=== PATIENT | female | born 1980 | race Caucasian/White ===

== ENCOUNTER 2016-05-21 15:55 | Inpatient (IN) | payer OTHER ==
[2016-05-21 18:01] VITALS: BMI 24.6
--- NOTE | 2016-05-21 19:47 | HP ---
COWS - Scale Resting Pulse: 0= HI 80 or Below Sweatin= Chills/Flushing Restless Observation: 3= Extraneous Movement Pupil Size: 0= Normal to Room Light Bone or Joint Aches: 2= Severe Diffuse Aches Runny Nose/ Eye Tearin= Runny Nose/Eyes GI Upset > 30mins: 2= Nausea/Diarrhea Tremor Observation: 2= Slight Tremor Visible Yawning Observation: 1= 1-2x During Session Anxiety or Irritability: 2=Irritable/Anxious Goose Flesh Skin: 3=Piloerection COWS Score: 18 CIWA Score - CIWA Score Nausea/Vomitin-Mild Nausea/No Vomiting Muscle Tremors: 4-Moderate,w/Arms Extend Anxiety: 4-Mod. Anxious/Guarded Agitation: 4-Moderately Restless Paroxysmal Sweats: 1-Minimal Palms Moist Orientation: 1-Uncertain about Date Tacttile Disturbances: 0-None Auditory Disturbances: 0-None Visual Disturbances: 0-None Headache: 1-Very Mild CIWA-Ar Total Score: 16 Admission ROS S - HPI Chief Complaint: WITHDRAWAL SX Allergies/Adverse Reactions: Allergies Allergy/AdvReac Type Severity Reaction Status Date / Time diphenhydramine HCl Allergy Severe Swelling Verified 03/07/16 11:07 [From Benadryl] sulfamethoxazole Allergy Severe Swelling Verified 03/07/16 11:07 [From Bactrim] trimethoprim [From Bactrim] Allergy Severe Swelling Verified 03/07/16 11:07 History of Present Illness: 35 YEARS OLD FEMALE WITH LONG HISTORY OF HEROIN ALCOHOL NICOTINE DEPENDENCE, HAS ASTHMA AND HERNIATED DISC AND BIPOLAR LONGEST SOBRIETY 7 DAYS IS ADMITTED TO DETOX Exam Limitations: No Limitations - Ebola screening Have you traveled outside of the country in the last 21 days: No Have you had contact with anyone from an Ebola affected area: No Have you been sick,other than usual withdrawal symptoms: No Do you have a fever: No - Review of Systems Constitutional: Chills, Loss of Appetite, Changes in sleep, Unintentional Wgt. Loss EENT: reports: No Symptoms Reported Respiratory: reports: SOB with Exertion, Productive cough Cardiac: reports: No Symptoms Reported GI: reports: Diarrhea, Nausea, Poor Appetite, Poor Fluid Intake, Abdominal cramping : reports: No Symptoms Reported Musculoskeletal: reports: Back Pain, Joint Pain, Muscle Pain, Neck Pain Integumentary: reports: Change in Color (BOTH FORE ARMS) Neuro: reports: Tremors Endocrine: reports: No Symptoms Reported Hematology: reports: No Symptoms Reported Psychiatric: reports: Judgement Intact, Anxious, Depressed Other Systems: Reviewed and Negative Patient History - Patient Medical History Hx Anemia: No Hx Asthma: Yes (Pt is on MDI) Hx Chronic Obstructive Pulmonary Disease (COPD): No Hx Cancer: No Hx Cardiac Disorders: No Hx Congestive Heart Failure: No Hx Hypertension: No Hx Hypercholesterolemia: No Hx Pacemaker: No HX Cerebrovascular Accident: No Hx Seizures: No Hx Dementia: No Hx Diabetes: No Hx Gastrointestinal Disorders: No Hx Liver Disease: No Hx Genitourinary Disorders: No Hx Sexually Transmitted Disorders: No Hx Renal Disease (ESRD): No Hx Thyroid Disease: No Hx Human Immunodeficiency Virus (HIV): No (NEGATIVE HX) Hx Hepatitis C: No Hx Depression: No (NOT CURRENTLY ON MED) Hx Suicide Attempt: Yes (tried to slit wrist a year ago;DENIES S/H IDEATIONS) Hx Bipolar Disorder: Yes Hx Schizophrenia: No - Patient Surgical History Past Surgical History: Yes Hx Neurologic Surgery: No Hx Cataract Extraction: No Hx Cardiac Surgery: No Hx Lung Surgery: No Hx Breast Surgery: No Hx Breast Biopsy: No Hx Abdominal Surgery: No Hx Appendectomy: No Hx Cholecystectomy: No Hx Genitourinary Surgery: No Hx Section: No Hx Orthopedic Surgery: No Hx Hysterectomy: No Other Surgical History: Tubal ligation in 2001. Anesthesia Reaction: No - PPD History Previous Implant?: Yes Documented Results: Negative w/o proof Implanted On Prior [facility] Admission?: Yes Date: 03/09/16 Results: TO BE DONE PPD to be Administered?: Yes - Reproductive History Patient is a Female of Child Bearing Age (11 -55 yrs old): Yes Last Menstrual Period: 05/07/16 Patient : No - Smoking Cessation Smoking history: Current every day smoker Have you smoked in the past 12 months: Yes Aproximately how many cigarettes per day: 20 Cigars Per Day: 0 Hx Chewing Tobacco Use: No Initiated information on smoking cessation: Yes 'Breaking Loose' booklet given: 05/21/16 - Substance & Tx. History Hx Alcohol Use: Yes Hx Substance Use: Yes Substance Use Type: Alcohol, Marijuana, Opiates Hx Substance Use Treatment: Yes - Substances Abused Alcohol Route: Oral Frequency: 3-6 times per week Amount used: 24OZX 4 BEER Age of first use: 10 Date of Last Use: 05/21/16 Heroin Route: Injection Frequency: Daily Amount used: 20 BAGS Age of first use: 27 Date of Last Use: 05/20/16 Family Disease History - Family Disease History Other Family History: GROW UP IN [facility] Admission Physical Exam S - Vital Signs Vital Signs: Vital Signs - 24 hr 05/21/16 17:58 Temperature 98.0 F Pulse Rate 63 Respiratory 18 Rate Blood Pressure 94/67 - Physical General Appearance: Yes: Appropriately Dressed, Mild Distress, Thin, Tremorous, Irritable, Sweating, Anxious HEENTM: Yes: Hearing grossly Normal, Normal ENT Inspection, Normocephalic, Normal Voice, Other (RIGHT LOWER TOOTH FX-GUM SWELL-AMOXICILLIN + LIDOCAIN) Respiratory: Yes: Chest Non-Tender, Lungs Clear, Normal Breath Sounds, No Respiratory Distress, No Accessory Muscle Use Neck: Yes: Supple, Trachea in good position Breast: Yes: Breasts Symetrical Cardiology: Yes: Regular Rhythm, Regular Rate, S1, S2 Abdominal: Yes: Non Tender, Soft Genitourinary: Yes: Within Normal Limits Back: Yes: Normal Inspection Musculoskeletal: Yes: full range of Motion, Gait Steady, Back pain, Muscle Pain Extremities: Yes: Normal Range of Motion, Non-Tender, Tremors Neurological: Yes: Alert, Motor Strength 5/5, Normal Response, Depressed Affect Integumentary: Yes: Warm, Moist, Track Howard Lymphatic: Yes: Within Normal Limits - Diagnostic (1) Alcohol dependence with uncomplicated withdrawal Current Visit: Yes Status: Acute (2) Bipolar disorder Current Visit: Yes Status: Suspected Qualifiers: Active/Remission status: in partial remission Most recent bipolar episode type: mixed Qualified Code(s): F31.77 - Bipolar disorder, in partial remission, most recent episode mixed (3) Opioid dependence with withdrawal Current Visit: Yes Status: Acute (4) Asthma Current Visit: Yes Status: Acute Qualifiers: Asthma severity: mild persistent Asthma complication type: with status asthmaticus Qualified Code(s): J45.32 - Mild persistent asthma with status asthmaticus (5) Fracture, tooth Current Visit: Yes Status: Acute Qualifiers: Encounter type: initial encounter Fracture type: closed Qualified Code(s): S02.5XXA - Fracture of tooth (traumatic), initial encounter for closed fracture (6) Herniated lumbar intervertebral disc Current Visit: Yes Status: Acute (7) Weight loss Current Visit: Yes Status: Acute Cleared for Admission [facility] - Detox or Rehab [facility] Level of Care: Medically Managed Detox Regimen/Protocol: Methadone/Librium [facility] Breath Alcohol Content Breath Alcohol Content: 0 Urine Pregancy Test - Result Urine Test Results: Negative- NO Line Present Urine Drug Screen - Results Drug Screen Negative: No Urine Drug Screen Results: THC-Marijuana, OPI-Opiates, OXY-Oxycodone
[2016-05-21] MEDS ORDERED: METHADONE HCL 10 MG TABLET (FOR DETOX USE ONLY) PO ONE ×2 (19:54→23:00)
[2016-05-21] MEDS ORDERED: guaiFENesin/D-METHORPHAN HB 10 ML UNIT-DOSE CUPS PO PRN (19:54)
[2016-05-21] MEDS ORDERED: MENTHOL/PHENOL 1 EACH UD MM PRN (19:54)
[2016-05-21] MEDS ORDERED: chlordiazePOXIDE HCL 25 MG CAPSULE PO PRN (19:54)
[2016-05-21] MEDS ORDERED: P-EPHED 60MG/TRIPROLIDI 2.5MG TABLET PO PRN (19:54)
[2016-05-21] MEDS ORDERED: MAG HYDROX/AL HYDROX/SIMETH 30 ML UNIT-DOSE CUP PO PRN (19:54)
[2016-05-21] MEDS ORDERED: MAGNESIUM CITRATE 300 ML BOTTLE PO PRN (19:54)
[2016-05-21] MEDS ORDERED: MAGNESIUM HYDROX 2400MG/30ML ORAL SUSPENSION 30 ML CUP PO PRN (19:54)
[2016-05-21] MEDS ORDERED: ACETAMINOPHEN 325 MG TABLET (FP) PO PRN (19:54)
[2016-05-21] MEDS ORDERED: LOPERAMIDE HCL 2 MG CAPSULE PO PRN (19:54)
[2016-05-21] MEDS ORDERED: LIDOCAINE VISCOUS 2% ORAL/TOP 20 ML UNIT-DOSE CUP MM PRN (19:57)
[2016-05-21] MEDS ORDERED: ALBUTEROL SO4 2.5/IPRATROPIUM 0.5 INH SOL 3 ML VIAL.NEB. NEB PRN (19:57)
[2016-05-21] MEDS ORDERED: BACITRACIN 0.9 GM PACKET TP ONE (19:57)
[2016-05-21] MEDS: THIAMINE HCL 100 MG TABLET (FP) PO SCH (22:30)
[2016-05-21] MEDS: chlordiazePOXIDE HCL 25 MG CAPSULE PO SCH (22:30)
[2016-05-21] MEDS: CYCLOBENZAPRINE HCL 10 MG TABLET (FP) PO PRN (22:31)
[2016-05-21] MEDS: AMOXICILLIN 500 MG CAPSULE (FP) PO SCH (22:35)
[2016-05-21 23:28] LABS: URINE APPEARANCE CLOUDY; URINE BILIRUBIN NEGATIVE (NEGATIVE); URINE BLOOD NEGATIVE (NEGATIVE); URINE COLOR YELLOW; URINE GLUCOSE (UA) NEGATIVE (NEGATIVE); URINE KETONE NEGATIVE (NEGATIVE); URINE NITRITE NEGATIVE (NEGATIVE); URINE PROTEIN NEGATIVE (NEGATIVE); URINE UROBILINOGEN NEGATIVE E.U./dl (0.2-1.0)
[2016-05-22] LABS: URINE LEUK ESTERASE 1+ (NEGATIVE)
[2016-05-22 00:08] LABS: URINE BACTERIA RARE /hpf (NONE SEEN); URINE MUCUS RARE; URINE RBC 6 /hpf (0-3); URINE WBC 14 /hpf (3-5)
[2016-05-22] MEDS: chlordiazePOXIDE HCL 25 MG CAPSULE PO SCH ×4 (06:01→22:12)
[2016-05-22] MEDS: IBUPROFEN 400 MG TABLET (FP) PO PRN ×3 (06:02→19:45)
--- NOTE | 2016-05-22 07:41 | CONSULT ---
[facility] Psychiatric Consult - Data Date of interview: 05/22/16 Admission source: [facility] Identifying data: This is 35 years old female with history of psychiatric hospitalization, history of Bipolar Disorder, intoxicated with: Alcohol, Opioids, Nicpotine Substance Abuse History: - Smoking Cessation. Smoking history: Current every day smoker. Have you smoked in the past 12 months: Yes. Aproximately how many cigarettes per day: 20. Cigars Per Day: 0. Hx Chewing Tobacco Use: No. Initiated information on smoking cessation: Yes. 'Breaking Loose' booklet given : 05/21/16. - Substance & Tx. History. Hx Alcohol Use: Yes. Hx Substance Use : Yes. Substance Use Type: Alcohol, Marijuana, Opiates. Hx Substance Use Treatment: Yes. - Substances Abused. Alcohol. Route: Oral. Frequency: 3- 6 times per week. Amount used: 24OZX 4 BEER. Age of first use: 10. Date of Last Use: 05/21/16. Heroin. Route: Injection. Frequency: Daily. Amount used: 20 BAGS. Age of first use: 27. Date of Last Use: 05/20/16 Medical History: Asthma, LBP, Lumbar herniation history, Weight loss Psychiatric History: Patient reports to carry Bipolar Disorder, reportas most recent psychiatgric admission at [facility] due to Psychotic episode on 2015, reports currently taking: Trazodone 100mg po qhs. Risperdal 1mg po,bid. Prozac 20mg poqd Physical/Sexual Abuse/Trauma History: Denies Additional Comment: Trazodone 100mg po qhs. Risperdal 1mg po,bid. Prozac 20mg poqd Mental Status Exam - Mental Status Exam Alert and Oriented to: Person Cognitive Function: Fair Patient Appearance: Unkempt Mood: Sad Affect: Flat Patient Behavior: Sedated Speech Pattern: Delayed Voice Loudness: Mildly Soft/Quiet Thought Process: Goal Oriented Thought Disorder: Being Controlled Hallucinations: Denies Suicidal Ideation: Denies Homicidal Ideation: Denies Insight/Judgement: Fair Sleep: Difficulty falling asleep Appetite: Weight loss Muscle strength/Tone: Mild Hypotonicity Gait/Station: Shuffling Additional Comments: Trazodone 100mg po qhs. Risperdal 1mg po,bid. Prozac 20mg poqd Psychiatric Findings - Problem List ([place] 1, 2,3) (1) Alcohol dependence with uncomplicated withdrawal Current Visit: Yes Status: Acute (2) Opioid dependence with withdrawal Current Visit: Yes Status: Acute (3) Weight loss Current Visit: Yes Status: Acute (4) Bipolar disorder Current Visit: Yes Status: Suspected Qualifiers: Active/Remission status: in partial remission Most recent bipolar episode type: mixed Qualified Code(s): F31.77 - Bipolar disorder, in partial remission, most recent episode mixed (5) Drug-induced mood disorder Current Visit: No Status: Acute - Initial Treatment Plan Initial Treatment Plan: Trazodone 100mg po qhs. Risperdal 1mg po,bid. Prozac 20mg poqd
[2016-05-22] MEDS ORDERED: METHADONE HCL 10 MG TABLET (FOR DETOX USE ONLY) PO SCH (10:00)
[2016-05-22] MEDS ORDERED: TRIMETHOBENZAMIDE HCL 200MG/2ML INJ IM ONE (10:03)
[2016-05-22] MEDS: PRENATAL VITAMINS W/ FOLIC ACID TABLET (FP) PO SCH (10:26)
[2016-05-22] MEDS: FLUoxetine HCL 20 MG CAPSULE (FP) PO SCH (10:26)
[2016-05-22] MEDS: risperiDONE 1 MG TABLET (FP) PO SCH ×2 (10:26→22:12)
[2016-05-22] MEDS: NICOTINE 21 MG/24 HOURS TOPICAL PATCH TD SCH (10:27)
[2016-05-22] MEDS: TRIMETHOBENZAMIDE HCL 300 MG CAPSULE PO PRN (10:30)
[2016-05-22 10:31] LABS: MCH 31.4 pg (25.7-33.7); MCHC 34.2 g/dl (32.0-36.0); MEAN CELL VOLUME 91.6 fl (80-96); MEAN PLT VOLUME 8.3 fl (7.5-11.1); PLATELET COUNT 195 K/MM3 (134-434); RDW 13.2 % (11.6-15.6); WHITE BLOOD COUNT 6.7 K/mm3 (4.0-10.0)
[2016-05-22 10:53] LABS: ALBUMIN 3.7 g/dl (3.4-5.0); ALK PHOS 71 U/L (45-117); ANION GAP 6 (8-16); BILIRUBIN,TOTAL 0.6 mg/dL (0.2-1.0); CALCIUM 8.8 mg/dL (8.5-10.1); CO2 26 mmol/L (21-32); CREATININE 0.7 mg/dL (0.55-1.02); GLUCOSE,RANDOM 89 mg/dL (74-106); SGOT/AST 13 U/L (15-37); SGPT/ALT 19 U/L (12-78); TOT PROT 6.8 g/dl (6.4-8.2)
--- NOTE | 2016-05-22 10:58 | PN ---
[facility] CIWA - CIWA Score Nausea/Vomitin-No Nausea/No Vomiting Muscle Tremors: 4-Moderate,w/Arms Extend Anxiety: 4-Mod. Anxious/Guarded Agitation: 4-Moderately Restless Paroxysmal Sweats: 3 Orientation: 0-Oriented Tacttile Disturbances: 0-None Auditory Disturbances: 0-None Visual Disturbances: 0-None Headache: 1-Very Mild CIWA-Ar Total Score: 16 BHS COWS - Scale Resting Pulse: 0= NM 80 or Below Sweatin=Flushed/Facial Moisture Restless Observation: 1= Difficult to Sit Still Pupil Size: 0= Normal to Room Light Bone or Joint Aches: 2= Severe Diffuse Aches Runny Nose/ Eye Tearin= Runny Nose/Eyes GI Upset > 30mins: 2= Nausea/Diarrhea Tremor Observation of Outstretched Hands: 2= Slight Tremor Visible Yawning Observation: 2= >3x During Session Anxiety or Irritability: 2=Irritable/Anxious Goose Flesh Skin: 3=Piloerection COWS Score: 18 BHS Progress Note (SOAP) Subjective: shakes sweats interrupted sleep agitation anxiety nausea/vomiting tearing eyes Objective: 05/22/16 10:57 Vital Signs Temperature 96.4 F L 05/22/16 10:08 Pulse Rate 68 05/22/16 10:08 Respiratory Rate 20 05/22/16 10:08 Blood Pressure 99/65 05/22/16 10:08 O2 Sat by Pulse Oximetry (%) Laboratory Tests 05/21/16 05/22/16 22:22 07:00 WBC 6.7 D RBC 4.28 Hgb 13.4 Hct 39.2 MCV 91.6 MCHC 34.2 RDW 13.2 D Plt Count 195 MPV 8.3 Urine Color Yellow Urine Appearance Cloudy Urine pH 5.0 Ur Specific [place] 1.027 Urine Protein Negative Urine Glucose (UA) Negative Urine Ketones Negative Urine Blood Negative Urine Nitrite Negative Urine Bilirubin Negative Urine Urobilinogen Negative Ur Leukocyte Esterase 1+ H Urine RBC 6 Urine WBC 14 Ur Epithelial Cells Many Urine Bacteria Rare Urine Mucus Rare labs pending awake/alert ambulating no acute distress Assessment: 05/22/16 10:57 withdrawal sx Plan: continue detox increase fluids tigan IM x one dose tigan po prn labs pending
[2016-05-22] MEDS: AMOXICILLIN 500 MG CAPSULE (FP) PO SCH ×2 (11:31→22:14)
--- NOTE | 2016-05-22 11:47 | EKG ---
Test Reason : Blood Pressure : / mmHG Vent. Rate : 053 BPM Atrial Rate : 053 BPM P-R Int : 158 ms QRS Dur : 094 ms QT Int : 414 ms P-R-T Axes : 068 085 044 degrees QTc Int : 388 ms SINUS BRADYCARDIA WITH SINUS ARRHYTHMIA INCOMPLETE RIGHT BUNDLE BRANCH BLOCK BORDERLINE ECG NO PREVIOUS ECGS AVAILABLE Confirmed by MELANI ABBOTT MD ([id number]) on 05/22/2016 11:47:00 AM Referred By: Confirmed By:MELANI ABBOTT MD
[2016-05-22] MEDS: CYCLOBENZAPRINE HCL 10 MG TABLET (FP) PO PRN ×2 (12:03→22:12)
[2016-05-22] MEDS: LIDOCAINE 5% TOPICAL PATCH TP SCH (12:04)
[2016-05-22] MEDS: ALBUTEROL SO4 6.7 GM HFA INHALER IH PRN ×2 (12:09→22:14)
[2016-05-22 12:26] LABS: HIV 1 & 2 AB NEGATIVE; HIV 1 AGp24 NEGATIVE
[2016-05-22] MEDS: THIAMINE HCL 100 MG TABLET (FP) PO SCH (22:12)
[2016-05-22] MEDS: traZODone HCL 100 MG TABLET (FP) PO SCH (22:12)
[2016-05-23] MEDS: chlordiazePOXIDE HCL 25 MG CAPSULE PO SCH ×3 (05:52→17:29)
[2016-05-23] MEDS: IBUPROFEN 400 MG TABLET (FP) PO PRN ×3 (05:52→22:11)
[2016-05-23] MEDS ORDERED: LIDOCAINE VISCOUS 2% ORAL/TOP 20 ML UNIT-DOSE CUP MM PRN (09:52)
[2016-05-23] MEDS: AMOXICILLIN 500 MG CAPSULE (FP) PO SCH ×2 (10:35→22:09)
[2016-05-23] MEDS: METHADONE HCL 5 MG TABLET (FOR DETOX USE ONLY) PO SCH (10:35)
[2016-05-23] MEDS: FLUoxetine HCL 20 MG CAPSULE (FP) PO SCH (10:36)
[2016-05-23] MEDS: PRENATAL VITAMINS W/ FOLIC ACID TABLET (FP) PO SCH (10:36)
[2016-05-23] MEDS: risperiDONE 1 MG TABLET (FP) PO SCH ×2 (10:36→22:09)
[2016-05-23] MEDS: NICOTINE 21 MG/24 HOURS TOPICAL PATCH TD SCH (10:38)
[2016-05-23] MEDS: CYCLOBENZAPRINE HCL 10 MG TABLET (FP) PO PRN ×2 (10:39→22:09)
[2016-05-23] MEDS: LIDOCAINE 5% TOPICAL PATCH TP SCH (10:42)
--- NOTE | 2016-05-23 10:56 | PN ---
S CIWA - CIWA Score Nausea/Vomitin Muscle Tremors: 3 Anxiety: 3 Agitation: 3 Paroxysmal Sweats: 3 Orientation: 0-Oriented Tacttile Disturbances: 2-Mild Itch/Numbness/Burn Auditory Disturbances: 0-None Visual Disturbances: 0-None Headache: 0-None Present CIWA-Ar Total Score: 17 BHS COWS - Scale Resting Pulse: 1= OR 81-100 Sweatin=Flushed/Facial Moisture Restless Observation: 1= Difficult to Sit Still Pupil Size: 1= Pupils >than Normal Bone or Joint Aches: 2= Severe Diffuse Aches Runny Nose/ Eye Tearin= Nasal Congestion GI Upset > 30mins: 1= Stomach Cramp Tremor Observation of Outstretched Hands: 2= Slight Tremor Visible Yawning Observation: 0= None Anxiety or Irritability: 2=Irritable/Anxious Goose Flesh Skin: 0=Smooth Skin COWS Score: 13 BHS Progress Note (SOAP) Subjective: interrupted sleep , sweats, shakes , nausea, toothache Objective: 05/23/16 10:53 Vital Signs Temperature 97.9 F 05/23/16 10:12 Pulse Rate 96 H 05/23/16 10:12 Respiratory Rate 18 05/23/16 10:12 Blood Pressure 99/61 05/23/16 10:12 O2 Sat by Pulse Oximetry (%) Laboratory Tests 05/21/16 05/22/16 05/22/16 22:22 07:00 07:00 WBC 6.7 D RBC 4.28 Hgb 13.4 Hct 39.2 MCV 91.6 MCHC 34.2 RDW 13.2 D Plt Count 195 MPV 8.3 Sodium 139 Potassium 4.1 Chloride 107 Carbon Dioxide 26 Anion Gap 6 L BUN 7 D Creatinine 0.7 Creat Clearance w eGFR > 60 Random Glucose 89 Calcium 8.8 Total Bilirubin 0.6 D AST 13 L ALT 19 D Alkaline Phosphatase 71 Total Protein 6.8 Albumin 3.7 Urine Color Yellow Urine Appearance Cloudy Urine pH 5.0 Ur Specific [place] 1.027 Urine Protein Negative Urine Glucose (UA) Negative Urine Ketones Negative Urine Blood Negative Urine Nitrite Negative Urine Bilirubin Negative Urine Urobilinogen Negative Ur Leukocyte Esterase 1+ H Urine RBC 6 Urine WBC 14 Ur Epithelial Cells Many Urine Bacteria Rare Urine Mucus Rare RPR Titer Hepatitis C Antibody HIV 1&2 Antibody Screen HIV P24 Antigen 05/22/16 05/22/16 05/22/16 07:00 07:00 07:00 WBC RBC Hgb Hct MCV MCHC RDW Plt Count MPV Sodium Potassium Chloride Carbon Dioxide Anion Gap BUN Creatinine Creat Clearance w eGFR Random Glucose Calcium Total Bilirubin AST ALT Alkaline Phosphatase Total Protein Albumin Urine Color Urine Appearance Urine pH Ur Specific [place] Urine Protein Urine Glucose (UA) Urine Ketones Urine Blood Urine Nitrite Urine Bilirubin Urine Urobilinogen Ur Leukocyte Esterase Urine RBC Urine WBC Ur Epithelial Cells Urine Bacteria Urine Mucus RPR Titer Nonreactive Hepatitis C Antibody <0.1 HIV 1&2 Antibody Screen Negative HIV P24 Antigen Negative pt aox3 in nad ambulating Assessment: 05/23/16 10:54 withdrawl sx's ltoothache lbp Plan: cont. detox increase fluids viscouis lidocaine q 6h motrin prn
[2016-05-23] MEDS: NICOTINE POLACRILEX 2 MG GUM BUC PRN ×2 (11:07→19:44)
[2016-05-23] MEDS: ALBUTEROL SO4 6.7 GM HFA INHALER IH PRN (22:09)
[2016-05-23] MEDS: traZODone HCL 100 MG TABLET (FP) PO SCH (22:09)
[2016-05-23] MEDS: chlordiazePOXIDE 5 MG CAPSULE PO SCH (22:09)
[2016-05-23] MEDS: THIAMINE HCL 100 MG TABLET (FP) PO SCH (22:09)
[2016-05-24] MEDS: chlordiazePOXIDE 5 MG CAPSULE PO SCH ×3 (07:03→17:08)
[2016-05-24] MEDS: IBUPROFEN 400 MG TABLET (FP) PO PRN ×2 (07:04→22:15)
[2016-05-24] MEDS: PRENATAL VITAMINS W/ FOLIC ACID TABLET (FP) PO SCH (10:44)
[2016-05-24] MEDS: AMOXICILLIN 500 MG CAPSULE (FP) PO SCH ×2 (10:44→22:14)
[2016-05-24] MEDS: risperiDONE 1 MG TABLET (FP) PO SCH ×2 (10:44→22:15)
[2016-05-24] MEDS: FLUoxetine HCL 20 MG CAPSULE (FP) PO SCH (10:44)
[2016-05-24] MEDS: LIDOCAINE 5% TOPICAL PATCH TP SCH (10:45)
[2016-05-24] MEDS: CYCLOBENZAPRINE HCL 10 MG TABLET (FP) PO PRN ×2 (10:45→22:14)
[2016-05-24] MEDS: METHADONE HCL 5 MG TABLET (FOR DETOX USE ONLY) PO SCH (10:45)
[2016-05-24] MEDS: ALBUTEROL SO4 6.7 GM HFA INHALER IH PRN (10:48)
[2016-05-24] MEDS: NICOTINE 21 MG/24 HOURS TOPICAL PATCH TD SCH (10:49)
--- NOTE | 2016-05-24 11:51 | PN ---
BHS Progress Note (SOAP) Subjective: hot/cold sweats chills sweats Objective: 05/24/16 11:50 Vital Signs Temperature 96.6 F L 05/24/16 10:00 Pulse Rate 93 H 05/24/16 10:00 Respiratory Rate 16 05/24/16 10:00 Blood Pressure 90/53 05/24/16 10:00 O2 Sat by Pulse Oximetry (%) Laboratory Tests 05/21/16 05/22/16 05/22/16 22:22 07:00 07:00 WBC 6.7 D RBC 4.28 Hgb 13.4 Hct 39.2 MCV 91.6 MCHC 34.2 RDW 13.2 D Plt Count 195 MPV 8.3 Sodium 139 Potassium 4.1 Chloride 107 Carbon Dioxide 26 Anion Gap 6 L BUN 7 D Creatinine 0.7 Creat Clearance w eGFR > 60 Random Glucose 89 Calcium 8.8 Total Bilirubin 0.6 D AST 13 L ALT 19 D Alkaline Phosphatase 71 Total Protein 6.8 Albumin 3.7 Urine Color Yellow Urine Appearance Cloudy Urine pH 5.0 Ur Specific [place] 1.027 Urine Protein Negative Urine Glucose (UA) Negative Urine Ketones Negative Urine Blood Negative Urine Nitrite Negative Urine Bilirubin Negative Urine Urobilinogen Negative Ur Leukocyte Esterase 1+ H Urine RBC 6 Urine WBC 14 Ur Epithelial Cells Many Urine Bacteria Rare Urine Mucus Rare RPR Titer Hepatitis C Antibody HIV 1&2 Antibody Screen HIV P24 Antigen 05/22/16 05/22/16 05/22/16 07:00 07:00 07:00 WBC RBC Hgb Hct MCV MCHC RDW Plt Count MPV Sodium Potassium Chloride Carbon Dioxide Anion Gap BUN Creatinine Creat Clearance w eGFR Random Glucose Calcium Total Bilirubin AST ALT Alkaline Phosphatase Total Protein Albumin Urine Color Urine Appearance Urine pH Ur Specific [place] Urine Protein Urine Glucose (UA) Urine Ketones Urine Blood Urine Nitrite Urine Bilirubin Urine Urobilinogen Ur Leukocyte Esterase Urine RBC Urine WBC Ur Epithelial Cells Urine Bacteria Urine Mucus RPR Titer Nonreactive Hepatitis C Antibody <0.1 HIV 1&2 Antibody Screen Negative HIV P24 Antigen Negative awake/alert ambulating no acute distress Assessment: 05/24/16 11:51 withdrawal sx Plan: continue detox increase fluids
[2016-05-24] MEDS: NICOTINE POLACRILEX 2 MG GUM BUC PRN ×3 (13:41→20:19)
[2016-05-24] MEDS: traZODone HCL 100 MG TABLET (FP) PO SCH (22:14)
[2016-05-24] MEDS: chlordiazePOXIDE HCL 10 MG CAPSULE PO SCH (22:15)
[2016-05-24] MEDS: THIAMINE HCL 100 MG TABLET (FP) PO SCH (22:16)
[2016-05-25] MEDS: chlordiazePOXIDE HCL 10 MG CAPSULE PO SCH ×2 (05:52→10:51)
[2016-05-25] MEDS ORDERED: METHADONE HCL 10 MG TABLET (FOR DETOX USE ONLY) PO SCH (10:00)
[2016-05-25] MEDS: TRIMETHOBENZAMIDE HCL 300 MG CAPSULE PO PRN (10:01)
[2016-05-25 10:06] VITALS: BP 104/50; PULSE 91; TEMP 97.2
[2016-05-25] MEDS: PRENATAL VITAMINS W/ FOLIC ACID TABLET (FP) PO SCH (10:51)
[2016-05-25] MEDS: risperiDONE 1 MG TABLET (FP) PO SCH (10:51)
[2016-05-25] MEDS: NICOTINE 21 MG/24 HOURS TOPICAL PATCH TD SCH (10:51)
[2016-05-25] MEDS: FLUoxetine HCL 20 MG CAPSULE (FP) PO SCH (10:51)
[2016-05-25] MEDS: AMOXICILLIN 500 MG CAPSULE (FP) PO SCH (10:52)
--- NOTE | 2016-05-25 12:04 | PN ---
BHS Progress Note (SOAP) Subjective: No complaints, does not want to stay for additional day of methadonem was medicated this am Objective: 05/25/16 12:03 Vital Signs - 24 hr 05/24/16 05/24/16 05/24/16 15:12 17:55 22:01 Temperature 97.9 F 97.9 F 96.8 F L Pulse Rate 101 H 80 90 Respiratory 18 20 20 Rate Blood Pressure 95/58 80/49 85/46 05/24/16 05/25/16 05/25/16 22:10 00:30 03:30 Temperature Pulse Rate Respiratory 16 18 Rate Blood Pressure 120/61 05/25/16 05/25/16 06:33 10:05 Temperature 98.6 F 97.2 F L Pulse Rate 76 91 H Respiratory 18 18 Rate Blood Pressure 104/66 104/50 Laboratory Tests 05/21/16 05/22/16 05/22/16 22:22 07:00 07:00 WBC 6.7 D RBC 4.28 Hgb 13.4 Hct 39.2 MCV 91.6 MCHC 34.2 RDW 13.2 D Plt Count 195 MPV 8.3 Sodium 139 Potassium 4.1 Chloride 107 Carbon Dioxide 26 Anion Gap 6 L BUN 7 D Creatinine 0.7 Creat Clearance w eGFR > 60 Random Glucose 89 Calcium 8.8 Total Bilirubin 0.6 D AST 13 L ALT 19 D Alkaline Phosphatase 71 Total Protein 6.8 Albumin 3.7 Urine Color Yellow Urine Appearance Cloudy Urine pH 5.0 Ur Specific [place] 1.027 Urine Protein Negative Urine Glucose (UA) Negative Urine Ketones Negative Urine Blood Negative Urine Nitrite Negative Urine Bilirubin Negative Urine Urobilinogen Negative Ur Leukocyte Esterase 1+ H Urine RBC 6 Urine WBC 14 Ur Epithelial Cells Many Urine Bacteria Rare Urine Mucus Rare RPR Titer Hepatitis C Antibody HIV 1&2 Antibody Screen HIV P24 Antigen 05/22/16 05/22/16 05/22/16 07:00 07:00 07:00 WBC RBC Hgb Hct MCV MCHC RDW Plt Count MPV Sodium Potassium Chloride Carbon Dioxide Anion Gap BUN Creatinine Creat Clearance w eGFR Random Glucose Calcium Total Bilirubin AST ALT Alkaline Phosphatase Total Protein Albumin Urine Color Urine Appearance Urine pH Ur Specific [place] Urine Protein Urine Glucose (UA) Urine Ketones Urine Blood Urine Nitrite Urine Bilirubin Urine Urobilinogen Ur Leukocyte Esterase Urine RBC Urine WBC Ur Epithelial Cells Urine Bacteria Urine Mucus RPR Titer Nonreactive Hepatitis C Antibody <0.1 HIV 1&2 Antibody Screen Negative HIV P24 Antigen Negative Assessment: 05/25/16 12:04 medically stable, no withdrawal sx Plan: regular discharge today, reviewed labwork
--- NOTE | 2016-05-25 12:06 | DS ---
[facility] Detox Discharge Summary Admission Date: 05/21/16 Discharge Date: 05/25/16 - History Present History: Alcohol Dependence, Opioid Dependence Pertinent Past History: astma, dental fx tooth - Physical Exam Results Vital Signs: Vital Signs Temperature 97.2 F L 05/25/16 10:05 Pulse Rate 91 H 05/25/16 10:05 Respiratory Rate 18 05/25/16 10:05 Blood Pressure 104/50 05/25/16 10:05 O2 Sat by Pulse Oximetry (%) Pertinent Admission Physical Exam Findings: withdrawal sx - Treatment Hospital Course: Detox Protocol Followed, Detoxed Safely, Responded well, Discharged Condition Good, Rehab Referral Accepted Patient has Accepted a Rehab Referral to: Yes - Medication Discharge Medications: Ambulatory Orders Albuterol Sulfate Inhaler - [Ventolin Hfa Inhaler -] 2 inh PO Q4H PRN 03/07/16 Fluoxetine HCl [Prozac -] 20 mg PO DAILY 03/07/16 Risperidone [Risperdal -] 1 mg PO BID #60 tablet 03/07/16 Trazodone HCl [Desyrel -] 100 mg PO HS 03/07/16 Fluoxetine HCl [Prozac -] 20 mg PO DAILY #30 capsule 05/22/16 Risperidone [Risperdal -] 1 mg PO BID #60 tablet 05/22/16 Trazodone HCl [Desyrel -] 100 mg PO HS #30 tablet 05/22/16 - Diagnosis (1) Alcohol dependence with uncomplicated withdrawal Current Visit: Yes Status: Acute (2) Asthma Current Visit: Yes Status: Acute Qualifiers: Asthma severity: mild persistent Asthma complication type: with status asthmaticus Qualified Code(s): J45.32 - Mild persistent asthma with status asthmaticus (3) Fracture, tooth Current Visit: Yes Status: Acute Qualifiers: Encounter type: initial encounter Fracture type: closed Qualified Code(s): S02.5XXA - Fracture of tooth (traumatic), initial encounter for closed fracture (4) Herniated lumbar intervertebral disc Current Visit: Yes Status: Acute (5) Opioid dependence with withdrawal Current Visit: Yes Status: Acute (6) Weight loss Current Visit: Yes Status: Acute (7) Bipolar disorder Current Visit: Yes Status: Suspected Qualifiers: Active/Remission status: in partial remission Most recent bipolar episode type: mixed Qualified Code(s): F31.77 - Bipolar disorder, in partial remission, most recent episode mixed (8) Drug-induced mood disorder Current Visit: No Status: Acute (9) History of asthma Current Visit: No Status: Chronic
[2016-05-26] MEDS ORDERED: METHADONE HCL 5 MG TABLET (FOR DETOX USE ONLY) PO SCH (06:00)
== END 2016-05-25 12:35 | disposition home or self-care (01) | DRG 897 ==
LOC: YASAS 15:55 → Y6N 20:59
PROVIDERS: ADMIT Internal Medicine Addiction Medicine; ATTEND Internal Medicine Addiction Medicine
PROC: HZ2ZZZZ Detoxification Services for Substance Abuse Treatment (ICD-10-PCS; principal; 2016-05-21)
DX: F19.230 Other psychoactive substance dependence with withdrawal, uncomplicated (principal); J45.32 Mild persistent asthma with status asthmaticus; F11.23 Opioid dependence with withdrawal; F10.230 Alcohol dependence with withdrawal, uncomplicated; F17.210 Nicotine dependence, cigarettes, uncomplicated; F19.24 Other psychoactive substance dependence with psychoactive substance-induced mood disorder; F31.77 Bipolar disorder, in partial remission, most recent episode mixed; K08.89 Other specified disorders of teeth and supporting structures; S02.5XXD Fracture of tooth (traumatic), subsequent encounter for fracture with routine healing; X58.XXXD Exposure to other specified factors, subsequent encounter; M51.26 Other intervertebral disc displacement, lumbar region; M54.5 Low back pain; Z87.898 Personal history of other specified conditions; Z91.5 Personal history of self-harm
CPT/HCPCS: 36415; 80053; 81003; 81015; 85027; 86593; 86803; 87389; 93005; 93010; 94640; J2794

== ENCOUNTER 2017-08-19 14:26 | Inpatient (IN) | payer OTHER ==
[2017-08-19 15:50] VITALS: BMI 28.3
--- NOTE | 2017-08-19 17:55 | HP ---
COWS - Scale Resting Pulse: 0= HI 80 or Below Sweatin= Chills/Flushing Restless Observation: 3= Extraneous Movement Pupil Size: 1= Pupils >than Normal Bone or Joint Aches: 1= Mild Discomfort Runny Nose/ Eye Tearin= Runny Nose/Eyes GI Upset > 30mins: 2= Nausea/Diarrhea Tremor Observation: 2= Slight Tremor Visible Yawning Observation: 1= 1-2x During Session Anxiety or Irritability: 2=Irritable/Anxious Goose Flesh Skin: 0=Smooth Skin COWS Score: 15 CIWA Score - CIWA Score Nausea/Vomitin (2x) Muscle Tremors: 2 Anxiety: 3 Agitation: 3 Paroxysmal Sweats: 2 Orientation: 0-Oriented Tacttile Disturbances: 0-None Auditory Disturbances: 0-None Visual Disturbances: 0-None Headache: 0-None Present CIWA-Ar Total Score: 13 Admission ROS S - HPI Chief Complaint: I am here for detox , I dont feel well Allergies/Adverse Reactions: Allergies Allergy/AdvReac Type Severity Reaction Status Date / Time diphenhydramine HCl Allergy Severe Swelling Verified 05/21/16 20:28 [From Benadryl] sulfamethoxazole Allergy Severe Swelling Verified 05/21/16 20:28 [From Bactrim] trimethoprim [From Bactrim] Allergy Severe Swelling Verified 05/21/16 20:28 History of Present Illness: 36 byo female with hx of IV heroin, xanax, marijuana and nicotine dependence is here seeking detox. PMHX: herniated disc, asthma, bipolar, manic depression, PTSD, anxiety. Last detox 45 days ago [facility] [place]. Denies suicide / homicidal ideation, hx of suicide attempts about a year ago by laceration wrist. Longest period of sobriety three weeks. Exam Limitations: Physical Impairment (ambulates with cane) - Ebola screening Have you traveled outside of the country in the last 21 days: No Have you had contact with anyone from an Ebola affected area: No Have you been sick,other than usual withdrawal symptoms: No Do you have a fever: No - Review of Systems Constitutional: Chills EENT: reports: No Symptoms Reported Respiratory: reports: Shortness of Breath (r/t to asthma, reports schedule Neb tx q4h, last Neb at [place] [facility] last night) Cardiac: reports: No Symptoms Reported GI: reports: Diarrhea, Nausea, Vomiting, Abdominal cramping : reports: Other (incontinence at night) Musculoskeletal: reports: Back Pain, Other (uses back brace and cane) Integumentary: reports: No Symptoms Reported Neuro: reports: No Symptoms reported Endocrine: reports: No Symptoms Reported Hematology: reports: No Symptoms Reported Psychiatric: reports: Orientated x3, Anxious Other Systems: Reviewed and Negative Patient History - Patient Medical History Hx Anemia: No Hx Asthma: Yes (Pt is on MDI) Hx Chronic Obstructive Pulmonary Disease (COPD): No Hx Cancer: No Hx Cardiac Disorders: No Hx Congestive Heart Failure: No Hx Hypertension: No Hx Hypercholesterolemia: No Hx Pacemaker: No HX Cerebrovascular Accident: No Hx Seizures: No Hx Dementia: No Hx Diabetes: No Hx Gastrointestinal Disorders: No Hx Liver Disease: No Hx Genitourinary Disorders: No Hx Sexually Transmitted Disorders: No Hx Renal Disease (ESRD): No Hx Thyroid Disease: No Hx Human Immunodeficiency Virus (HIV): No (NEGATIVE HX, last tested a year ago) Hx Hepatitis C: No Hx Depression: Yes (NOT CURRENTLY ON MED) Hx Suicide Attempt: Yes (tried to slit wrist a year ago;DENIES S/H IDEATIONS) Hx Bipolar Disorder: Yes Hx Schizophrenia: No - Patient Surgical History Past Surgical History: Yes Hx Neurologic Surgery: No Hx Cataract Extraction: No Hx Cardiac Surgery: No Hx Lung Surgery: No Hx Breast Surgery: No Hx Breast Biopsy: No Hx Abdominal Surgery: No Hx Appendectomy: No Hx Cholecystectomy: No Hx Genitourinary Surgery: No Hx Section: No Hx Orthopedic Surgery: No Hx Hysterectomy: No Other Surgical History: Tubal ligation in 2001. Anesthesia Reaction: No - PPD History Previous Implant?: Yes Documented Results: Negative w/proof Date: 05/23/16 Results: TO BE DONE PPD to be Administered?: Yes - Reproductive History Patient is a Female of Child Bearing Age (11 -55 yrs old): Yes Last Menstrual Period: 05/07/16 Patient : No - Smoking Cessation Smoking history: Current every day smoker Have you smoked in the past 12 months: Yes Aproximately how many cigarettes per day: 30 Cigars Per Day: 0 Hx Chewing Tobacco Use: No Initiated information on smoking cessation: Yes 'Breaking Loose' booklet given: 08/19/17 - Substance & Tx. History Hx Alcohol Use: No Hx Substance Use: Yes Substance Use Type: Heroin, Marijuana, Tranquilizers Hx Substance Use Treatment: Yes - Substances Abused Heroin Route: Injection Frequency: Daily Amount used: 20 bags Age of first use: 28 Date of Last Use: 08/18/17 Marijuana/Hashish Route: Smoking Frequency: Daily Amount used: 1 bag Age of first use: 11 Date of Last Use: 08/17/17 Alprazolam (Xanax) Route: Oral Frequency: Daily Amount used: 6 mg Age of first use: 24 Date of Last Use: 08/17/17 Family Disease History - Family Disease History Family History: Unable to Obtain (grew up in group homes) Admission Physical Exam [facility] - Vital Signs Vital Signs: Vital Signs - 24 hr 08/19/17 15:45 Temperature 97.6 F Pulse Rate 69 Respiratory 20 Rate Blood Pressure 117/71 - Physical General Appearance: Yes: Disheveled, Thin, Tremorous, Anxious HEENTM: Yes: EOMI, Hearing grossly Normal, Normal ENT Inspection, Normocephalic , Normal Voice, BARB, Pharynx Normal, Tm's normal, Other (poor dentition) Respiratory: Yes: Chest Non-Tender, No Respiratory Distress, No Accessory Muscle Use, Wheezing Neck: Yes: No masses,lesions,Nodules, Trachea in good position Breast: Yes: Breast Exam Deferred Cardiology: Yes: Regular Rhythm, Regular Rate Abdominal: Yes: Normal Bowel Sounds, Non Tender, Flat, Soft Genitourinary: Yes: Within Normal Limits Back: Yes: Normal Inspection Musculoskeletal: Yes: full range of Motion, Gait Steady, Other (ambulates with cane) Extremities: Yes: Normal Capillary Refill, Normal Inspection, Normal Range of Motion, Non-Tender 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 NML intact, Fully Oriented, Alert, Motor Strength 5/5, Depressed Affect Integumentary: Yes: Normal Color, Dry, Warm Lymphatic: Yes: Within Normal Limits - Diagnostic (1) Sedative, hypnotic or anxiolytic dependence with withdrawal, unspecified Current Visit: Yes Status: Acute (2) Use of cane as ambulatory aid Current Visit: Yes Status: Chronic (3) Alcohol dependence with uncomplicated withdrawal Current Visit: Yes Status: Acute (4) Asthma Current Visit: Yes Status: Chronic Qualifiers: Asthma severity: moderate Asthma complication type: with status asthmaticus (5) Herniated lumbar intervertebral disc Current Visit: Yes Status: Chronic (6) Opioid dependence with withdrawal Current Visit: Yes Status: Acute Cleared for Admission [facility] - Detox or Rehab [facility] Level of Care: Medically Managed Detox Regimen/Protocol: Methadone/Valium [facility] Breath Alcohol Content Breath Alcohol Content: 0 Urine Pregancy Test - Result Urine Test Results: Negative- NO Line Present Urine Drug Screen - Results Drug Screen Negative: No Urine Drug Screen Results: THC-Marijuana, OPI-Opiates, BZO-Benzodiazepines
[2017-08-19] MEDS ORDERED: diazePAM 5 MG TABLET PO ONE (18:15)
[2017-08-19] MEDS ORDERED: MAGNESIUM CITRATE 300 ML BOTTLE PO PRN (18:15)
[2017-08-19] MEDS ORDERED: LOPERAMIDE HCL 2 MG CAPSULE PO PRN (18:15)
[2017-08-19] MEDS ORDERED: MAG HYDROX/AL HYDROX/SIMETH 30 ML UNIT-DOSE CUP PO PRN (18:15)
[2017-08-19] MEDS ORDERED: MAGNESIUM HYDROX 2400MG/30ML ORAL SUSPENSION 30 ML CUP PO PRN (18:15)
[2017-08-19] MEDS ORDERED: METHADONE HCL 10 MG TABLET (FOR DETOX USE ONLY) PO ONE ×2 (18:15→23:00)
[2017-08-19] MEDS ORDERED: NICOTINE POLACRILEX 4 MG GUM BC PRN (18:15)
[2017-08-19] MEDS ORDERED: MENTHOL/PHENOL 1 EACH UD MM PRN (18:15)
[2017-08-19] MEDS ORDERED: ACETAMINOPHEN 325 MG TABLET (FP) PO PRN (18:15)
[2017-08-19] MEDS ORDERED: ALBUTEROL SO4 0.083% IH SOL 2.5 MG/3 ML VIAL.NEB. NEB PRN (18:20)
[2017-08-19] MEDS ORDERED: MELATONIN 5 MG TABLETS PO PRN (22:00)
[2017-08-19] MEDS: diazePAM 5 MG TABLET PO SCH (22:43)
[2017-08-19] MEDS: THIAMINE HCL 100 MG TABLET (FP) PO SCH (22:43)
[2017-08-19] MEDS: BUDESONIDE/FORMETEROL FUMARATE 160/4.5 mcg INHALER IH SCH (22:55)
[2017-08-20] MEDS: diazePAM 5 MG TABLET PO SCH ×3 (05:49→22:27)
[2017-08-20 06:15] LABS: URINE APPEARANCE TURBID; URINE BILIRUBIN NEGATIVE (<2.0 mg/dL); URINE COLOR YELLOW; URINE GLUCOSE (UA) NEGATIVE (NEGATIVE); URINE KETONE NEGATIVE (NEGATIVE); URINE NITRITE NEGATIVE (NEGATIVE); URINE UROBILINOGEN 4.0 E.U/dl mg/dL (0.2-1.0)
[2017-08-20 06:30] LABS: URINE LEUK ESTERASE 2+ (NEGATIVE); URINE PROTEIN 1+ (NEGATIVE)
[2017-08-20 06:32] LABS: CALCIUM OXALATE CRYSTALS MODERATE /hpf (NONE SEEN); EPI CELLS FEW /HPF (FEW); URINE BACTERIA MANY /hpf (NONE SEEN); URINE MUCUS MODERATE
--- NOTE | 2017-08-20 07:22 | CONSULT ---
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 Substance Abuse History: Smoking history: Current every day smoker. Have you smoked in the past 12 months: Yes. Aproximately how many cigarettes per day: 30. Cigars Per Day: 0. Hx Chewing Tobacco Use: No. Initiated information on smoking cessation: Yes. 'Breaking Loose' booklet given: 08/19/17. - Substance & Tx. History. Hx Alcohol Use: No. Hx Substance Use: Yes. Substance Use Type : Heroin, Marijuana, Tranquilizers. Hx Substance Use Treatment: Yes. - Substances Abused. Heroin. Route: Injection. Frequency: Daily. Amount used: 20 bags. Age of first use: 28. Date of Last Use: 08/18/17. Marijuana /Hashish. Route: Smoking. Frequency: Daily. Amount used: 1 bag. Age of first use: 11. Date of Last Use: 08/17/17. Alprazolam (Xanax). Route: Oral. Frequency: Daily. Amount used: 6 mg. Age of first use: 24. Date of Last Use: 08/17/17 Medical History: Reports history of lumbar herniated disc, asthma, Psychiatric History: Patient reports history of Bipolar Disorderwith most recent psychiatric admission on [facility] suicidal attempt by cutting her both wrists, 45-50 stitches applyed, reports no taking her medications at that time. Currently on : Depakote 750mg po bid. Seroquel 250mg po qhs. Patient reports out of her medicatiosn for last 2 weeks, motivated to restart medications, deniea suicidal and homicidal ideations Physical/Sexual Abuse/Trauma History: Denies Additional Comment: Depakote 500mg po bid. Sewroquel 250mg po qhs. Depakote blood level Mental Status Exam - Mental Status Exam Alert and Oriented to: Person Cognitive Function: Fair Patient Appearance: Unkempt Mood: Anxious Affect: Mood Congruent Patient Behavior: Cooperative Speech Pattern: Appropriate Voice Loudness: Normal Thought Process: Goal Oriented Thought Disorder: Being Controlled Hallucinations: Denies Suicidal Ideation: Denies Homicidal Ideation: Denies Insight/Judgement: Fair Sleep: Difficulty falling asleep Appetite: Weight loss Muscle strength/Tone: Mild Hypotonicity Gait/Station: Deferred Additional Comments: Depakote 500mg po bid. Sewroquel 250mg po qhs. Depakote blood level Psychiatric Findings - Problem List ([place] 1, 2,3) (1) Alcohol dependence with uncomplicated withdrawal Current Visit: Yes Status: Acute (2) Opioid dependence with withdrawal Current Visit: Yes Status: Acute (3) Sedative, hypnotic or anxiolytic dependence with withdrawal, unspecified Current Visit: Yes Status: Acute (4) Bipolar disorder Current Visit: No Status: Suspected Qualifiers: Active/Remission status: in partial remission Most recent bipolar episode type: mixed Qualified Code(s): F31.77 - Bipolar disorder, in partial remission , most recent episode mixed - Initial Treatment Plan Initial Treatment Plan: Depakote 500mg po bid. Sewroquel 250mg po qhs. Depakote blood level
--- NOTE | 2017-08-20 09:29 | EKG ---
Test Reason : Blood Pressure : / mmHG Vent. Rate : 085 BPM Atrial Rate : 085 BPM P-R Int : 132 ms QRS Dur : 096 ms QT Int : 350 ms P-R-T Axes : 076 083 054 degrees QTc Int : 416 ms NORMAL SINUS RHYTHM WITH SINUS ARRHYTHMIA INCOMPLETE RIGHT BUNDLE BRANCH BLOCK BORDERLINE ECG WHEN COMPARED WITH ECG OF 21-MAY-2016 22:49, VENT. RATE HAS INCREASED BY 32 BPM Confirmed by MILENA DEGROOT, MELANI ([id number]) on 08/20/2017 9:28:37 AM Referred By: Confirmed By:MELANI ABBOTT MD
[2017-08-20 09:58] LABS: HEMOGLOBIN 12.2 GM/dL (10.7-15.3); MCH 31.8 pg (25.7-33.7); MCHC 34.8 g/dl (32.0-36.0); MEAN CELL VOLUME 91.3 fl (80-96); MEAN PLT VOLUME 8.3 fl (7.5-11.1); PLATELET COUNT 164 K/MM3 (134-434); RBC 3.83 M/mm3 (3.60-5.2); RDW 15.6 % (11.6-15.6); WHITE BLOOD COUNT 5.8 K/mm3 (4.0-10.0)
[2017-08-20 09:59] LABS: CHLORIDE 113 mmol/L (98-107); POTASSIUM 3.9 mmol/L (3.5-5.1); SODIUM 143 mmol/L (136-145)
[2017-08-20] MEDS ORDERED: METHADONE HCL 10 MG TABLET (FOR DETOX USE ONLY) PO SCH (10:00)
[2017-08-20 10:20] LABS: ALBUMIN 3.1 g/dl (3.4-5.0); ALK PHOS 60 U/L (45-117); ANION GAP 6 (8-16); BILIRUBIN,TOTAL 0.2 mg/dL (0.2-1.0); BLOOD UREA NITROGEN 11 mg/dL (7-18); CALCIUM 8.1 mg/dL (8.5-10.1); CO2 24 mmol/L (21-32); CREATININE 0.7 mg/dL (0.55-1.02); GLUCOSE,RANDOM 80 mg/dL (74-106); SGOT/AST 14 U/L (15-37); SGPT/ALT 20 U/L (12-78)
[2017-08-20] MEDS: DIVALPROEX SODIUM 500 MG TABLET E.C. PO SCH ×2 (10:38→22:26)
[2017-08-20] MEDS: PRENATAL VITAMINS W/ FOLIC ACID TABLET (FP) PO SCH (10:38)
[2017-08-20] MEDS: NICOTINE 21 MG/24 HOURS TOPICAL PATCH TD SCH (10:40)
[2017-08-20] MEDS: BUDESONIDE/FORMETEROL FUMARATE 160/4.5 mcg INHALER IH SCH ×2 (11:45→22:27)
[2017-08-20] MEDS: IBUPROFEN 400 MG TABLET (FP) PO PRN ×2 (11:46→19:51)
--- NOTE | 2017-08-20 11:51 | PN ---
[facility] CIWA - CIWA Score Nausea/Vomitin-No Nausea/No Vomiting Muscle Tremors: 3 Anxiety: 4-Mod. Anxious/Guarded Agitation: 3 Paroxysmal Sweats: 1-Minimal Palms Moist Orientation: 0-Oriented Tacttile Disturbances: 0-None Auditory Disturbances: 0-None Visual Disturbances: 0-None Headache: 1-Very Mild CIWA-Ar Total Score: 12 [facility] COWS - Scale Resting Pulse: 0= NE 80 or Below Sweatin= Chills/Flushing Restless Observation: 1= Difficult to Sit Still Pupil Size: 0= Normal to Room Light Bone or Joint Aches: 2= Severe Diffuse Aches Runny Nose/ Eye Tearin= Runny Nose/Eyes GI Upset > 30mins: 1= Stomach Cramp Tremor Observation of Outstretched Hands: 2= Slight Tremor Visible Yawning Observation: 2= >3x During Session Anxiety or Irritability: 2=Irritable/Anxious Goose Flesh Skin: 0=Smooth Skin COWS Score: 13 S Progress Note (SOAP) Subjective: joint pain body ache sweat tremor anxiety restlessness trouble sleep at night Objective: 08/20/17 11:52 Vital Signs Temperature 96.4 F L 08/20/17 10:37 Pulse Rate 61 08/20/17 10:37 Respiratory Rate 18 08/20/17 10:37 Blood Pressure 100/65 08/20/17 10:37 O2 Sat by Pulse Oximetry (%) Laboratory Last Values WBC 5.8 K/mm3 (4.0-10.0) 08/20/17 08:00 RBC 3.83 M/mm3 (3.60-5.2) 08/20/17 08:00 Hgb 12.2 GM/dL (10.7-15.3) 08/20/17 08:00 Hct 35.0 % (32.4-45.2) 08/20/17 08:00 MCV 91.3 fl (80-96) 08/20/17 08:00 MCH 31.8 pg (25.7-33.7) 08/20/17 08:00 MCHC 34.8 g/dl (32.0-36.0) 08/20/17 08:00 RDW 15.6 % (11.6-15.6) D 08/20/17 08:00 Plt Count 164 K/MM3 (134-434) 08/20/17 08:00 MPV 8.3 fl (7.5-11.1) 08/20/17 08:00 Sodium 143 mmol/L (136-145) 08/20/17 08:00 Potassium 3.9 mmol/L (3.5-5.1) 08/20/17 08:00 Chloride 113 mmol/L (98-107) H 08/20/17 08:00 Carbon Dioxide 24 mmol/L (21-32) 08/20/17 08:00 Anion Gap 6 (8-16) L 08/20/17 08:00 BUN 11 mg/dL (7-18) 08/20/17 08:00 Creatinine 0.7 mg/dL (0.55-1.02) 08/20/17 08:00 Creat Clearance w eGFR > 60 (>60) 08/20/17 08:00 Random Glucose 80 mg/dL (74-106) 08/20/17 08:00 Calcium 8.1 mg/dL (8.5-10.1) L 08/20/17 08:00 Total Bilirubin 0.2 mg/dL (0.2-1.0) D 08/20/17 08:00 AST 14 U/L (15-37) L 08/20/17 08:00 ALT 20 U/L (12-78) 08/20/17 08:00 Alkaline Phosphatase 60 U/L (45-117) 08/20/17 08:00 Total Protein 6.0 g/dl (6.4-8.2) L 08/20/17 08:00 Albumin 3.1 g/dl (3.4-5.0) L 08/20/17 08:00 Urine Color Yellow 08/19/17 19:54 Urine Appearance Turbid 08/19/17 19:54 Urine pH 7.0 (5.0-8.0) D 08/19/17 19:54 Ur Specific [place] 1.026 (1.001-1.035) 08/19/17 19:54 Urine Protein 1+ (NEGATIVE) H 08/19/17 19:54 Urine Glucose (UA) Negative (NEGATIVE) 08/19/17 19:54 Urine Ketones Negative (NEGATIVE) 08/19/17 19:54 Urine Blood Negative (NEGATIVE) 08/19/17 19:54 Urine Nitrite Negative (NEGATIVE) 08/19/17 19:54 Urine Bilirubin Negative (<2.0 mg/dL) 08/19/17 19:54 Urine Urobilinogen 4.0 e.u/dl mg/dL (0.2-1.0) H 08/19/17 19:54 Ur Leukocyte Esterase 2+ (NEGATIVE) H 08/19/17 19:54 Urine WBC (Auto) 45 /hpf (3-5) 08/19/17 19:54 Urine RBC (Auto) 6 /hpf (0-3) 08/19/17 19:54 Ur Epithelial Cells Few /HPF (FEW) 08/19/17 19:54 Calcium Oxalate Crystal Moderate /hpf (NONE SEEN) 08/19/17 19:54 Urine Bacteria Many /hpf (NONE SEEN) 08/19/17 19:54 Urine Mucus Moderate 08/19/17 19:54 08/20/17 11:54 lab noted uti Assessment: 08/20/17 11:54 withdrawal sx 08/20/17 11:55 uti Plan: continue detox levaquin 250 mg q24h x 3
[2017-08-20] MEDS: ALBUTEROL SO4 18 GM HFA INHALER IH PRN ×2 (12:55→22:27)
[2017-08-20] MEDS: diazePAM 5 MG TABLET PO PRN (19:51)
[2017-08-20] MEDS ORDERED: QUEtiapine FUMARATE 50 MG TABLET ONE (21:31)
[2017-08-20] MEDS ORDERED: QUEtiapine FUMARATE 200 MG TABLET ONE (21:32)
[2017-08-20] MEDS ORDERED: QUEtiapine FUMARATE 200 MG TABLET PO SCH (22:00)
[2017-08-20] MEDS: QUETIAPINE FUMARATE 200 MG, QUETIAPINE FUMARATE 50 MG PO SCH (22:27)
[2017-08-20] MEDS: THIAMINE HCL 100 MG TABLET (FP) PO SCH (22:28)
[2017-08-21] MEDS: IBUPROFEN 400 MG TABLET (FP) PO PRN (06:12)
[2017-08-21] MEDS ORDERED: BACLOFEN 10 MG TABLET (FP) PO ONE (10:28)
--- NOTE | 2017-08-21 10:36 | PN ---
[facility] CIWA - CIWA Score Nausea/Vomitin-No Nausea/No Vomiting Muscle Tremors: 3 Anxiety: 3 Agitation: 3 Paroxysmal Sweats: 1-Minimal Palms Moist Orientation: 0-Oriented Tacttile Disturbances: 1-Very Mild Itch/Numbness Auditory Disturbances: 0-None Visual Disturbances: 0-None Headache: 0-None Present CIWA-Ar Total Score: 11 [facility] COWS - Scale Resting Pulse: 1= [place] 81-100 Sweatin= Chills/Flushing Restless Observation: 1= Difficult to Sit Still Pupil Size: 0= Normal to Room Light Bone or Joint Aches: 1= Mild Discomfort Runny Nose/ Eye Tearin= Nasal Congestion GI Upset > 30mins: 1= Stomach Cramp Tremor Observation of Outstretched Hands: 2= Slight Tremor Visible Yawning Observation: 2= >3x During Session Anxiety or Irritability: 2=Irritable/Anxious Goose Flesh Skin: 0=Smooth Skin COWS Score: 12 [facility] Progress Note (SOAP) Subjective: chronic back pain joint ache muscle cramp sweat tremor restlessness Objective: 08/21/17 10:33 Vital Signs Temperature 98.2 F 08/21/17 09:59 Pulse Rate 95 H 08/21/17 09:59 Respiratory Rate 18 08/21/17 09:59 Blood Pressure 116/61 08/21/17 09:59 O2 Sat by Pulse Oximetry (%) Laboratory Last Values WBC 5.8 K/mm3 (4.0-10.0) 08/20/17 08:00 RBC 3.83 M/mm3 (3.60-5.2) 08/20/17 08:00 Hgb 12.2 GM/dL (10.7-15.3) 08/20/17 08:00 Hct 35.0 % (32.4-45.2) 08/20/17 08:00 MCV 91.3 fl (80-96) 08/20/17 08:00 MCH 31.8 pg (25.7-33.7) 08/20/17 08:00 MCHC 34.8 g/dl (32.0-36.0) 08/20/17 08:00 RDW 15.6 % (11.6-15.6) D 08/20/17 08:00 Plt Count 164 K/MM3 (134-434) 08/20/17 08:00 MPV 8.3 fl (7.5-11.1) 08/20/17 08:00 Sodium 143 mmol/L (136-145) 08/20/17 08:00 Potassium 3.9 mmol/L (3.5-5.1) 08/20/17 08:00 Chloride 113 mmol/L (98-107) H 08/20/17 08:00 Carbon Dioxide 24 mmol/L (21-32) 08/20/17 08:00 Anion Gap 6 (8-16) L 08/20/17 08:00 BUN 11 mg/dL (7-18) 08/20/17 08:00 Creatinine 0.7 mg/dL (0.55-1.02) 08/20/17 08:00 Creat Clearance w eGFR > 60 (>60) 08/20/17 08:00 Random Glucose 80 mg/dL (74-106) 08/20/17 08:00 Calcium 8.1 mg/dL (8.5-10.1) L 08/20/17 08:00 Total Bilirubin 0.2 mg/dL (0.2-1.0) D 08/20/17 08:00 AST 14 U/L (15-37) L 08/20/17 08:00 ALT 20 U/L (12-78) 08/20/17 08:00 Alkaline Phosphatase 60 U/L (45-117) 08/20/17 08:00 Total Protein 6.0 g/dl (6.4-8.2) L 08/20/17 08:00 Albumin 3.1 g/dl (3.4-5.0) L 08/20/17 08:00 Urine Color Yellow 08/19/17 19:54 Urine Appearance Turbid 08/19/17 19:54 Urine pH 7.0 (5.0-8.0) D 08/19/17 19:54 Ur Specific [place] 1.026 (1.001-1.035) 08/19/17 19:54 Urine Protein 1+ (NEGATIVE) H 08/19/17 19:54 Urine Glucose (UA) Negative (NEGATIVE) 08/19/17 19:54 Urine Ketones Negative (NEGATIVE) 08/19/17 19:54 Urine Blood Negative (NEGATIVE) 08/19/17 19:54 Urine Nitrite Negative (NEGATIVE) 08/19/17 19:54 Urine Bilirubin Negative (<2.0 mg/dL) 08/19/17 19:54 Urine Urobilinogen 4.0 e.u/dl mg/dL (0.2-1.0) H 08/19/17 19:54 Ur Leukocyte Esterase 2+ (NEGATIVE) H 08/19/17 19:54 Urine WBC (Auto) 45 /hpf (3-5) 08/19/17 19:54 Urine RBC (Auto) 6 /hpf (0-3) 08/19/17 19:54 Ur Epithelial Cells Few /HPF (FEW) 08/19/17 19:54 Calcium Oxalate Crystal Moderate /hpf (NONE SEEN) 08/19/17 19:54 Urine Bacteria Many /hpf (NONE SEEN) 08/19/17 19:54 Urine Mucus Moderate 08/19/17 19:54 RPR Titer Nonreactive (NONREACTIVE) 08/20/17 08:00 HIV 1&2 Antibody Screen Negative 08/20/17 08:00 HIV P24 Antigen Negative 08/20/17 08:00 lab noted 08/21/17 10:36 uti continue levaquin Assessment: 08/21/17 10:36 withdrawal sx uti 08/21/17 10:37 chronic lower back pain Plan: continue detox levaquin 250 mg increase oral fluid baclofen + lidocain patch + abdomen binder + cane
[2017-08-21] MEDS: NICOTINE 21 MG/24 HOURS TOPICAL PATCH TD SCH (10:40)
[2017-08-21] MEDS: METHADONE HCL 5 MG TABLET (FOR DETOX USE ONLY) PO SCH (10:40)
[2017-08-21] MEDS: BUDESONIDE/FORMETEROL FUMARATE 160/4.5 mcg INHALER IH SCH ×2 (10:40→22:21)
[2017-08-21] MEDS: diazePAM 5 MG TABLET PO SCH ×2 (10:40→22:21)
[2017-08-21] MEDS: PRENATAL VITAMINS W/ FOLIC ACID TABLET (FP) PO SCH (10:40)
[2017-08-21] MEDS: DIVALPROEX SODIUM 500 MG TABLET E.C. PO SCH ×2 (10:40→22:22)
[2017-08-21] MEDS: LIDOCAINE 5% TOPICAL PATCH TP SCH (10:42)
[2017-08-21] MEDS: diazePAM 5 MG TABLET PO PRN (17:15)
[2017-08-21] MEDS ORDERED: QUEtiapine FUMARATE 50 MG TABLET ONE (19:41)
[2017-08-21] MEDS ORDERED: QUEtiapine FUMARATE 200 MG TABLET ONE (19:42)
[2017-08-21] MEDS: THIAMINE HCL 100 MG TABLET (FP) PO SCH (22:21)
[2017-08-21] MEDS: QUETIAPINE FUMARATE 200 MG, QUETIAPINE FUMARATE 50 MG PO SCH (22:22)
[2017-08-21] MEDS: LIDOCAINE PATCH REMOVAL MC SCH (22:23)
[2017-08-22] MEDS: diazePAM 5 MG TABLET PO PRN ×2 (05:55→15:11)
--- NOTE | 2017-08-22 10:13 | PN ---
[facility] Progress Note (SOAP) Subjective: nausea, sweats, interrupetd sleep,a nxiety, tremors Objective: 08/22/17 10:11 Vital Signs - 24 hr 08/21/17 08/21/17 08/21/17 14:26 18:00 22:00 Temperature 98.2 F 98.2 F 98.6 F Pulse Rate 93 H 80 71 Respiratory 18 18 16 Rate Blood Pressure 115/64 116/50 89/57 08/22/17 08/22/17 00:30 07:24 Temperature 97.2 F L Pulse Rate 94 H Respiratory 18 18 Rate Blood Pressure 120/72 Laboratory Tests 08/19/17 08/20/17 08/20/17 19:54 08:00 08:00 WBC 5.8 RBC 3.83 Hgb 12.2 Hct 35.0 MCV 91.3 MCH 31.8 MCHC 34.8 RDW 15.6 D Plt Count 164 MPV 8.3 Sodium Potassium Chloride Carbon Dioxide Anion Gap BUN Creatinine Creat Clearance w eGFR Random Glucose Calcium Total Bilirubin AST ALT Alkaline Phosphatase Total Protein Albumin Urine Color Yellow Urine Appearance Turbid Urine pH 7.0 D Ur Specific [place] 1.026 Urine Protein 1+ H Urine Glucose (UA) Negative Urine Ketones Negative Urine Blood Negative Urine Nitrite Negative Urine Bilirubin Negative Urine Urobilinogen 4.0 e.u/dl H Ur Leukocyte Esterase 2+ H Urine WBC (Auto) 45 Urine RBC (Auto) 6 Ur Epithelial Cells Few Calcium Oxalate Crystal Moderate Urine Bacteria Many Urine Mucus Moderate RPR Titer HIV 1&2 Antibody Screen Negative HIV P24 Antigen Negative 08/20/17 08/20/17 08:00 08:00 WBC RBC Hgb Hct MCV MCH MCHC RDW Plt Count MPV Sodium 143 Potassium 3.9 Chloride 113 H Carbon Dioxide 24 Anion Gap 6 L BUN 11 Creatinine 0.7 Creat Clearance w eGFR > 60 Random Glucose 80 Calcium 8.1 L Total Bilirubin 0.2 D AST 14 L ALT 20 Alkaline Phosphatase 60 Total Protein 6.0 L Albumin 3.1 L Urine Color Urine Appearance Urine pH Ur Specific [place] Urine Protein Urine Glucose (UA) Urine Ketones Urine Blood Urine Nitrite Urine Bilirubin Urine Urobilinogen Ur Leukocyte Esterase Urine WBC (Auto) Urine RBC (Auto) Ur Epithelial Cells Calcium Oxalate Crystal Urine Bacteria Urine Mucus RPR Titer Nonreactive HIV 1&2 Antibody Screen HIV P24 Antigen Assessment: 08/22/17 10:12 withdrawal sx - cont detox, fluids, encourage ambualtion vitamins
[2017-08-22] MEDS: METHADONE HCL 5 MG TABLET (FOR DETOX USE ONLY) PO SCH (10:18)
[2017-08-22] MEDS: PRENATAL VITAMINS W/ FOLIC ACID TABLET (FP) PO SCH (10:18)
[2017-08-22] MEDS: DIVALPROEX SODIUM 500 MG TABLET E.C. PO SCH ×2 (10:18→22:13)
[2017-08-22] MEDS: diazePAM 5 MG TABLET PO SCH ×2 (10:18→22:13)
[2017-08-22] MEDS: BUDESONIDE/FORMETEROL FUMARATE 160/4.5 mcg INHALER IH SCH ×2 (10:18→22:45)
[2017-08-22] MEDS: NICOTINE 21 MG/24 HOURS TOPICAL PATCH TD SCH (10:19)
[2017-08-22] MEDS: LIDOCAINE 5% TOPICAL PATCH TP SCH (10:19)
--- NOTE | 2017-08-22 13:28 | PN ---
Psychiatric Progress Note Vital Signs: Vital Signs Period Temp Pulse Resp BP Sys/Romero Pulse Ox Last 24 Hr 97.2 F-98.6 F 71-94 16-18 89-120/50-72 Date of Session: 08/22/17 Chief Complaint:: " Can i restart my buspar for anxiety." HPI: Pt. admitted to for heroin, xanax, marijuana and nicotine dependence, ROS: Unremarkable Current Medications: Active Medications Generic Name Dose Route Start Last Admin Trade Name Freq PRN Reason Stop Dose Admin Acetaminophen 650 mg 08/19/17 18:15 Tylenol - PO Q4H PRN FEVER Al Hydroxide/Mg Hydroxide 30 ml 08/19/17 18:15 Mylanta Oral Suspension - PO Q6H PRN DYSPEPSIA Albuterol Sulfate 2 puff 08/19/17 18:11 08/20/17 22:27 Ventolin Hfa Inhaler - IH 2 puff Q4H PRN Administration ASTHMA Albuterol Sulfate 1 amp 08/19/17 18:20 Ventolin 0.083% Nebulizer Soln - NEB Q4H PRN SHORT OF BREATH/WHEEZING Budesonide/Formoterol Fumarate 1 puff 08/19/17 22:00 08/22/17 10:18 Symbicort 160/4.5mcg - IH 1 puff BID DENTON Administration Diazepam 5 mg 08/21/17 10:00 08/22/17 10:18 Valium - PO 08/22/17 22:01 5 mg BID DENTON Administration Diazepam 5 mg 08/23/17 10:00 Valium - PO 08/23/17 10:01 DAILY DENTON Diazepam 10 mg 08/19/17 18:15 08/22/17 05:55 Valium - PO 08/22/17 18:15 10 mg Q4H PRN Administration WITHDRAWAL(CONT SUBST) Divalproex Sodium 500 mg 08/20/17 10:00 08/22/17 10:18 Depakote - PO 500 mg BID DENTON Administration Eucalyptus/Menthol/Phenol/Sorbitol 1 each 08/19/17 18:15 Cepastat Lozenge - MM Q4H PRN SORE THROAT Guaifenesin 10 ml 08/19/17 18:15 Robitussin Dm - PO Q6H PRN COUGH Hydroxyzine Pamoate 50 mg 08/19/17 18:15 Vistaril - PO Q4H PRN AGITATION Ibuprofen 400 mg 08/19/17 18:15 08/21/17 06:12 Motrin - PO 400 mg Q6H PRN Administration PAIN LEVEL 4-6 Lidocaine 1 patch 08/21/17 10:30 08/22/17 10:19 Lidoderm Patch - TP 1 patch DAILY DENTON Administration Loperamide HCl 4 mg 08/19/17 18:15 Imodium - PO Q6H PRN DIARRHEA Magnesium Citrate 300 ml 08/19/17 18:15 Citroma - PO Q48H PRN CONSTIPATION Magnesium Hydroxide 30 ml 08/19/17 18:15 Milk Of Magnesia - PO DAILY PRN CONSTIPATION Melatonin 5 mg 08/19/17 22:00 08/19/17 22:45 Melatonin PO 5 mg HS PRN Administration INSOMNIA Methadone HCl 10 mg 08/23/17 10:00 Dolophine - PO 08/23/17 10:01 DAILY DENTON Methadone HCl 5 mg 08/24/17 06:00 Dolophine - PO 08/24/17 06:01 DAILY@0600 DENTON Miscellaneous 1 each 08/21/17 22:00 08/21/17 22:23 Lidoderm Patch Removal MC Not Given DAILY@2200 DENTON Nicotine 21 mg 08/20/17 10:00 08/22/17 10:19 Nicoderm Patch - TD 21 mg DAILY DENTON Administration Nicotine Polacrilex 4 mg 08/19/17 18:15 Nicorette Gum - BC Q2H PRN NICOTINE REPLACEMENT RX Multivit/Folic Acid/Iron 1 tab 08/20/17 10:00 08/22/17 10:18 Vitamins (Sjr) - PO 1 tab DAILY DENTON Administration Quetiapine Fumarate 200 mg/ 250 mg 08/20/17 22:00 08/21/17 22:22 Quetiapine Fumarate 50 mg PO 250 mg HS DENTON Administration Thiamine HCl 100 mg 08/19/17 22:00 08/21/17 22:21 Vitamin B1 - PO 100 mg HS DENTON Administration Medication(s) Change(s): Yes. 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 Pt. requesting to restart buspar for anxiety. Reports not taking medication for two weeks but is now motivated to resume medication. Pt. unaware of her dose but is agreeable to restarting buspar at 10mg BID. Benefits and side effects discussed. Pt. able to tolerate depakote 500mg BID and seroquel 250mg qhs. Depakote level to be ordered for tomorrow morning. Pt. also informed that vistaril 50mg is ordered as needed every 4 hours. Patient satisified and receptive to feedback. Will continue to monitor. Total face to face time:: 25 Mental Status Exam - Mental Status Exam Alert and Oriented to: Time, Place, Person Cognitive Function: Good Patient Appearance: Well Groomed Mood: Hopeful Affect: Appropriate Patient Behavior: Cooperative Speech Pattern: Clear, Appropriate Voice Loudness: Normal Thought Process: Goal Oriented Thought Disorder: Not Present Hallucinations: Denies Suicidal Ideation: Denies Homicidal Ideation: Denies Insight/Judgement: Poor Sleep: Fair Appetite: Fair Muscle strength/Tone: Normal Gait/Station: Normal Psychiatric Treatment Plan - Problem List (1) Alcohol dependence with uncomplicated withdrawal Current Visit: Yes (2) Sedative, hypnotic or anxiolytic dependence with withdrawal, unspecified Current Visit: Yes (3) Opioid dependence with withdrawal Current Visit: Yes (4) Bipolar disorder Current Visit: No Qualifiers: Active/Remission status: in partial remission Most recent bipolar episode type: mixed Qualified Code(s): F31.77 - Bipolar disorder, in partial remission , most recent episode mixed
[2017-08-22] MEDS ORDERED: QUEtiapine FUMARATE 50 MG TABLET ONE (21:13)
[2017-08-22] MEDS ORDERED: QUEtiapine FUMARATE 200 MG TABLET ONE (21:13)
[2017-08-22] MEDS: hydrOXYzine PAMOATE 50 MG CAPSULE (FP) PO PRN (22:13)
[2017-08-22] MEDS: QUETIAPINE FUMARATE 200 MG, QUETIAPINE FUMARATE 50 MG PO SCH (22:13)
[2017-08-22] MEDS: busPIRone HCL 10 MG TABLET (FP) PO SCH (22:13)
[2017-08-22] MEDS: THIAMINE HCL 100 MG TABLET (FP) PO SCH (22:13)
[2017-08-22] MEDS: LIDOCAINE PATCH REMOVAL MC SCH (22:45)
[2017-08-23] MEDS ORDERED: METHADONE HCL 10 MG TABLET (FOR DETOX USE ONLY) PO SCH (10:00)
[2017-08-23] MEDS ORDERED: diazePAM 5 MG TABLET PO SCH (10:00)
[2017-08-23] MEDS: DIVALPROEX SODIUM 500 MG TABLET E.C. PO SCH ×2 (10:39→22:35)
[2017-08-23] MEDS: PRENATAL VITAMINS W/ FOLIC ACID TABLET (FP) PO SCH (10:39)
[2017-08-23] MEDS: BUDESONIDE/FORMETEROL FUMARATE 160/4.5 mcg INHALER IH SCH ×2 (10:39→22:35)
[2017-08-23] MEDS: NICOTINE 21 MG/24 HOURS TOPICAL PATCH TD SCH (10:39)
[2017-08-23] MEDS: busPIRone HCL 10 MG TABLET (FP) PO SCH ×2 (10:39→22:35)
[2017-08-23] MEDS: LIDOCAINE 5% TOPICAL PATCH TP SCH (10:40)
[2017-08-23] MEDS: CYCLOBENZAPRINE HCL 5 MG TABLET PO PRN ×3 (10:44→22:35)
[2017-08-23] MEDS: guaiFENesin/D-METHORPHAN HB 10 ML UNIT-DOSE CUPS PO PRN (13:33)
[2017-08-23] MEDS: hydrOXYzine PAMOATE 50 MG CAPSULE (FP) PO PRN ×2 (17:55→22:35)
--- NOTE | 2017-08-23 20:24 | PN ---
BHS Progress Note (SOAP) Subjective: shakes sweats Generalized pain Objective: 08/23/17 20:23 A & ox 3 ambulates with a cane 08/23/17 20:23 Vital Signs Temperature 98.6 F 08/23/17 17:53 Pulse Rate 93 H 08/23/17 17:53 Respiratory Rate 20 08/23/17 17:53 Blood Pressure 116/69 08/23/17 17:53 O2 Sat by Pulse Oximetry (%) Assessment: 08/23/17 20:24 withdrawal sx Plan: continue detox for d/c in a.m
[2017-08-23] MEDS ORDERED: QUEtiapine FUMARATE 50 MG TABLET ONE (21:40)
[2017-08-23] MEDS ORDERED: QUEtiapine FUMARATE 200 MG TABLET ONE (21:40)
[2017-08-23] MEDS: QUETIAPINE FUMARATE 200 MG, QUETIAPINE FUMARATE 50 MG PO SCH (22:35)
[2017-08-23] MEDS: THIAMINE HCL 100 MG TABLET (FP) PO SCH (22:36)
[2017-08-23] MEDS: LIDOCAINE PATCH REMOVAL MC SCH (22:56)
[2017-08-24] MEDS: guaiFENesin/D-METHORPHAN HB 10 ML UNIT-DOSE CUPS PO PRN (05:26)
[2017-08-24] MEDS ORDERED: METHADONE HCL 5 MG TABLET (FOR DETOX USE ONLY) PO SCH (06:00)
[2017-08-24 06:26] VITALS: BP 114/63; PULSE 113; TEMP 97.7
[2017-08-24] MEDS: busPIRone HCL 10 MG TABLET (FP) PO SCH (09:36)
[2017-08-24] MEDS: PRENATAL VITAMINS W/ FOLIC ACID TABLET (FP) PO SCH (09:36)
[2017-08-24] MEDS: hydrOXYzine PAMOATE 50 MG CAPSULE (FP) PO PRN (09:36)
[2017-08-24] MEDS: DIVALPROEX SODIUM 500 MG TABLET E.C. PO SCH (09:36)
[2017-08-24] MEDS: BUDESONIDE/FORMETEROL FUMARATE 160/4.5 mcg INHALER IH SCH (09:37)
[2017-08-24] MEDS: LIDOCAINE 5% TOPICAL PATCH TP SCH (09:37)
[2017-08-24] MEDS: ALBUTEROL SO4 18 GM HFA INHALER IH PRN (09:37)
--- NOTE | 2017-08-24 13:53 | DS ---
[facility] Detox Discharge Summary Admission Date: 08/19/17 Discharge Date: 08/24/17 - History Present History: Opioid Dependence, Sedative Dependence Additional Comments: 36 years old female admitted for opioid and benzo detox completed detox regimen tolerated well denies opioid and benzo withdrawal sx patient determines to remain sober aftercare as per counselor arranged - Physical Exam Results Vital Signs: Vital Signs Temperature 97.7 F 08/24/17 06:00 Pulse Rate 113 H 08/24/17 06:00 Respiratory Rate 18 08/24/17 06:00 Blood Pressure 114/63 08/24/17 06:00 O2 Sat by Pulse Oximetry (%) Pertinent Admission Physical Exam Findings: Vital Signs Temperature 97.7 F 08/24/17 06:00 Pulse Rate 113 H 08/24/17 06:00 Respiratory Rate 18 08/24/17 06:00 Blood Pressure 114/63 08/24/17 06:00 O2 Sat by Pulse Oximetry (%) Laboratory Last Values WBC 5.8 K/mm3 (4.0-10.0) 08/20/17 08:00 RBC 3.83 M/mm3 (3.60-5.2) 08/20/17 08:00 Hgb 12.2 GM/dL (10.7-15.3) 08/20/17 08:00 Hct 35.0 % (32.4-45.2) 08/20/17 08:00 MCV 91.3 fl (80-96) 08/20/17 08:00 MCH 31.8 pg (25.7-33.7) 08/20/17 08:00 MCHC 34.8 g/dl (32.0-36.0) 08/20/17 08:00 RDW 15.6 % (11.6-15.6) D 08/20/17 08:00 Plt Count 164 K/MM3 (134-434) 08/20/17 08:00 MPV 8.3 fl (7.5-11.1) 08/20/17 08:00 Sodium 143 mmol/L (136-145) 08/20/17 08:00 Potassium 3.9 mmol/L (3.5-5.1) 08/20/17 08:00 Chloride 113 mmol/L (98-107) H 08/20/17 08:00 Carbon Dioxide 24 mmol/L (21-32) 08/20/17 08:00 Anion Gap 6 (8-16) L 08/20/17 08:00 BUN 11 mg/dL (7-18) 08/20/17 08:00 Creatinine 0.7 mg/dL (0.55-1.02) 08/20/17 08:00 Creat Clearance w eGFR > 60 (>60) 08/20/17 08:00 Random Glucose 80 mg/dL (74-106) 08/20/17 08:00 Calcium 8.1 mg/dL (8.5-10.1) L 08/20/17 08:00 Total Bilirubin 0.2 mg/dL (0.2-1.0) D 08/20/17 08:00 AST 14 U/L (15-37) L 08/20/17 08:00 ALT 20 U/L (12-78) 08/20/17 08:00 Alkaline Phosphatase 60 U/L (45-117) 08/20/17 08:00 Total Protein 6.0 g/dl (6.4-8.2) L 08/20/17 08:00 Albumin 3.1 g/dl (3.4-5.0) L 08/20/17 08:00 Urine Color Yellow 08/19/17 19:54 Urine Appearance Turbid 08/19/17 19:54 Urine pH 7.0 (5.0-8.0) D 08/19/17 19:54 Ur Specific [place] 1.026 (1.001-1.035) 08/19/17 19:54 Urine Protein 1+ (NEGATIVE) H 08/19/17 19:54 Urine Glucose (UA) Negative (NEGATIVE) 08/19/17 19:54 Urine Ketones Negative (NEGATIVE) 08/19/17 19:54 Urine Blood Negative (NEGATIVE) 08/19/17 19:54 Urine Nitrite Negative (NEGATIVE) 08/19/17 19:54 Urine Bilirubin Negative (<2.0 mg/dL) 08/19/17 19:54 Urine Urobilinogen 4.0 e.u/dl mg/dL (0.2-1.0) H 08/19/17 19:54 Ur Leukocyte Esterase 2+ (NEGATIVE) H 08/19/17 19:54 Urine WBC (Auto) 45 /hpf (3-5) 08/19/17 19:54 Urine RBC (Auto) 6 /hpf (0-3) 08/19/17 19:54 Ur Epithelial Cells Few /HPF (FEW) 08/19/17 19:54 Calcium Oxalate Crystal Moderate /hpf (NONE SEEN) 08/19/17 19:54 Urine Bacteria Many /hpf (NONE SEEN) 08/19/17 19:54 Urine Mucus Moderate 08/19/17 19:54 Valproic Acid 56.883 ug/ml (50-100) 08/23/17 08:00 RPR Titer Nonreactive (NONREACTIVE) 08/20/17 08:00 HIV 1&2 Antibody Screen Negative 08/20/17 08:00 HIV P24 Antigen Negative 08/20/17 08:00 lab noted - Treatment Hospital Course: Detox Protocol Followed, Detoxed Safely, Responded well, Discharged Condition Good, Rehab Referral Accepted Patient has Accepted a Rehab Referral to: [facility] - Medication Discharge Medications: Ambulatory Orders Divalproex [Depakote -] 750 mg PO BID 08/19/17 Quetiapine Fumarate [Seroquel -] 250 mg PO HS 08/19/17 Divalproex [Depakote -] 500 mg PO BID #60 tablet.ec 08/20/17 Quetiapine Fumarate [Seroquel -] 250 mg PO HS #30 tablet 08/20/17 Buspirone HCl [Buspar -] 10 mg PO BID #60 tablet 08/22/17 Albuterol Sulfate Inhaler - [Ventolin HFA Inhaler -] 2 inh PO Q4H PRN #1 inhaler 08/24/17 Budesonide/Formeterol Fumarate [SYMBICORT 160/4.5mcg -] 1 inh PO BID #1 inhaler 08/24/17 - Diagnosis (1) Opioid dependence with withdrawal Status: Acute (2) Sedative, hypnotic or anxiolytic dependence with withdrawal, unspecified Status: Acute (3) Asthma Status: Chronic Qualifiers: Asthma severity: moderate Asthma complication type: with status asthmaticus (4) Use of cane as ambulatory aid Status: Chronic (5) Bipolar disorder Status: Suspected Qualifiers: Active/Remission status: in partial remission Most recent bipolar episode type: mixed Qualified Code(s): F31.77 - Bipolar disorder, in partial remission , most recent episode mixed - AMA Did Patient Leave Against Medical Advice: No
== END 2017-08-24 10:05 | disposition home or self-care (01) | DRG 897 ==
LOC: YASAS 14:26 → Y6N 17:00
PROVIDERS: ADMIT Internal Medicine; ATTEND Internal Medicine
PROC: HZ2ZZZZ Detoxification Services for Substance Abuse Treatment (ICD-10-PCS; principal; 2017-08-19)
DX: F11.23 Opioid dependence with withdrawal (principal); J45.42 Moderate persistent asthma with status asthmaticus; F13.230 Sedative, hypnotic or anxiolytic dependence with withdrawal, uncomplicated; F10.230 Alcohol dependence with withdrawal, uncomplicated; F31.77 Bipolar disorder, in partial remission, most recent episode mixed; F43.10 Post-traumatic stress disorder, unspecified; F41.9 Anxiety disorder, unspecified; M51.26 Other intervertebral disc displacement, lumbar region; R26.89 Other abnormalities of gait and mobility; Z99.89 Dependence on other enabling machines and devices; Z91.5 Personal history of self-harm; Z59.0 Homelessness
CPT/HCPCS: 36415; 80053; 80164; 81003; 81015; 85027; 86593; 87389; 93005; 93010; 94640; J0475

== ENCOUNTER 2018-02-28 11:24 | Inpatient (IN) | payer OTHER ==
[2018-02-28 12:01] VITALS: BMI 26.9
--- NOTE | 2018-02-28 12:22 | HP ---
COWS - Scale Resting Pulse: 0= [place] 80 or Below Sweatin= Chills/Flushing Restless Observation: 3= Extraneous Movement Pupil Size: 0= Normal to Room Light Bone or Joint Aches: 1= Mild Discomfort Runny Nose/ Eye Tearin= Nasal Congestion GI Upset > 30mins: 2= Nausea/Diarrhea Tremor Observation: 2= Slight Tremor Visible Yawning Observation: 0= None Anxiety or Irritability: 1=Feels Anxious/Irritable Goose Flesh Skin: 0=Smooth Skin COWS Score: 11 Admission ROS BHS - HPI Chief Complaint: I'm tired of it, tired, sick, I need to do something to stop Allergies/Adverse Reactions: Allergies Allergy/AdvReac Type Severity Reaction Status Date / Time diphenhydramine HCl Allergy Severe Swelling Verified 02/28/18 11:59 [From Benadryl] sulfamethoxazole Allergy Severe Swelling Verified 02/28/18 11:59 [From Bactrim] History of Present Illness: 37 yo woman here for detox from opiates, also using marijuana, denies alcohol use. Tremulous, restless, jiggling leg. Denies seizures or overdose, does have black outs. Counseled her to consider rehab and medication assisted therapy to support her recovery. Exam Limitations: No Limitations - Ebola screening Have you been sick,other than usual withdrawal symptoms: No - Review of Systems Constitutional: Loss of Appetite, Malaise, Night Sweats, Changes in sleep, Unintentional Wgt. Loss EENT: reports: Blurred Vision, Nose Congestion Respiratory: reports: Wheezing, Other (non productive cough) Cardiac: reports: No Symptoms Reported GI: reports: Nausea, Abdominal cramping Musculoskeletal: reports: Back Pain, Joint Pain, Muscle Pain Integumentary: reports: Bruising Neuro: reports: Headache, Tremors Endocrine: reports: No Symptoms Reported Hematology: reports: No Symptoms Reported Psychiatric: reports: Judgement Intact, Mood/Affect Appropiate, Anxious Other Systems: Reviewed and Negative Patient History - Patient Medical History Hx Anemia: No Hx Asthma: Yes (Pt is on MDI) Hx Chronic Obstructive Pulmonary Disease (COPD): No Hx Cancer: No Hx Cardiac Disorders: No Hx Congestive Heart Failure: No Hx Hypertension: No Hx Hypercholesterolemia: No Hx Pacemaker: No HX Cerebrovascular Accident: No Hx Seizures: No Hx Dementia: No Hx Diabetes: No Hx Gastrointestinal Disorders: No Hx Liver Disease: No Hx Genitourinary Disorders: No Hx Sexually Transmitted Disorders: No Hx Renal Disease (ESRD): No Hx Thyroid Disease: No Hx Human Immunodeficiency Virus (HIV): No (NEGATIVE HX, last tested a year ago) Hx Hepatitis C: No Hx Depression: Yes (hospitalized two years ago) Hx Suicide Attempt: Yes (tried to slit wrist a year ago;DENIES S/H IDEATIONS) Hx Bipolar Disorder: Yes Hx Schizophrenia: No - Patient Surgical History Past Surgical History: Yes Hx Neurologic Surgery: No Hx Cataract Extraction: No Hx Cardiac Surgery: No Hx Lung Surgery: No Hx Breast Surgery: No Hx Breast Biopsy: No Hx Abdominal Surgery: Yes (tubal ligation 2001) Hx Appendectomy: No Hx Cholecystectomy: No Hx Genitourinary Surgery: No Hx Section: No Hx Orthopedic Surgery: No Hx Hysterectomy: No Anesthesia Reaction: No - PPD History Previous Implant?: Yes Documented Results: Negative w/proof Implanted On Prior R Admission?: Yes Date: 08/21/17 Results: NEGATIVE PPD to be Administered?: No - Reproductive History Patient is a Female of Child Bearing Age (11 -55 yrs old): Yes Last Menstrual Period: 02/27/18 Patient : No - Smoking Cessation Smoking history: Current every day smoker Have you smoked in the past 12 months: Yes Aproximately how many cigarettes per day: 20 Cigars Per Day: 0 Hx Chewing Tobacco Use: No Initiated information on smoking cessation: Yes 'Breaking Loose' booklet given: 02/28/18 (give on floor) - Substance & Tx. History Hx Alcohol Use: No Hx Substance Use: Yes Substance Use Type: Heroin, Marijuana Hx Substance Use Treatment: Yes (detox) - Substances Abused Heroin Route: Injection Frequency: Daily Amount used: 15 BAGS Age of first use: 26 Date of Last Use: 02/28/18 marijuana Route: Smoking Frequency: Daily Amount used: 1 blunt Age of first use: 9 Date of Last Use: 02/28/18 Family Disease History - Family Disease History Family Disease History: Other: Father (no contact, grew up in foster care), Mother (no contact, grew up in foster care), Brother (two - no contact), Sister (threev - no contact), Son (one age 16 - healthy), Daughter (one age 21 - healthy) Admission Physical Exam BHS - Vital Signs Vital Signs: Vital Signs - 24 hr 02/28/18 11:59 Temperature 98.9 F Pulse Rate 58 L Respiratory 16 Rate Blood Pressure 93/43 L - Physical General Appearance: Yes: Nourished, Appropriately Dressed, Moderate Distress, Tremorous, Anxious HEENTM: Yes: EOMI, Hearing grossly Normal, Normocephalic, Normal Voice, Pharynx Normal, Nasal Congestion Respiratory: Yes: No Respiratory Distress, Rhonchi Neck: Yes: No masses,lesions,Nodules, Supple Breast: Yes: Breast Exam Deferred Cardiology: Yes: Regular Rhythm, Regular Rate Abdominal: Yes: Non Tender, Flat Genitourinary: Yes: Hesitency Back: Yes: Normal Inspection Musculoskeletal: Yes: full range of Motion, Gait Steady, Back pain, Muscle Pain Extremities: Yes: Normal Inspection, Normal Range of Motion Neurological: Yes: Fully Oriented, Alert, Motor Strength 5/5, Normal Mood/Affect , Normal Response Integumentary: Yes: Normal Color, Warm, Track Howard (both arms,hands), Other ( left arm with abscess - echymotic, tender) Lymphatic: Yes: Within Normal Limits - Diagnostic (1) Opioid dependence with withdrawal Current Visit: Yes Status: Chronic (2) Abscess of arm, left Current Visit: Yes Status: Acute (3) Cannabis dependence Current Visit: Yes Status: Chronic (4) Herniated lumbar intervertebral disc Current Visit: Yes Status: Chronic (5) Nicotine dependence Current Visit: Yes Status: Chronic Qualifiers: Nicotine product type: cigarettes Substance use status: uncomplicated Qualified Code(s): F17.210 - Nicotine dependence, cigarettes, uncomplicated (6) Asthma Current Visit: Yes Status: Chronic Qualifiers: Asthma severity: moderate Asthma persistence: persistent Asthma complication type: with status asthmaticus Qualified Code(s): J45.42 - Moderate persistent asthma with status asthmaticus Cleared for Admission [facility] - Detox or Rehab [facility] Level of Care: Medically Managed Detox Regimen/Protocol: Methadone [facility] Breath Alcohol Content Breath Alcohol Content: 0 Urine Pregancy Test - Result Urine Test Results: Negative- NO Line Present Urine Drug Screen - Results Drug Screen Negative: No Urine Drug Screen Results: THC-Marijuana, OPI-Opiates, FEN-Fentanyl
[2018-02-28] MEDS ORDERED: MENTHOL/PHENOL 1 EACH UD MM PRN (12:25)
[2018-02-28] MEDS ORDERED: ACETAMINOPHEN 325 MG TABLET (FP) PO PRN (12:25)
[2018-02-28] MEDS ORDERED: LOPERAMIDE HCL 2 MG CAPSULE PO PRN (12:25)
[2018-02-28] MEDS ORDERED: guaiFENesin/D-METHORPHAN HB 10 ML UNIT-DOSE CUPS PO PRN (12:25)
[2018-02-28] MEDS ORDERED: MAGNESIUM HYDROX 2400MG/30ML ORAL SUSPENSION 30 ML CUP PO PRN (12:25)
[2018-02-28] MEDS ORDERED: IBUPROFEN 400 MG TABLET (FP) PO PRN (12:25)
[2018-02-28] MEDS ORDERED: MAG HYDROX/AL HYDROX/SIMETH 30 ML UNIT-DOSE CUP PO PRN (12:25)
[2018-02-28] MEDS ORDERED: MAGNESIUM CITRATE 300 ML BOTTLE PO PRN (12:25)
[2018-02-28] MEDS ORDERED: ALBUTEROL SO4 2.5/IPRATROPIUM 0.5 INH SOL 3 ML VIAL.NEB. NEB PRN (12:39)
[2018-02-28] MEDS: CEPHALEXIN MONOHYDRATE 500 MG CAPSULE (UD) PO SCH ×2 (13:26→22:27)
[2018-02-28] MEDS: diazePAM 5 MG TABLET PO PRN (13:27)
[2018-02-28] MEDS: NICOTINE 21 MG/24 HOURS TOPICAL PATCH TD SCH (13:27)
[2018-02-28] MEDS ORDERED: METHADONE HCL 10 MG TABLET (FOR DETOX USE ONLY) PO ONE ×2 (13:30→23:00)
[2018-02-28] MEDS: BUDESONIDE/FORMETEROL FUMARATE 160/4.5 mcg INHALER IH SCH ×2 (15:15→22:27)
[2018-02-28 17:24] LABS: URINE APPEARANCE CLEAR; URINE BILIRUBIN NEGATIVE (<2.0 mg/dL); URINE COLOR YELLOW; URINE GLUCOSE (UA) NEGATIVE (NEGATIVE); URINE KETONE NEGATIVE (NEGATIVE); URINE LEUK ESTERASE NEGATIVE (NEGATIVE); URINE NITRITE NEGATIVE (NEGATIVE); URINE PROTEIN NEGATIVE (NEGATIVE); URINE UROBILINOGEN 4.0 E.U/dl mg/dL (0.2-1.0)
[2018-02-28] MEDS: THIAMINE HCL 100 MG TABLET (FP) PO SCH (22:27)
[2018-02-28] MEDS: MELATONIN 5 MG TABLETS PO PRN (22:28)
[2018-03-01] MEDS: diazePAM 5 MG TABLET PO PRN ×3 (07:10→17:47)
[2018-03-01] MEDS ORDERED: METHADONE HCL 10 MG TABLET (FOR DETOX USE ONLY) PO ONE (10:00)
--- NOTE | 2018-03-01 10:06 | CONSULT ---
[facility] Psychiatric Consult - Data Date of interview: 03/01/18 Admission source: [facility] Identifying data: 37 y/o female mother of 2, unemployed, homeless, SSI recipient Substance Abuse History: Admitted for detoxification of opiates, ETOH withdrawal , Marijuana, Xanax and nicotine. Drink alcohol daily, used 15 bags of heroin daily ( IVDA ). She has had several in patient Detox admissions. Refer to addiction counselor note for more detailed chronological history of her substance use disorder Medical History: Herniated disc dorso-lumbar spine , Asthma Psychiatric History: She reports mulpiple past psychiatric hospitalizations for her chronoc Bipolar illness. Her mosre recent in patient valencia admission was at [facility] in [facility], last yearsfter she cut her writs with a kitchen knife in a suicide gesture. CC: insomnia, anxiety and depressed mood. She complains of feeling tired and fatigued. Current psychotropic medications: Buspar 10 mg po bid, Serqoquel 250 mg po q hs. Depakote 750 mg po bid Physical/Sexual Abuse/Trauma History: Denied Mental Status Exam - Mental Status Exam Alert and Oriented to: Place, Person Cognitive Function: Grossly Intact Patient Appearance: Disheveled Mood: Anxious Affect: Appropriate Patient Behavior: Appropriate, Cooperative Speech Pattern: Clear Voice Loudness: Normal Thought Process: Intact Thought Disorder: Not Present Hallucinations: Denies Suicidal Ideation: Denies Homicidal Ideation: Denies Insight/Judgement: Poor Sleep: Poorly Appetite: Fair Muscle strength/Tone: Mild Hypotonicity Psychiatric Findings - Problem List ([place] 1, 2,3) (1) Asthma Current Visit: Yes Status: Chronic Qualifiers: Asthma severity: moderate Asthma persistence: persistent Asthma complication type: with status asthmaticus Qualified Code(s): J45.42 - Moderate persistent asthma with status asthmaticus (2) Cannabis dependence Current Visit: Yes Status: Chronic (3) Herniated lumbar intervertebral disc Current Visit: Yes Status: Chronic (4) Nicotine dependence Current Visit: Yes Status: Chronic Qualifiers: Nicotine product type: cigarettes Substance use status: uncomplicated Qualified Code(s): F17.210 - Nicotine dependence, cigarettes, uncomplicated (5) Opioid dependence with withdrawal Current Visit: Yes Status: Chronic (6) Alcohol dependence with uncomplicated withdrawal Current Visit: No Status: Acute (7) Bipolar disorder Current Visit: No Status: Suspected Qualifiers: Active/Remission status: in partial remission Most recent bipolar episode type: mixed Qualified Code(s): F31.77 - Bipolar disorder, in partial remission , most recent episode mixed - Initial Treatment Plan Initial Treatment Plan: Continue in patient Detox admission. Psychoeducation. Buspar 10 mg po bid. Seroquel 250 mg po q hs. Depakote 750 mg po bid. Blood VPA level. Monitor response
[2018-03-01] MEDS: PRENATAL VITAMINS W/ FOLIC ACID TABLET (FP) PO SCH (10:08)
[2018-03-01] MEDS: BUDESONIDE/FORMETEROL FUMARATE 160/4.5 mcg INHALER IH SCH ×2 (10:09→22:39)
[2018-03-01] MEDS: CEPHALEXIN MONOHYDRATE 500 MG CAPSULE (UD) PO SCH ×2 (10:09→22:19)
[2018-03-01] MEDS: NICOTINE 21 MG/24 HOURS TOPICAL PATCH TD SCH (10:09)
[2018-03-01] MEDS: ALBUTEROL SO4 8 GM HFA INHALER IH PRN (10:11)
[2018-03-01] MEDS ORDERED: DIVALPROEX NA *ER* EXTEND REL 500 MG TABLET.SA (FP) PO ONE (10:19)
--- NOTE | 2018-03-01 10:31 | PN ---
BHS COWS - Scale Resting Pulse: 1= [place] 81-100 Sweatin= Chills/Flushing Restless Observation: 1= Difficult to Sit Still Pupil Size: 1= Pupils >than Normal Bone or Joint Aches: 2= Severe Diffuse Aches Runny Nose/ Eye Tearin= Nasal Congestion GI Upset > 30mins: 1= Stomach Cramp Tremor Observation of Outstretched Hands: 1= Tremor Rickman, Not Seen Yawning Observation: 1= 1-2x During Session Anxiety or Irritability: 1=Feels Anxious/Irritable Goose Flesh Skin: 0=Smooth Skin COWS Score: 11 S Progress Note (SOAP) Subjective: body ache joints pain trouble sleep at night anxiety tremor sweat Objective: 03/01/18 10:35 Vital Signs Temperature 98.1 F 03/01/18 09:40 Pulse Rate 77 03/01/18 09:40 Respiratory Rate 18 03/01/18 09:40 Blood Pressure 100/57 L 03/01/18 09:40 O2 Sat by Pulse Oximetry (%) Laboratory Last Values Urine Color Yellow 02/28/18 13:07 Urine Appearance Clear 02/28/18 13:07 Urine pH 7.0 (5.0-8.0) 02/28/18 13:07 Ur Specific [place] 1.021 (1.010-1.035) 02/28/18 13:07 Urine Protein Negative (NEGATIVE) 02/28/18 13:07 Urine Glucose (UA) Negative (NEGATIVE) 02/28/18 13:07 Urine Ketones Negative (NEGATIVE) 02/28/18 13:07 Urine Blood Negative (NEGATIVE) 02/28/18 13:07 Urine Nitrite Negative (NEGATIVE) 02/28/18 13:07 Urine Bilirubin Negative (<2.0 mg/dL) 02/28/18 13:07 Urine Urobilinogen 4.0 e.u/dl mg/dL (0.2-1.0) H 02/28/18 13:07 Ur Leukocyte Esterase Negative (NEGATIVE) 02/28/18 13:07 lab noted Assessment: 03/01/18 10:35 withdraw Plan: continue detox
[2018-03-01 10:32] LABS: HEMATOCRIT 39.3 % (32.4-45.2); HEMOGLOBIN 12.8 GM/dL (10.7-15.3); MCH 27.8 pg (25.7-33.7); MCHC 32.5 g/dl (32.0-36.0); MEAN CELL VOLUME 85.6 fl (80-96); PLATELET COUNT 242 K/MM3 (134-434); RBC 4.59 M/mm3 (3.60-5.2); RDW 14.6 % (11.6-15.6); WHITE BLOOD COUNT 5.4 K/mm3 (4.0-10.0)
[2018-03-01 10:59] LABS: ALBUMIN 3.5 g/dl (3.4-5.0); ALK PHOS 93 U/L (45-117); ANION GAP 12 MMOL/L (8-16); BILIRUBIN,TOTAL 0.6 mg/dL (0.2-1); BLOOD UREA NITROGEN 8 mg/dL (7-18); CALCIUM 8.5 mg/dL (8.5-10.1); CHLORIDE 111 mmol/L (98-107); CO2 19 mmol/L (21-32); CREATININE 0.6 mg/dL (0.55-1.3); GLUCOSE,RANDOM 95 mg/dL (74-106); POTASSIUM 4.4 mmol/L (3.5-5.1); SGOT/AST 23 U/L (15-37); SGPT/ALT 23 U/L (13-61); SODIUM 143 mmol/L (136-145); TOT PROT 7.6 g/dl (6.4-8.2)
[2018-03-01] MEDS ORDERED: FLU VACCINE QUAD 60 MCG/0.5 ML (MDV 18-19) IM ONE (12:00)
--- NOTE | 2018-03-01 13:50 | EKG ---
Test Reason : Blood Pressure : / mmHG Vent. Rate : 058 BPM Atrial Rate : 058 BPM P-R Int : 140 ms QRS Dur : 088 ms QT Int : 392 ms P-R-T Axes : 062 081 054 degrees QTc Int : 384 ms SINUS BRADYCARDIA OTHERWISE NORMAL ECG WHEN COMPARED WITH ECG OF 19-AUG-2017 19:12, INCOMPLETE RIGHT BUNDLE BRANCH BLOCK IS NO LONGER PRESENT Confirmed by MD Marisel, Chan ([id number]) on 03/01/2018 1:49:49 PM Referred By: Alyce Ramirez Confirmed By:Chan Joiner MD
[2018-03-01] MEDS ORDERED: QUEtiapine FUMARATE 50 MG TABLET PO SCH (22:00)
[2018-03-01] MEDS ORDERED: QUEtiapine FUMARATE 200 MG TABLET PO SCH (22:00)
[2018-03-01] MEDS: MELATONIN 5 MG TABLETS PO PRN (22:19)
[2018-03-01] MEDS: busPIRone HCL 10 MG TABLET (FP) PO SCH (22:19)
[2018-03-01] MEDS: DIVALPROEX NA *ER* EXTEND REL 250 MG TABLET.SA PO SCH (22:19)
[2018-03-01] MEDS: QUETIAPINE FUMARATE 200 MG, QUETIAPINE FUMARATE 50 MG PO SCH (22:21)
[2018-03-01] MEDS: THIAMINE HCL 100 MG TABLET (FP) PO SCH (22:39)
[2018-03-02] MEDS: diazePAM 5 MG TABLET PO PRN (08:31)
--- NOTE | 2018-03-02 09:40 | PN ---
BHS COWS - Scale Resting Pulse: 0= [place] 80 or Below Sweatin= Chills/Flushing Restless Observation: 1= Difficult to Sit Still Pupil Size: 1= Pupils >than Normal Bone or Joint Aches: 1= Mild Discomfort Runny Nose/ Eye Tearin= Nasal Congestion GI Upset > 30mins: 1= Stomach Cramp Tremor Observation of Outstretched Hands: 1= Tremor [place], Not Seen Yawning Observation: 1= 1-2x During Session Anxiety or Irritability: 1=Feels Anxious/Irritable Goose Flesh Skin: 0=Smooth Skin COWS Score: 9 BHS Progress Note (SOAP) Subjective: body aches joints pain restlessness sweat tremor Objective: 03/02/18 09:37 Vital Signs Temperature 98.2 F 03/02/18 05:55 Pulse Rate 68 03/02/18 05:55 Respiratory Rate 18 03/02/18 05:55 Blood Pressure 114/59 L 03/02/18 05:55 O2 Sat by Pulse Oximetry (%) Laboratory Last Values WBC 5.4 K/mm3 (4.0-10.0) 03/01/18 07:35 RBC 4.59 M/mm3 (3.60-5.2) 03/01/18 07:35 Hgb 12.8 GM/dL (10.7-15.3) 03/01/18 07:35 Hct 39.3 % (32.4-45.2) 03/01/18 07:35 MCV 85.6 fl (80-96) 03/01/18 07:35 MCH 27.8 pg (25.7-33.7) D 03/01/18 07:35 MCHC 32.5 g/dl (32.0-36.0) 03/01/18 07:35 RDW 14.6 % (11.6-15.6) 03/01/18 07:35 Plt Count 242 K/MM3 (134-434) D 03/01/18 07:35 MPV 8.0 fl (7.5-11.1) 03/01/18 07:35 Sodium 143 mmol/L (136-145) 03/01/18 07:35 Potassium 4.4 mmol/L (3.5-5.1) 03/01/18 07:35 Chloride 111 mmol/L (98-107) H 03/01/18 07:35 Carbon Dioxide 19 mmol/L (21-32) L 03/01/18 07:35 Anion Gap 12 MMOL/L (8-16) 03/01/18 07:35 BUN 8 mg/dL (7-18) 03/01/18 07:35 Creatinine 0.6 mg/dL (0.55-1.3) 03/01/18 07:35 Creat Clearance w eGFR > 60 (>60) 03/01/18 07:35 Random Glucose 95 mg/dL (74-106) 03/01/18 07:35 Calcium 8.5 mg/dL (8.5-10.1) 03/01/18 07:35 Total Bilirubin 0.6 mg/dL (0.2-1) 03/01/18 07:35 AST 23 U/L (15-37) 03/01/18 07:35 ALT 23 U/L (13-61) 03/01/18 07:35 Alkaline Phosphatase 93 U/L (45-117) 03/01/18 07:35 Total Protein 7.6 g/dl (6.4-8.2) 03/01/18 07:35 Albumin 3.5 g/dl (3.4-5.0) 03/01/18 07:35 Urine Color Yellow 02/28/18 13:07 Urine Appearance Clear 02/28/18 13:07 Urine pH 7.0 (5.0-8.0) 02/28/18 13:07 Ur Specific [place] 1.021 (1.010-1.035) 02/28/18 13:07 Urine Protein Negative (NEGATIVE) 02/28/18 13:07 Urine Glucose (UA) Negative (NEGATIVE) 02/28/18 13:07 Urine Ketones Negative (NEGATIVE) 02/28/18 13:07 Urine Blood Negative (NEGATIVE) 02/28/18 13:07 Urine Nitrite Negative (NEGATIVE) 02/28/18 13:07 Urine Bilirubin Negative (<2.0 mg/dL) 02/28/18 13:07 Urine Urobilinogen 4.0 e.u/dl mg/dL (0.2-1.0) H 02/28/18 13:07 Ur Leukocyte Esterase Negative (NEGATIVE) 02/28/18 13:07 RPR Titer Nonreactive (NONREACTIVE) 03/01/18 07:35 lab noted Assessment: 03/02/18 09:38 withdrawal sx left arm abscess continue keflex + warm compress Plan: continue detox health teaching on important of course of antibiotic and the benefits of compliance
[2018-03-02] MEDS ORDERED: METHADONE HCL 5 MG TABLET (FOR DETOX USE ONLY) PO ONE (10:00)
[2018-03-02] MEDS ORDERED: HYDROCORTISONE 1% TOPICAL CREAM 30 GM TUBE TP SCH (10:00)
[2018-03-02] MEDS: DIVALPROEX NA *ER* EXTEND REL 250 MG TABLET.SA PO SCH (10:16)
[2018-03-02] MEDS: busPIRone HCL 10 MG TABLET (FP) PO SCH ×2 (10:17→22:08)
[2018-03-02] MEDS: CEPHALEXIN MONOHYDRATE 500 MG CAPSULE (UD) PO SCH ×2 (10:17→22:09)
[2018-03-02] MEDS: PRENATAL VITAMINS W/ FOLIC ACID TABLET (FP) PO SCH (10:17)
[2018-03-02] MEDS: NICOTINE 21 MG/24 HOURS TOPICAL PATCH TD SCH (10:18)
[2018-03-02] MEDS: BUDESONIDE/FORMETEROL FUMARATE 160/4.5 mcg INHALER IH SCH ×2 (10:18→22:09)
[2018-03-02] MEDS ORDERED: QUEtiapine FUMARATE 50 MG TABLET ONE (21:53)
[2018-03-02] MEDS ORDERED: QUEtiapine FUMARATE 200 MG TABLET ONE (21:53)
[2018-03-02] MEDS: QUETIAPINE FUMARATE 200 MG, QUETIAPINE FUMARATE 50 MG PO SCH (22:08)
[2018-03-02] MEDS: DIVALPROEX *ER* 250 MG, DIVALPROEX *ER* 500 MG PO SCH (22:08)
[2018-03-02] MEDS: THIAMINE HCL 100 MG TABLET (FP) PO SCH (22:09)
[2018-03-02] MEDS: BACITRACIN 0.9 GM PACKET TP PRN (22:13)
[2018-03-02] MEDS: ALBUTEROL SO4 8 GM HFA INHALER IH PRN (22:13)
[2018-03-03] MEDS: diazePAM 5 MG TABLET PO PRN ×2 (00:44→10:45)
[2018-03-03] MEDS ORDERED: METHADONE HCL 5 MG TABLET (FOR DETOX USE ONLY) PO ONE (10:00)
[2018-03-03] MEDS: BUDESONIDE/FORMETEROL FUMARATE 160/4.5 mcg INHALER IH SCH ×2 (10:41→22:05)
[2018-03-03] MEDS: busPIRone HCL 10 MG TABLET (FP) PO SCH ×2 (10:41→22:07)
[2018-03-03] MEDS: DIVALPROEX *ER* 250 MG, DIVALPROEX *ER* 500 MG PO SCH ×2 (10:41→22:05)
[2018-03-03] MEDS: CEPHALEXIN MONOHYDRATE 500 MG CAPSULE (UD) PO SCH ×2 (10:41→22:05)
[2018-03-03] MEDS: PRENATAL VITAMINS W/ FOLIC ACID TABLET (FP) PO SCH (10:41)
[2018-03-03] MEDS: NICOTINE 21 MG/24 HOURS TOPICAL PATCH TD SCH (10:43)
[2018-03-03] MEDS: ALBUTEROL SO4 8 GM HFA INHALER IH PRN (10:45)
[2018-03-03] MEDS: BACITRACIN 0.9 GM PACKET TP PRN (10:46)
--- NOTE | 2018-03-03 11:21 | PN ---
[facility] Progress Note (SOAP) Subjective: body ache trouble sleep at night tremor sweat muscle cramping Objective: 03/03/18 11:20 Vital Signs Temperature 97.5 F L 03/03/18 09:23 Pulse Rate 82 03/03/18 09:23 Respiratory Rate 16 03/03/18 09:23 Blood Pressure 114/60 03/03/18 09:23 O2 Sat by Pulse Oximetry (%) Laboratory Last Values WBC 5.4 K/mm3 (4.0-10.0) 03/01/18 07:35 RBC 4.59 M/mm3 (3.60-5.2) 03/01/18 07:35 Hgb 12.8 GM/dL (10.7-15.3) 03/01/18 07:35 Hct 39.3 % (32.4-45.2) 03/01/18 07:35 MCV 85.6 fl (80-96) 03/01/18 07:35 MCH 27.8 pg (25.7-33.7) D 03/01/18 07:35 MCHC 32.5 g/dl (32.0-36.0) 03/01/18 07:35 RDW 14.6 % (11.6-15.6) 03/01/18 07:35 Plt Count 242 K/MM3 (134-434) D 03/01/18 07:35 MPV 8.0 fl (7.5-11.1) 03/01/18 07:35 Sodium 143 mmol/L (136-145) 03/01/18 07:35 Potassium 4.4 mmol/L (3.5-5.1) 03/01/18 07:35 Chloride 111 mmol/L (98-107) H 03/01/18 07:35 Carbon Dioxide 19 mmol/L (21-32) L 03/01/18 07:35 Anion Gap 12 MMOL/L (8-16) 03/01/18 07:35 BUN 8 mg/dL (7-18) 03/01/18 07:35 Creatinine 0.6 mg/dL (0.55-1.3) 03/01/18 07:35 Creat Clearance w eGFR > 60 (>60) 03/01/18 07:35 Random Glucose 95 mg/dL (74-106) 03/01/18 07:35 Calcium 8.5 mg/dL (8.5-10.1) 03/01/18 07:35 Total Bilirubin 0.6 mg/dL (0.2-1) 03/01/18 07:35 AST 23 U/L (15-37) 03/01/18 07:35 ALT 23 U/L (13-61) 03/01/18 07:35 Alkaline Phosphatase 93 U/L (45-117) 03/01/18 07:35 Total Protein 7.6 g/dl (6.4-8.2) 03/01/18 07:35 Albumin 3.5 g/dl (3.4-5.0) 03/01/18 07:35 Urine Color Yellow 02/28/18 13:07 Urine Appearance Clear 02/28/18 13:07 Urine pH 7.0 (5.0-8.0) 02/28/18 13:07 Ur Specific [place] 1.021 (1.010-1.035) 02/28/18 13:07 Urine Protein Negative (NEGATIVE) 02/28/18 13:07 Urine Glucose (UA) Negative (NEGATIVE) 02/28/18 13:07 Urine Ketones Negative (NEGATIVE) 02/28/18 13:07 Urine Blood Negative (NEGATIVE) 02/28/18 13:07 Urine Nitrite Negative (NEGATIVE) 02/28/18 13:07 Urine Bilirubin Negative (<2.0 mg/dL) 02/28/18 13:07 Urine Urobilinogen 4.0 e.u/dl mg/dL (0.2-1.0) H 02/28/18 13:07 Ur Leukocyte Esterase Negative (NEGATIVE) 02/28/18 13:07 Valproic Acid 46.4 ug/ml (50-100) L 03/02/18 10:25 RPR Titer Nonreactive (NONREACTIVE) 03/01/18 07:35 lab noted Assessment: 03/03/18 11:20 withdrawal sx Vital Signs Plan: continue detox
[2018-03-03] MEDS ORDERED: QUEtiapine FUMARATE 50 MG TABLET ONE (21:48)
[2018-03-03] MEDS ORDERED: QUEtiapine FUMARATE 200 MG TABLET ONE (21:48)
[2018-03-03] MEDS: THIAMINE HCL 100 MG TABLET (FP) PO SCH (22:05)
[2018-03-03] MEDS: QUETIAPINE FUMARATE 200 MG, QUETIAPINE FUMARATE 50 MG PO SCH (22:05)
--- NOTE | 2018-03-04 09:27 | PN ---
S Progress Note (SOAP) Subjective: feeling better no tremor no body ache no gi distress less sweat left arm abscess no swell no erythema none tender left arm full range of motion Objective: 03/04/18 09:26 Vital Signs Temperature 97.3 F L 03/04/18 09:23 Pulse Rate 105 H 03/04/18 09:23 Respiratory Rate 16 03/04/18 09:23 Blood Pressure 102/63 03/04/18 09:23 O2 Sat by Pulse Oximetry (%) Laboratory Last Values WBC 5.4 K/mm3 (4.0-10.0) 03/01/18 07:35 RBC 4.59 M/mm3 (3.60-5.2) 03/01/18 07:35 Hgb 12.8 GM/dL (10.7-15.3) 03/01/18 07:35 Hct 39.3 % (32.4-45.2) 03/01/18 07:35 MCV 85.6 fl (80-96) 03/01/18 07:35 MCH 27.8 pg (25.7-33.7) D 03/01/18 07:35 MCHC 32.5 g/dl (32.0-36.0) 03/01/18 07:35 RDW 14.6 % (11.6-15.6) 03/01/18 07:35 Plt Count 242 K/MM3 (134-434) D 03/01/18 07:35 MPV 8.0 fl (7.5-11.1) 03/01/18 07:35 Sodium 143 mmol/L (136-145) 03/01/18 07:35 Potassium 4.4 mmol/L (3.5-5.1) 03/01/18 07:35 Chloride 111 mmol/L (98-107) H 03/01/18 07:35 Carbon Dioxide 19 mmol/L (21-32) L 03/01/18 07:35 Anion Gap 12 MMOL/L (8-16) 03/01/18 07:35 BUN 8 mg/dL (7-18) 03/01/18 07:35 Creatinine 0.6 mg/dL (0.55-1.3) 03/01/18 07:35 Creat Clearance w eGFR > 60 (>60) 03/01/18 07:35 Random Glucose 95 mg/dL (74-106) 03/01/18 07:35 Calcium 8.5 mg/dL (8.5-10.1) 03/01/18 07:35 Total Bilirubin 0.6 mg/dL (0.2-1) 03/01/18 07:35 AST 23 U/L (15-37) 03/01/18 07:35 ALT 23 U/L (13-61) 03/01/18 07:35 Alkaline Phosphatase 93 U/L (45-117) 03/01/18 07:35 Total Protein 7.6 g/dl (6.4-8.2) 03/01/18 07:35 Albumin 3.5 g/dl (3.4-5.0) 03/01/18 07:35 Urine Color Yellow 02/28/18 13:07 Urine Appearance Clear 02/28/18 13:07 Urine pH 7.0 (5.0-8.0) 02/28/18 13:07 Ur Specific [place] 1.021 (1.010-1.035) 02/28/18 13:07 Urine Protein Negative (NEGATIVE) 02/28/18 13:07 Urine Glucose (UA) Negative (NEGATIVE) 02/28/18 13:07 Urine Ketones Negative (NEGATIVE) 02/28/18 13:07 Urine Blood Negative (NEGATIVE) 02/28/18 13:07 Urine Nitrite Negative (NEGATIVE) 02/28/18 13:07 Urine Bilirubin Negative (<2.0 mg/dL) 02/28/18 13:07 Urine Urobilinogen 4.0 e.u/dl mg/dL (0.2-1.0) H 02/28/18 13:07 Ur Leukocyte Esterase Negative (NEGATIVE) 02/28/18 13:07 Valproic Acid 46.4 ug/ml (50-100) L 03/02/18 10:25 RPR Titer Nonreactive (NONREACTIVE) 03/01/18 07:35 lab noted patient is taking depakote for bipolar disorder, none compliance with medication currently psychiatrist placed on 03/04/18 09:27 750 mg patient agrees to adherence with depakote and follow up with primary care psychiatrist in the community Assessment: 03/04/18 09:28 mild withdrawal sx Plan: medically supervised detox
[2018-03-04] MEDS ORDERED: METHADONE HCL 10 MG TABLET (FOR DETOX USE ONLY) PO ONE (10:00)
[2018-03-04] MEDS: BUDESONIDE/FORMETEROL FUMARATE 160/4.5 mcg INHALER IH SCH ×2 (10:03→22:22)
[2018-03-04] MEDS: DIVALPROEX *ER* 250 MG, DIVALPROEX *ER* 500 MG PO SCH ×2 (10:03→22:21)
[2018-03-04] MEDS: busPIRone HCL 10 MG TABLET (FP) PO SCH ×2 (10:04→22:22)
[2018-03-04] MEDS: ALBUTEROL SO4 8 GM HFA INHALER IH PRN (10:04)
[2018-03-04] MEDS: CEPHALEXIN MONOHYDRATE 500 MG CAPSULE (UD) PO SCH ×2 (10:04→22:21)
[2018-03-04] MEDS: PRENATAL VITAMINS W/ FOLIC ACID TABLET (FP) PO SCH (10:04)
[2018-03-04] MEDS: NICOTINE 21 MG/24 HOURS TOPICAL PATCH TD SCH (10:05)
[2018-03-04] MEDS: BACITRACIN 0.9 GM PACKET TP PRN ×2 (10:07→17:35)
[2018-03-04] MEDS ORDERED: QUEtiapine FUMARATE 50 MG TABLET ONE (21:26)
[2018-03-04] MEDS ORDERED: QUEtiapine FUMARATE 200 MG TABLET ONE (21:26)
[2018-03-04] MEDS: QUETIAPINE FUMARATE 200 MG, QUETIAPINE FUMARATE 50 MG PO SCH (22:21)
[2018-03-04] MEDS: THIAMINE HCL 100 MG TABLET (FP) PO SCH (22:22)
[2018-03-04] MEDS: MELATONIN 5 MG TABLETS PO PRN (22:23)
[2018-03-05] MEDS ORDERED: METHADONE HCL 5 MG TABLET (FOR DETOX USE ONLY) PO ONE (06:00)
[2018-03-05 06:23] VITALS: BP 113/64; PULSE 87; TEMP 96.8
--- NOTE | 2018-03-05 08:42 | DS ---
[facility] Detox Discharge Summary Admission Date: 02/28/18 Discharge Date: 03/05/18 - History Present History: Opioid Dependence Additional Comments: 37 years old female admitted on 02/28/18 for opiate withdrawal sx completed opiate detox regimen tolerated well denies opiate withdrawal sx alert oriented x 3 no acute distress aftercare [facility] / [facility] outpatient - Physical Exam Results Vital Signs: Vital Signs Temperature 96.8 F L 03/05/18 06:22 Pulse Rate 87 03/05/18 06:22 Respiratory Rate 18 03/05/18 06:22 Blood Pressure 113/64 03/05/18 06:22 O2 Sat by Pulse Oximetry (%) Pertinent Admission Physical Exam Findings: opiate withdrawal sx Vital Signs Temperature 96.8 F L 03/05/18 06:22 Pulse Rate 87 03/05/18 06:22 Respiratory Rate 18 03/05/18 06:22 Blood Pressure 113/64 03/05/18 06:22 O2 Sat by Pulse Oximetry (%) Laboratory Last Values WBC 5.4 K/mm3 (4.0-10.0) 03/01/18 07:35 RBC 4.59 M/mm3 (3.60-5.2) 03/01/18 07:35 Hgb 12.8 GM/dL (10.7-15.3) 03/01/18 07:35 Hct 39.3 % (32.4-45.2) 03/01/18 07:35 MCV 85.6 fl (80-96) 03/01/18 07:35 MCH 27.8 pg (25.7-33.7) D 03/01/18 07:35 MCHC 32.5 g/dl (32.0-36.0) 03/01/18 07:35 RDW 14.6 % (11.6-15.6) 03/01/18 07:35 Plt Count 242 K/MM3 (134-434) D 03/01/18 07:35 MPV 8.0 fl (7.5-11.1) 03/01/18 07:35 Sodium 143 mmol/L (136-145) 03/01/18 07:35 Potassium 4.4 mmol/L (3.5-5.1) 03/01/18 07:35 Chloride 111 mmol/L (98-107) H 03/01/18 07:35 Carbon Dioxide 19 mmol/L (21-32) L 03/01/18 07:35 Anion Gap 12 MMOL/L (8-16) 03/01/18 07:35 BUN 8 mg/dL (7-18) 03/01/18 07:35 Creatinine 0.6 mg/dL (0.55-1.3) 03/01/18 07:35 Creat Clearance w eGFR > 60 (>60) 03/01/18 07:35 Random Glucose 95 mg/dL (74-106) 03/01/18 07:35 Calcium 8.5 mg/dL (8.5-10.1) 03/01/18 07:35 Total Bilirubin 0.6 mg/dL (0.2-1) 03/01/18 07:35 AST 23 U/L (15-37) 03/01/18 07:35 ALT 23 U/L (13-61) 03/01/18 07:35 Alkaline Phosphatase 93 U/L (45-117) 03/01/18 07:35 Total Protein 7.6 g/dl (6.4-8.2) 03/01/18 07:35 Albumin 3.5 g/dl (3.4-5.0) 03/01/18 07:35 Urine Color Yellow 02/28/18 13:07 Urine Appearance Clear 02/28/18 13:07 Urine pH 7.0 (5.0-8.0) 02/28/18 13:07 Ur Specific [place] 1.021 (1.010-1.035) 02/28/18 13:07 Urine Protein Negative (NEGATIVE) 02/28/18 13:07 Urine Glucose (UA) Negative (NEGATIVE) 02/28/18 13:07 Urine Ketones Negative (NEGATIVE) 02/28/18 13:07 Urine Blood Negative (NEGATIVE) 02/28/18 13:07 Urine Nitrite Negative (NEGATIVE) 02/28/18 13:07 Urine Bilirubin Negative (<2.0 mg/dL) 02/28/18 13:07 Urine Urobilinogen 4.0 e.u/dl mg/dL (0.2-1.0) H 02/28/18 13:07 Ur Leukocyte Esterase Negative (NEGATIVE) 02/28/18 13:07 Valproic Acid 46.4 ug/ml (50-100) L 03/02/18 10:25 RPR Titer Nonreactive (NONREACTIVE) 03/01/18 07:35 lab noted health teaching on risks of IV heroin and harm reduction program - Treatment Hospital Course: Detox Protocol Followed, Detoxed Safely, Responded well, Discharged Condition Good, Rehab Referral Accepted Patient has Accepted a Re[facility] Referral [facility]: [facility] - Medication Discharge Medications: Ambulatory Orders Divalproex [Depakote -] 750 mg PO BID 08/19/17 Quetiapine Fumarate [Seroquel -] 250 mg PO HS 08/19/17 Albuterol Sulfate Inhaler - [Ventolin HFA Inhaler -] 2 inh PO Q4H PRN #1 inhaler 03/04/18 Budesonide/Formeterol Fumarate [SYMBICORT 160/4.5mcg -] 1 inh PO BID #1 inhaler 03/04/18 Buspirone HCl [Buspar -] 10 mg PO BID #60 tablet 03/05/18 Cephalexin Monohydrate [Keflex -] 500 mg PO BID #10 capsule 03/05/18 Divalproex *ER* [Depakote *ER* -] 750 mg PO BID #60 tablet.sa 03/05/18 Quetiapine Fumarate [Seroquel -] 250 mg PO HS #30 tablet 03/05/18 - Diagnosis (1) Nicotine dependence Current Visit: Yes Status: Acute Qualifiers: Nicotine product type: cigarettes Substance use status: in withdrawal Qualified Code(s): F17.213 - Nicotine dependence, cigarettes, with withdrawal (2) Opioid dependence with withdrawal Current Visit: Yes Status: Acute (3) Drug-induced mood disorder Current Visit: Yes Status: Suspected (4) Bipolar disorder Current Visit: Yes Status: Suspected Qualifiers: Active/Remission status: in partial remission Most recent bipolar episode type: mixed Qualified Code(s): F31.77 - Bipolar disorder, in partial remission , most recent episode mixed - AMA Did Patient Leave Against Medical Advice: No
[2018-03-05] MEDS: CEPHALEXIN MONOHYDRATE 500 MG CAPSULE (UD) PO SCH (09:14)
[2018-03-05] MEDS: busPIRone HCL 10 MG TABLET (FP) PO SCH (09:14)
[2018-03-05] MEDS: DIVALPROEX *ER* 250 MG, DIVALPROEX *ER* 500 MG PO SCH (09:14)
[2018-03-05] MEDS: ALBUTEROL SO4 8 GM HFA INHALER IH PRN (09:16)
[2018-03-05] MEDS: BUDESONIDE/FORMETEROL FUMARATE 160/4.5 mcg INHALER IH SCH (09:16)
--- NOTE | 2018-03-05 10:28 | PN ---
Psychiatric Progress Note Vital Signs: Vital Signs Period Temp Pulse Resp BP Sys/Romero Pulse Ox Last 24 Hr 96.8 F-99.1 F 82-99 16-18 98-126/63-85 Date of Session: 03/05/18 Chief Complaint:: My medication HPI: Patient reports her medications not been sent to Pharmacy. She has been on : Depakote 750 mg po bid. Buspar 10mg po bid. Seroquelo 250mg po qhs Current Medications: Active Medications Generic Name Dose Route Start Last Admin Trade Name Freq PRN Reason Stop Dose Admin Acetaminophen 650 mg 02/28/18 12:25 Tylenol - PO Q4H PRN FEVER Al Hydroxide/Mg Hydroxide 30 ml 02/28/18 12:25 Mylanta Oral Suspension - PO Q6H PRN DYSPEPSIA Albuterol Sulfate 2 puff 02/28/18 12:27 03/05/18 09:16 Ventolin Hfa Inhaler - IH 2 inhaler Q4H PRN Administration ASTHMA Albuterol/Ipratropium 1 amp 02/28/18 12:39 Duoneb - NEB Q4H PRN SHORTNESS OF BREATH Bacitracin 0.9 gm 03/02/18 12:20 03/04/18 17:35 Bacitracin - TP 0.9 gm TID PRN Administration DRY SKIN Budesonide/Formoterol Fumarate 1 puff 02/28/18 13:30 03/05/18 09:16 Symbicort 160/4.5mcg - IH 1 puff BID DENTON Administration Buspirone HCl 10 mg 03/01/18 22:00 03/05/18 09:14 Buspar - PO 10 mg BID DENTON Administration Cephalexin HCl 500 mg 02/28/18 13:30 03/05/18 09:14 Keflex - PO 500 mg BID DENTON Administration Divalproex Sodium 250 mg/ 750 mg 03/02/18 22:00 03/05/18 09:14 Divalproex Sodium 500 mg PO 750 mg BID DENTON Administration Eucalyptus/Menthol/Phenol/Sorbitol 1 each 02/28/18 12:25 Cepastat Lozenge - MM Q4H PRN SORE THROAT Guaifenesin 10 ml 02/28/18 12:25 Robitussin Dm - PO Q6H PRN COUGH Ibuprofen 400 mg 02/28/18 12:25 Motrin - PO Q6H PRN PAIN LEVEL 4-6 Loperamide HCl 4 mg 02/28/18 12:25 Imodium - PO Q6H PRN DIARRHEA Magnesium Citrate 300 ml 02/28/18 12:25 Citroma - PO Q48H PRN CONSTIPATION Magnesium Hydroxide 30 ml 02/28/18 12:25 Milk Of Magnesia - PO DAILY PRN CONSTIPATION Melatonin 5 mg 02/28/18 22:00 03/04/18 22:23 Melatonin PO 5 mg HS PRN Administration INSOMNIA Nicotine 21 mg 02/28/18 13:30 03/04/18 10:05 Nicoderm Patch - TD 21 mg DAILY DENTON Administration Multivit/Folic Acid/Iron 1 tab 03/01/18 10:00 03/04/18 10:04 Vitamins (Sjr) - PO 1 tab DAILY DENTON Administration Quetiapine Fumarate 200 mg/ 250 mg 03/01/18 22:00 03/04/18 22:21 Quetiapine Fumarate 50 mg PO 250 mg HS DENTON Administration Thiamine HCl 100 mg 02/28/18 22:00 03/04/18 22:22 Vitamin B1 - PO 100 mg HS DENTON Administration Medication(s) Change(s): none Provider note:: Medications orders were sent to Pharmacy: Depakote 750 mg po bid #60. Buspar 10mg po bid #60. Seroquelo 250mg po qhs #30 Mental Status Exam - Mental Status Exam Alert and Oriented to: Person Cognitive Function: Fair Patient Appearance: Well Groomed Mood: Euthymic Affect: Normal Range Patient Behavior: Cooperative Speech Pattern: Appropriate Voice Loudness: Normal Thought Process: Goal Oriented Thought Disorder: Being Controlled Hallucinations: Denies Suicidal Ideation: Denies Homicidal Ideation: Denies Insight/Judgement: Fair Sleep: Difficulty falling asleep Appetite: Good Muscle strength/Tone: Normal Gait/Station: Normal Additional Comments: Depakote 750 mg po bid #60. Buspar 10mg po bid #60. Seroquelo 250mg po qhs #30 Psychiatric Treatment Plan - Problem List (1) Abscess of arm, left Current Visit: Yes (2) Asthma Current Visit: Yes Qualifiers: Asthma severity: moderate Asthma persistence: persistent Asthma complication type: with status asthmaticus Qualified Code(s): J45.42 - Moderate persistent asthma with status asthmaticus (3) Cannabis dependence Current Visit: Yes (4) Herniated lumbar intervertebral disc Current Visit: Yes (5) Nicotine dependence Current Visit: Yes Qualifiers: Nicotine product type: cigarettes Substance use status: uncomplicated Qualified Code(s): F17.210 - Nicotine dependence, cigarettes, uncomplicated (6) Opioid dependence with withdrawal Current Visit: Yes (7) Alcohol dependence with uncomplicated withdrawal Current Visit: No (8) Drug-induced mood disorder Current Visit: No (9) Use of cane as ambulatory aid Current Visit: No (10) Bipolar disorder Current Visit: No Qualifiers: Active/Remission status: in partial remission Most recent bipolar episode type: mixed Qualified Code(s): F31.77 - Bipolar disorder, in partial remission , most recent episode mixed Initial treatment plan: Medications orders were sent to Pharmacy: Depakote 750 mg po bid #60. Buspar 10mg po bid #60. Seroquelo 250mg po qhs #30
== END 2018-03-05 09:24 | disposition home or self-care (01) | DRG 897 ==
LOC: YASAS 11:24 → Y6N 12:47
PROC: HZ2ZZZZ Detoxification Services for Substance Abuse Treatment (ICD-10-PCS; principal; 2018-02-28)
DX: F11.23 Opioid dependence with withdrawal (principal); L02.414 Cutaneous abscess of left upper limb; J45.42 Moderate persistent asthma with status asthmaticus; F12.20 Cannabis dependence, uncomplicated; F17.210 Nicotine dependence, cigarettes, uncomplicated; F19.24 Other psychoactive substance dependence with psychoactive substance-induced mood disorder; F31.77 Bipolar disorder, in partial remission, most recent episode mixed; M51.26 Other intervertebral disc displacement, lumbar region; R26.2 Difficulty in walking, not elsewhere classified; Z99.89 Dependence on other enabling machines and devices; Z91.5 Personal history of self-harm; Z59.0 Homelessness
CPT/HCPCS: 36415; 80053; 80164; 81003; 85027; 86593; 90688; 93005; 93010; G0008

== ENCOUNTER 2018-06-30 13:36 | Inpatient (IN) | payer OTHER ==
[2018-06-30 14:39] VITALS: BMI 25.7
--- NOTE | 2018-06-30 15:11 | HP ---
COWS - Scale Resting Pulse: 0= OR 80 or Below Sweatin= Chills/Flushing Restless Observation: 1= Difficult to Sit Still Pupil Size: 0= Normal to Room Light Bone or Joint Aches: 2= Severe Diffuse Aches Runny Nose/ Eye Tearin= None GI Upset > 30mins: 2= Nausea/Diarrhea Tremor Observation: 2= Slight Tremor Visible Yawning Observation: 1= 1-2x During Session Anxiety or Irritability: 2=Irritable/Anxious Goose Flesh Skin: 0=Smooth Skin COWS Score: 11 CIWA Score - Admission Criteria [facility]ASAS Guidelines: Admission for Medically Managed Detox: Requires at least one of the followin. CIWA greater than 12 2. Seizures within the past 24 hours 3. Delirium tremens within the past 24 hours 4. Hallucinations within the past 24 hours 5. Acute intervention needed for co occurring medical disorder 6. Acute intervention needed for co occurring psychiatric disorder 7. Severe withdrawal that cannot be handled at a lower level of care (continued vomiting, continued diarrhea, abnormal vital signs) requiring intravenous medication and/or fluids 8. Admission ROS [facility] - [facility] Chief Complaint: "I Want to Stop." Patient is here for Detox From Heroin. Allergies/Adverse Reactions: Allergies Allergy/AdvReac Type Severity Reaction Status Date / Time diphenhydramine HCl Allergy Severe Swelling Verified 06/30/18 15:20 [From Benadryl] sulfamethoxazole Allergy Severe Swelling Verified 06/30/18 15:20 [From Bactrim] History of Present Illness: Patient is a 37 YO Female here for detox from Heroin. Patient has had several previous Detox Admissions at [facility] (Last: 02/2019, Completed). Patient denies any other Recent Detox / Rehab Admissions at Any Other Facilities. Patient reports History of Asthma and Chronic Bronchitis and that She was admitted to [facility] [place] ([place], [place]) for approx. 5 days approx. 1 month ago for Acute Exacerbation. [facility] I-Stop Patient Search: Multi-Patient Search Reports Drug Listing Designation My MONIKA Numbers Data Detail Level: Printer-Friendly View Confidential Drug Utilization Report Search Terms: Lorenzo Post, 1980 Search Date: 06/30/2018 03:10:28 PM The Drug Utilization Report below displays all of the controlled substance prescriptions, if any, that your patient has filled in the last twelve months. The information displayed on this report is compiled from pharmacy submissions to the Department, and accurately reflects the information as submitted by the pharmacies. This report was requested by: Stone Guthrie | Reference #: [id number] There are no results for the search terms that you entered. Exam Limitations: No Limitations - Ebola screening Have you traveled outside of the country in the last 21 days: No Have you had contact with anyone from an Ebola affected area: No Have you been sick,other than usual withdrawal symptoms: No Do you have a fever: No - Review of Systems Constitutional: Chills, Diaphoresis, Fever, Loss of Appetite, Malaise, Night Sweats, Changes in sleep EENT: reports: Blurred Vision Respiratory: reports: SOB with Exertion, Productive cough Cardiac: reports: No Symptoms Reported GI: reports: Poor Appetite : reports: No Symptoms Reported Musculoskeletal: reports: Back Pain, Muscle Pain Integumentary: reports: No Symptoms Reported Neuro: reports: Tremors Endocrine: reports: No Symptoms Reported Hematology: reports: No Symptoms Reported Psychiatric: reports: Judgement Intact, Mood/Affect Appropiate, Orientated x3, Anxious, Depressed (Takes Medication.) Other Systems: Reviewed and Negative Patient History - Patient Medical History Hx Anemia: No Hx Asthma: Yes (Pt. is on SYMBICORT and MDI (PRN).) Hx Chronic Obstructive Pulmonary Disease (COPD): No (Needs To Be Tested, Has Frequent Bronchial Infections.) Hx Cancer: No Hx Cardiac Disorders: No Hx Congestive Heart Failure: No Hx Hypertension: No Hx Hypercholesterolemia: No Hx Pacemaker: No HX Cerebrovascular Accident: No Hx Seizures: No Hx Dementia: No Hx Diabetes: No Hx Gastrointestinal Disorders: No Hx Liver Disease: No Hx Genitourinary Disorders: No Hx Sexually Transmitted Disorders: No Hx Renal Disease (ESRD): No Hx Thyroid Disease: No Hx Human Immunodeficiency Virus (HIV): No (NEGATIVE HX, last tested in 08/2017: NEGATIVE.) Hx Hepatitis C: No (LAST TESTED IN 05/2016: NEGATIVE.) Hx Depression: Yes (Hospitalized two years ago ([facility], [place] Hx Suicide Attempt: Yes (tried to slit wrist APPROX. 4 yearS ago; PATIENT DENIES SI / HI.) Hx Bipolar Disorder: Yes (Takes Medication.) Hx Schizophrenia: No Other Medical History: Anxiety, 7 Herniated Discs in Cervical and Lumbar Areas. - Patient Surgical History Past Surgical History: Yes Hx Neurologic Surgery: No Hx Cataract Extraction: No Hx Cardiac Surgery: No Hx Lung Surgery: No Hx Breast Surgery: No Hx Breast Biopsy: No Hx Abdominal Surgery: Yes (tubal ligation 2001) Hx Appendectomy: No Hx Cholecystectomy: No Hx Genitourinary Surgery: No Hx Section: No Hx Orthopedic Surgery: No Hx Hysterectomy: No Other Surgical History: Tubal ligation in 2001. Anesthesia Reaction: No - PPD History Previous Implant?: Yes Documented Results: Negative w/proof Implanted On Prior [facility] Admission?: Yes Date: 08/21/17 Results: NEGATIVE PPD to be Administered?: No - Reproductive History Patient is a Female of Child Bearing Age (11 -55 yrs old): Yes Last Menstrual Period: 06/01/18 Patient : No (Tubal Ligation: 2001.) - Smoking Cessation Smoking history: Current every day smoker Have you smoked in the past 12 months: Yes Aproximately how many cigarettes per day: 20 Cigars Per Day: 0 Hx Chewing Tobacco Use: No Initiated information on smoking cessation: Yes 'Breaking Loose' booklet given: 06/30/18 (GIVEN ON UNIT.) - Substance & Tx. History Hx Alcohol Use: No Hx Substance Use: Yes Substance Use Type: Heroin, Marijuana Hx Substance Use Treatment: Yes (Previous Detox Admissions at [facility] (Last: 2017).) - Substances Abused Heroin Route: Injection Frequency: Daily Amount used: 20 - 25 Bags. Age of first use: 28 Date of Last Use: 06/30/18 Marijuana/Hashish Route: Smoking Frequency: Daily Amount used: 1 - 2 Blunts. Age of first use: 10 Date of Last Use: 06/30/18 Family Disease History - Family Disease History Family Disease History: Other: Father (no contact, grew up in foster care), Mother (no contact, grew up in foster care), Brother (two - no contact), Sister (three - no contact), Son (one age 16 - healthy), Daughter (one age 20 - healthy ) Admission Physical Exam [facility] - Vital Signs Vital Signs: Vital Signs - 24 hr 06/30/18 14:37 Temperature 97.8 F Pulse Rate 65 Respiratory 18 Rate Blood Pressure 92/53 L - Physical General Appearance: Yes: No Apparent Distress, Nourished, Appropriately Dressed , Mild Distress, Tremorous, Anxious HEENTM: Yes: Hearing grossly Normal, Normocephalic, Normal Voice, BARB, Pharynx Normal Respiratory: Yes: Chest Non-Tender, No Respiratory Distress, No Accessory Muscle Use, Wheezing Neck: Yes: No masses,lesions,Nodules, Supple, Trachea in good position Breast: Yes: Breast Exam Deferred Cardiology: Yes: Regular Rhythm, Regular Rate, S1, S2 Abdominal: Yes: Normal Bowel Sounds, Non Tender, Flat, Soft Genitourinary: Yes: Within Normal Limits Back: Yes: Decreased Range of Motion Musculoskeletal: Yes: Gait Steady Extremities: Yes: Normal Capillary Refill, Normal Range of Motion, Non-Tender, Tremors Neurological: Yes: Fully Oriented, Alert, Normal Mood/Affect, Normal Response Integumentary: Yes: Normal Color, Dry, Warm, Track Howard (Noted on Bialteral Forearms. Slight Erythema and Swelling noted. No Unusual discharge Noted. Patient Denies Pain at Affected Sites. Topical Bacitracin Ordered as Treatment for time Being. Will continue To Monitor.) Lymphatic: Yes: Within Normal Limits - Diagnostic (1) History of bipolar disorder Current Visit: Yes Status: Chronic (2) History of depression Current Visit: Yes Status: Chronic (3) Anxiety Current Visit: Yes Status: Chronic (4) IVDU (intravenous drug user) Current Visit: Yes Status: Acute (5) Nicotine dependence Current Visit: Yes Status: Chronic Qualifiers: Nicotine product type: cigarettes Substance use status: uncomplicated Qualified Code(s): F17.210 - Nicotine dependence, cigarettes, uncomplicated (6) Opioid dependence with withdrawal Current Visit: Yes Status: Acute (7) Asthma Current Visit: Yes Status: Chronic Qualifiers: Asthma severity: moderate Asthma persistence: persistent Asthma complication type: uncomplicated Qualified Code(s): J45.40 - Moderate persistent asthma, uncomplicated (8) Cannabis dependence Current Visit: Yes Status: Chronic (9) Herniated lumbar intervertebral disc Current Visit: Yes Status: Chronic (10) Herniated cervical intervertebral disc Current Visit: Yes Status: Chronic Cleared for Admission [facility] - Detox or Rehab [facility] Level of Care: Medically Managed Detox Regimen/Protocol: Methadone [facility] Breath Alcohol Content Breath Alcohol Content: 0 Urine Pregancy Test - Result Urine Test Results: Negative- NO Line Present Urine Drug Screen - Results Drug Screen Negative: No Urine Drug Screen Results: THC-Marijuana, EYAD-Cocaine, OPI-Opiates, FEN-Fentanyl Inpatient Rehab Admission - Rehab Decision to Admit Inpatient rehab admission?: No
[2018-06-30] MEDS ORDERED: P-EPHED 60MG/TRIPROLIDI 2.5MG TABLET PO PRN (16:15)
[2018-06-30] MEDS ORDERED: NICOTINE POLACRILEX 2 MG GUM BC PRN (16:15)
[2018-06-30] MEDS ORDERED: guaiFENesin/D-METHORPHAN HB 10 ML UNIT-DOSE CUPS PO PRN (16:15)
[2018-06-30] MEDS ORDERED: MENTHOL/PHENOL 1 EACH UD MM PRN (16:15)
[2018-06-30] MEDS ORDERED: MAGNESIUM CITRATE 300 ML BOTTLE PO PRN (16:15)
[2018-06-30] MEDS ORDERED: ACETAMINOPHEN 325 MG TABLET (FP) PO PRN (16:15)
[2018-06-30] MEDS ORDERED: LOPERAMIDE HCL 2 MG CAPSULE PO PRN (16:15)
[2018-06-30] MEDS ORDERED: MAG HYDROX/AL HYDROX/SIMETH 30 ML UNIT-DOSE CUP PO PRN (16:15)
[2018-06-30] MEDS ORDERED: IBUPROFEN 400 MG TABLET (FP) PO PRN (16:15)
[2018-06-30] MEDS ORDERED: MAGNESIUM HYDROX 2400MG/30ML ORAL SUSPENSION 30 ML CUP PO PRN (16:15)
[2018-06-30] MEDS ORDERED: ALBUTEROL SO4 8 GM HFA INHALER IH PRN (16:21)
[2018-06-30] MEDS ORDERED: ALBUTEROL SO4 2.5/IPRATROPIUM 0.5 INH SOL 3 ML VIAL.NEB. NEB PRN (16:22)
[2018-06-30] MEDS ORDERED: ONDANSETRON *ODT* 4 MG TABLET SL PRN (16:23)
[2018-06-30] MEDS ORDERED: METHADONE HCL 10 MG TABLET (FOR DETOX USE ONLY) PO ONE ×2 (19:00→23:00)
[2018-06-30] MEDS: diazePAM 5 MG TABLET PO PRN (20:50)
[2018-06-30] MEDS: NICOTINE 21 MG/24 HOURS TOPICAL PATCH TD SCH (20:50)
[2018-06-30] MEDS: BUDESONIDE/FORMETEROL FUMARATE 160/4.5 mcg INHALER IH SCH (23:12)
[2018-06-30] MEDS: BACITRACIN 0.9 GM PACKET TP SCH (23:12)
[2018-06-30] MEDS: THIAMINE HCL 100 MG TABLET (FP) PO SCH (23:12)
[2018-06-30] MEDS: MELATONIN 5 MG TABLETS PO PRN (23:13)
[2018-06-30] MEDS: CYCLOBENZAPRINE HCL 10 MG TABLET (FP) PO PRN (23:14)
[2018-07-01] MEDS: diazePAM 5 MG TABLET PO PRN ×4 (03:35→19:37)
[2018-07-01] MEDS ORDERED: METHADONE HCL 10 MG TABLET (FOR DETOX USE ONLY) PO ONE (10:00)
--- NOTE | 2018-07-01 10:00 | EKG ---
Test Reason : Blood Pressure : / mmHG Vent. Rate : 063 BPM Atrial Rate : 063 BPM P-R Int : 152 ms QRS Dur : 094 ms QT Int : 386 ms P-R-T Axes : 070 091 050 degrees QTc Int : 395 ms NORMAL SINUS RHYTHM WITH SINUS ARRHYTHMIA RIGHTWARD AXIS INCOMPLETE RIGHT BUNDLE BRANCH BLOCK BORDERLINE ECG WHEN COMPARED WITH ECG OF 28-FEB-2018 13:01, INCOMPLETE RIGHT BUNDLE BRANCH BLOCK IS NOW PRESENT Confirmed by MILENA DEGROOT, MELANI ([id number]) on 07/01/2018 10:00:08 AM Referred By: Confirmed By:MELANI ABBOTT MD
[2018-07-01] MEDS: PRENATAL VITAMINS W/ FOLIC ACID TABLET (FP) PO SCH (10:09)
[2018-07-01] MEDS: NICOTINE 21 MG/24 HOURS TOPICAL PATCH TD SCH (10:09)
[2018-07-01] MEDS: BACITRACIN 0.9 GM PACKET TP SCH ×2 (10:09→22:11)
[2018-07-01] MEDS: BUDESONIDE/FORMETEROL FUMARATE 160/4.5 mcg INHALER IH SCH ×2 (10:09→22:11)
--- NOTE | 2018-07-01 12:36 | CONSULT ---
[facility] Psychiatric Consult - Data Date of interview: 07/01/18 Admission source: [facility] Identifying data: Readmission to [facility] for this 37 y/o female self -referred for detoxfication treatment (alcohol, heroin, cannabis). Evaluated at [address] [place] [address]. Patient is , a mother of two, domiciled, unemployd and supported on SSD benefits. Substance Abuse History: Confirmed by the patient in this session. Details in current [facility] report : Smoking history: Current every day smoker. Have you smoked in the past 12 months: Yes. Aproximately how many cigarettes per day: 20. Cigars Per Day: 0. Hx Chewing Tobacco Use: No. Initiated information on smoking cessation: Yes. 'Breaking Loose' booklet given: 06/30/18 (GIVEN ON UNIT.). - Substance & Tx. History. Hx Alcohol Use: No. Hx Substance Use: Yes. Substance Use Type: Heroin, Marijuana. Hx Substance Use Treatment: Yes ( Previous Detox Admissions at [facility] (Last: 02/2018).). - Substances Abused. Heroin. Route: Injection. Frequency: Daily. Amount used: 20 - 25 Bags. Age of first use: 28. Date of Last Use: 06/30/18. Marijuana/Hashish. Route: Smoking. Frequency: Daily. Amount used: 1 - 2 Blunts. Age of first use: 10 Medical History: Remarkable for bronchial asthma and a distant history of tubal ligation (2001). Psychiatric History: Patient endorses a history of " a few " psychiatric hospitalizations for bipolar disorder. Was admitted to [facility] about three years ago for a suicide attempt via self-mutilation ( wrist-cutting). Ms Ventura is currently followed at [facility] in [facility]. Prescribed a regimen of seroquel 250 mg/hs + depakote 750 mg po bid + buspar 10 mg po bid. Patient declares that she has taken these medications prior to this [facility] visit. Physical/Sexual Abuse/Trauma History: Not discussed. Patient declines. Additional Comment: Urine Drug Screen Results: THC-Marijuana, EYAD-Cocaine, OPI- Opiates, FEN-Fentanyl. Noted. Mental Status Exam - Mental Status Exam Alert and Oriented to: Time, Place, Person Cognitive Function: Good Patient Appearance: Well Groomed Mood: Nervous, Withdrawn, Anxious Affect: Mood Congruent, Constricted Patient Behavior: Fatigued, Appropriate (well-mannered), Cooperative Speech Pattern: Clear, Appropriate Voice Loudness: Normal Thought Process: Intact, Goal Oriented Thought Disorder: Not Present Hallucinations: Denies Suicidal Ideation: Denies Homicidal Ideation: Denies Insight/Judgement: Poor Sleep: Poorly, Difficulty falling asleep Appetite: Good Muscle strength/Tone: Normal Gait/Station: Normal Psychiatric Findings - Problem List (Russell 1, 2,3) (1) Alcohol dependence with uncomplicated withdrawal Current Visit: Yes Status: Acute (2) Opioid dependence with withdrawal Current Visit: Yes Status: Acute (3) Cannabis dependence Current Visit: Yes Status: Chronic (4) Nicotine dependence Current Visit: Yes Status: Chronic Qualifiers: Nicotine product type: cigarettes Substance use status: uncomplicated Qualified Code(s): F17.210 - Nicotine dependence, cigarettes, uncomplicated (5) Drug-induced mood disorder Current Visit: Yes Status: Chronic (6) History of bipolar disorder Current Visit: Yes Status: Chronic (7) Insomnia Current Visit: Yes Status: Chronic - Initial Treatment Plan Initial Treatment Plan: Records revisited. Psychoeducation. Support. Detoxification. In view of current trend of hypotension, will hold seroquel and depakote tonight (BP = 93/55). Falls precautions. Monitor vitals. Valproic acid level in AM. Psychiatrist on-call (this creative writer) will enter orders for depakote + seroquel on 07/02/18 if BP is back to acceptable parameters. Rehydration. Reassurance. AA/NA meetings. Groups. Motivational sessions. Side effects/ benefits of seroquel + depakote were reviewed with the patient. Ms Ventura is in agreement with this plan of care. Observation.
[2018-07-01 12:44] LABS: HEMATOCRIT 38.3 % (32.4-45.2); HEMOGLOBIN 13.1 GM/dL (10.7-15.3); MCH 30.6 pg (25.7-33.7); MCHC 34.4 g/dl (32.0-36.0); MEAN CELL VOLUME 89.2 fl (80-96); PLATELET COUNT 218 K/MM3 (134-434); RBC 4.29 M/mm3 (3.60-5.2); WHITE BLOOD COUNT 4.8 K/mm3 (4.0-10.0)
[2018-07-01 13:00] LABS: ALBUMIN 3.2 g/dl (3.4-5.0); ALK PHOS 73 U/L (45-117); ANION GAP 6 MMOL/L (8-16); BILIRUBIN,TOTAL 0.4 mg/dL (0.2-1); BLOOD UREA NITROGEN 7 mg/dL (7-18); CALCIUM 8.8 mg/dL (8.5-10.1); CHLORIDE 107 mmol/L (98-107); CO2 26 mmol/L (21-32); CREATININE 0.8 mg/dL (0.55-1.3); GLUCOSE,RANDOM 93 mg/dL (74-106); POTASSIUM 4.4 mmol/L (3.5-5.1); SGOT/AST 13 U/L (15-37); SGPT/ALT 19 U/L (13-61); SODIUM 138 mmol/L (136-145); TOT PROT 6.7 g/dl (6.4-8.2)
[2018-07-01] MEDS: CYCLOBENZAPRINE HCL 10 MG TABLET (FP) PO PRN ×2 (14:20→22:14)
--- NOTE | 2018-07-01 15:03 | PN ---
BHS COWS - Scale Resting Pulse: 0= [place] 80 or Below Sweatin= Chills/Flushing Restless Observation: 0= Sits Still Pupil Size: 0= Normal to Room Light Bone or Joint Aches: 2= Severe Diffuse Aches Runny Nose/ Eye Tearin= Runny Nose/Eyes GI Upset > 30mins: 2= Nausea/Diarrhea Tremor Observation of Outstretched Hands: 0= None Yawning Observation: 1= 1-2x During Session Anxiety or Irritability: 2=Irritable/Anxious Goose Flesh Skin: 0=Smooth Skin COWS Score: 10 BHS Progress Note (SOAP) Subjective: Stomach Cramping, Nausea, Sweating, Interrupted Sleep, H/A, Anxious. Objective: PATIENT A & O X 3, OBSERVED AMBULATING ON UNIT. IN NO ACUTE DISTRESS. PATIENT REPORTS HISTORY OF LOW BP. 07/01/18 15:01 Vital Signs Temperature 97.0 F L 07/01/18 13:29 Pulse Rate 68 07/01/18 13:29 Respiratory Rate 16 07/01/18 13:29 Blood Pressure 95/58 L 07/01/18 13:29 O2 Sat by Pulse Oximetry (%) Laboratory Tests 07/01/18 07/01/18 07/01/18 07:00 07:00 07:00 WBC 4.8 RBC 4.29 Hgb 13.1 Hct 38.3 MCV 89.2 MCH 30.6 D MCHC 34.4 RDW 14.0 Plt Count 218 MPV 8.0 Sodium 138 Potassium 4.4 Chloride 107 Carbon Dioxide 26 Anion Gap 6 L BUN 7 Creatinine 0.8 Creat Clearance w eGFR > 60 Random Glucose 93 Calcium 8.8 Total Bilirubin 0.4 AST 13 L ALT 19 Alkaline Phosphatase 73 Total Protein 6.7 Albumin 3.2 L HIV 1&2 Antibody Screen Negative HIV P24 Antigen Negative LABS NOTED. HCV AB, RPR RESULTS PENDING. 07/01/18 15:02 07/01/18 15:03 Assessment: 07/01/18 15:02 WITHDRAWAL SYMPTOMS. Plan: CONTINUE DETOX. INCREASE DAILY PO FLUID INTAKE. PRN ZOFRAN SL FOR NAUSEA. ENSURE BID FOR POOR APPETITE.
[2018-07-01] MEDS ORDERED: QUEtiapine FUMARATE 200 MG TABLET PO SCH (22:00)
[2018-07-01] MEDS: busPIRone HCL 10 MG TABLET (FP) PO SCH (22:11)
[2018-07-01] MEDS: THIAMINE HCL 100 MG TABLET (FP) PO SCH (22:11)
[2018-07-01] MEDS: DIVALPROEX SODIUM 500 MG TABLET E.C. PO SCH (22:11)
[2018-07-01] MEDS: MELATONIN 5 MG TABLETS PO PRN (22:12)
[2018-07-02] MEDS: diazePAM 5 MG TABLET PO PRN ×3 (04:02→17:26)
--- NOTE | 2018-07-02 08:50 | PN ---
Psychiatric Progress Note Vital Signs: Vital Signs Period Temp Pulse Resp BP Sys/Romero Pulse Ox Last 24 Hr 97 F-98.4 F 59-89 16-18 91-102/55-67 Date of Session: 07/02/18 Chief Complaint:: my medications HPI: Patient approached in the [facility] and reported to carry Bipolar I Disorder with psychotic features, reported history of Suicidal attempts, reports taking for a long period of time medications with a good response: DEPAKOTE 750MG PO BID. SEROQUEL 150MG PO QHS. BUSPAR 10MG PO BID. Patient has been evaluated by Dr. Driscoll yesterday and started on : Depakote 500mg po bid. Buspar 10mg po bid. Patient is agitated and irritable, asking for preadmission medications , reports mood swings and restlessness. Rec: Continue Buspar 10mg po bid, Depakote 500mg po bid. Start: Seroquel 200mg po qhs. Check Blood Depakote level Current Medications: Active Medications Generic Name Dose Route Start Last Admin Trade Name Zoranq PRN Reason Stop Dose Admin Acetaminophen 650 mg 06/30/18 16:15 Tylenol - PO Q4H PRN FEVER Al Hydroxide/Mg Hydroxide 30 ml 06/30/18 16:15 Mylanta Oral Suspension - PO Q6H PRN DYSPEPSIA Albuterol Sulfate 2 puff 06/30/18 16:21 Ventolin Hfa Inhaler - IH Q4H PRN SHORT OF BREATH/WHEEZING Albuterol/Ipratropium 1 amp 06/30/18 16:22 Duoneb - NEB Q6H PRN SHORTNESS OF BREATH Bacitracin 0.9 gm 06/30/18 22:00 07/01/18 22:11 Bacitracin - TP 0.9 gm BID DENTON Administration Budesonide/Formoterol Fumarate 1 puff 06/30/18 22:00 07/01/18 22:11 Symbicort 160/4.5mcg - IH 1 puff BID DENTON Administration Buspirone HCl 10 mg 07/01/18 22:00 07/01/18 22:11 Buspar - PO 10 mg BID DENTON Administration Cyclobenzaprine HCl 10 mg 06/30/18 16:23 07/01/18 22:14 Flexeril - PO 10 mg Q8H PRN Administration MUSCLE SPASMS Diazepam 10 mg 06/30/18 16:15 07/02/18 04:02 Valium - PO 07/03/18 16:14 10 mg Q4H PRN Administration WITHDRAWAL(CONT SUBST) Divalproex Sodium 500 mg 07/01/18 22:00 07/01/18 22:11 Depakote - PO 500 mg BID DENTON Administration Eucalyptus/Menthol/Phenol/Sorbitol 1 each 06/30/18 16:15 Cepastat Lozenge - MM Q4H PRN SORE THROAT Guaifenesin 10 ml 06/30/18 16:15 Robitussin Dm - PO Q6H PRN COUGH Ibuprofen 400 mg 06/30/18 16:15 Motrin - PO Q6H PRN PAIN LEVEL 4-6 Loperamide HCl 4 mg 06/30/18 16:15 Imodium - PO Q6H PRN DIARRHEA Magnesium Citrate 300 ml 06/30/18 16:15 Citroma - PO Q48H PRN CONSTIPATION Magnesium Hydroxide 30 ml 06/30/18 16:15 Milk Of Magnesia - PO DAILY PRN CONSTIPATION Melatonin 5 mg 06/30/18 22:00 07/01/18 22:12 Melatonin PO 5 mg HS PRN Administration INSOMNIA Methadone HCl 15 mg 07/02/18 10:00 Dolophine - PO 07/02/18 10:01 ONCE ONE Methadone HCl 5 mg 07/05/18 06:00 Dolophine - PO 07/05/18 06:01 ONCE@0600 ONE Methadone HCl 15 mg 07/03/18 10:00 Dolophine - PO 07/03/18 10:01 ONCE ONE Methadone HCl 10 mg 07/04/18 10:00 Dolophine - PO 07/04/18 10:01 ONCE ONE Nicotine 21 mg 06/30/18 19:00 07/01/18 10:09 Nicoderm Patch - TD 21 mg DAILY DENTON Administration Nicotine Polacrilex 2 mg 06/30/18 16:15 Nicorette Gum - BC Q2H PRN NICOTINE REPLACEMENT RX Ondansetron HCl 4 mg 06/30/18 16:23 Zofran Odt - SL Q8H PRN NAUSEA AND/OR VOMITING Multivit/Folic Acid/Iron 1 tab 07/01/18 10:00 07/01/18 10:09 Vitamins (Sjr) - PO 1 tab DAILY DENTON Administration Thiamine HCl 100 mg 06/30/18 22:00 07/01/18 22:11 Vitamin B1 - PO 100 mg HS DENTON Administration Medication(s) Change(s): Seroquel 200mg po qhs Provider note:: Supportive psychotherapy provided Mental Status Exam - Mental Status Exam Alert and Oriented to: Place, Person Cognitive Function: Fair Patient Appearance: Well Groomed Mood: Anxious, Irritable Affect: Labile Patient Behavior: Talkative, Cooperative Speech Pattern: Excessive Voice Loudness: Mildly Loud Thought Process: Goal Oriented Thought Disorder: Being Controlled Hallucinations: Denies Suicidal Ideation: Denies Homicidal Ideation: Denies Insight/Judgement: Fair Sleep: Difficulty falling asleep Appetite: Weight loss Muscle strength/Tone: Normal Gait/Station: Normal Additional Comments: Seroquel 200mg po qhs Psychiatric Treatment Plan - Problem List (1) Alcohol dependence with uncomplicated withdrawal Current Visit: Yes (2) IVDU (intravenous drug user) Current Visit: Yes (3) Opioid dependence with withdrawal Current Visit: Yes (4) Anxiety Current Visit: Yes (5) Asthma Current Visit: Yes Qualifiers: Asthma severity: moderate Asthma persistence: persistent Asthma complication type: uncomplicated Qualified Code(s): J45.40 - Moderate persistent asthma, uncomplicated (6) Cannabis dependence Current Visit: Yes (7) Drug-induced mood disorder Current Visit: Yes (8) Herniated lumbar intervertebral disc Current Visit: Yes (9) History of bipolar disorder Current Visit: Yes (10) History of depression Current Visit: Yes (11) Nicotine dependence Current Visit: Yes Qualifiers: Nicotine product type: cigarettes Substance use status: uncomplicated Qualified Code(s): F17.210 - Nicotine dependence, cigarettes, uncomplicated (12) Abscess of arm, left Current Visit: No (13) Use of cane as ambulatory aid Current Visit: No (14) Bipolar disorder Current Visit: No Qualifiers: Active/Remission status: in partial remission Most recent bipolar episode type: mixed Qualified Code(s): F31.77 - Bipolar disorder, in partial remission , most recent episode mixed Initial treatment plan: Seroquel 200mg po qhs. Depakote blood level
[2018-07-02] MEDS ORDERED: METHADONE HCL 5 MG TABLET (FOR DETOX USE ONLY) PO ONE (10:00)
[2018-07-02] MEDS: DIVALPROEX SODIUM 500 MG TABLET E.C. PO SCH ×2 (10:11→22:27)
[2018-07-02] MEDS: BUDESONIDE/FORMETEROL FUMARATE 160/4.5 mcg INHALER IH SCH ×2 (10:11→22:27)
[2018-07-02] MEDS: NICOTINE 21 MG/24 HOURS TOPICAL PATCH TD SCH (10:11)
[2018-07-02] MEDS: PRENATAL VITAMINS W/ FOLIC ACID TABLET (FP) PO SCH (10:12)
[2018-07-02] MEDS: BACITRACIN 0.9 GM PACKET TP SCH ×2 (10:12→22:27)
[2018-07-02] MEDS: busPIRone HCL 10 MG TABLET (FP) PO SCH ×2 (10:13→22:27)
[2018-07-02] MEDS ORDERED: COLLOIDAL OATMEAL 1 BAR EACH TP PRN (10:53)
[2018-07-02] MEDS ORDERED: HYDROCORTISONE 0.5% TOPICAL CREAM 30 GM TUBE TP SCH (11:00)
[2018-07-02] MEDS: CYCLOBENZAPRINE HCL 10 MG TABLET (FP) PO PRN ×2 (11:16→17:26)
--- NOTE | 2018-07-02 12:49 | PN ---
S Progress Note Note: patient reported that sense of burning from using hydrocortison cream discontinue hydrocortison cream begin triamcinolole ointment for chronic eczema
[2018-07-02] MEDS: TRIAMCINOLONE ACET 0.1% OINT 15 GM TUBE TP SCH ×3 (13:58→22:26)
--- NOTE | 2018-07-02 16:31 | PN ---
BHS COWS - Scale Resting Pulse: 2= [place] 101-120 Sweatin= Chills/Flushing Restless Observation: 0= Sits Still Pupil Size: 0= Normal to Room Light Bone or Joint Aches: 2= Severe Diffuse Aches Runny Nose/ Eye Tearin= None GI Upset > 30mins: 2= Nausea/Diarrhea Tremor Observation of Outstretched Hands: 0= None Yawning Observation: 1= 1-2x During Session Anxiety or Irritability: 2=Irritable/Anxious Goose Flesh Skin: 0=Smooth Skin COWS Score: 10 BHS Progress Note (SOAP) Subjective: Sweating, Nausea, Interrupted Sleep, Constipation, H/A. Objective: PATIENT A & O X 3. IN NO ACUTE DISTRESS. 07/02/18 16:28 Vital Signs Temperature 96.2 F L 07/02/18 13:22 Pulse Rate 52 L 07/02/18 13:22 Respiratory Rate 18 07/02/18 13:22 Blood Pressure 102/68 07/02/18 13:22 O2 Sat by Pulse Oximetry (%) Laboratory Tests 07/01/18 07/01/18 07/01/18 07:00 07:00 07:00 WBC 4.8 RBC 4.29 Hgb 13.1 Hct 38.3 MCV 89.2 MCH 30.6 D MCHC 34.4 RDW 14.0 Plt Count 218 MPV 8.0 Sodium 138 Potassium 4.4 Chloride 107 Carbon Dioxide 26 Anion Gap 6 L BUN 7 Creatinine 0.8 Creat Clearance w eGFR > 60 Random Glucose 93 Calcium 8.8 Total Bilirubin 0.4 AST 13 L ALT 19 Alkaline Phosphatase 73 Total Protein 6.7 Albumin 3.2 L RPR Titer Hep C Ab Diagnostic <0.1 HIV 1&2 Antibody Screen HIV P24 Antigen 07/01/18 07/01/18 07:00 07:00 WBC RBC Hgb Hct MCV MCH MCHC RDW Plt Count MPV Sodium Potassium Chloride Carbon Dioxide Anion Gap BUN Creatinine Creat Clearance w eGFR Random Glucose Calcium Total Bilirubin AST ALT Alkaline Phosphatase Total Protein Albumin RPR Titer Nonreactive Hep C Ab Diagnostic HIV 1&2 Antibody Screen Negative HIV P24 Antigen Negative LABS NOTED. Assessment: 07/02/18 16:29 WITHDRAWAL SYMPTOMS. Plan: CONTINUE DETOX. INCREASE DAILY PO FLUID INTAKE. PRN FLEXERIL PO FOR BODY ACHES / MUSCLE SPASMS. PRN ZOFRAN SL FOR NAUSEA.
[2018-07-02] MEDS ORDERED: QUEtiapine FUMARATE 200 MG TABLET PO SCH (22:00)
[2018-07-02] MEDS: THIAMINE HCL 100 MG TABLET (FP) PO SCH (22:26)
[2018-07-03] MEDS: diazePAM 5 MG TABLET PO PRN (05:23)
[2018-07-03 09:53] VITALS: BP 98/57; PULSE 62; TEMP 96.8
[2018-07-03] MEDS ORDERED: METHADONE HCL 5 MG TABLET (FOR DETOX USE ONLY) PO ONE (10:00)
--- NOTE | 2018-07-03 15:28 | PN ---
BHS Progress Note (SOAP) Subjective: Sweating, Nausea, Interrupted Sleep, Anxious. Objective: PATIENT A & O X 3, OBSERVED AMBULATING ON UNIT. IN NO ACUTE DISTRESS. 07/03/18 15:27 Vital Signs Temperature 96.8 F L 07/03/18 09:35 Pulse Rate 62 07/03/18 09:35 Respiratory Rate 18 07/03/18 09:35 Blood Pressure 98/57 L 07/03/18 09:35 O2 Sat by Pulse Oximetry (%) Laboratory Tests 07/01/18 07/01/18 07/01/18 07:00 07:00 07:00 WBC 4.8 RBC 4.29 Hgb 13.1 Hct 38.3 MCV 89.2 MCH 30.6 D MCHC 34.4 RDW 14.0 Plt Count 218 MPV 8.0 Sodium 138 Potassium 4.4 Chloride 107 Carbon Dioxide 26 Anion Gap 6 L BUN 7 Creatinine 0.8 Creat Clearance w eGFR > 60 Random Glucose 93 Calcium 8.8 Total Bilirubin 0.4 AST 13 L ALT 19 Alkaline Phosphatase 73 Total Protein 6.7 Albumin 3.2 L Valproic Acid RPR Titer Hep C Ab Diagnostic <0.1 HIV 1&2 Antibody Screen HIV P24 Antigen 07/01/18 07/01/18 07/03/18 07:00 07:00 07:00 WBC RBC Hgb Hct MCV MCH MCHC RDW Plt Count MPV Sodium Potassium Chloride Carbon Dioxide Anion Gap BUN Creatinine Creat Clearance w eGFR Random Glucose Calcium Total Bilirubin AST ALT Alkaline Phosphatase Total Protein Albumin Valproic Acid 91.9 RPR Titer Nonreactive Hep C Ab Diagnostic HIV 1&2 Antibody Screen Negative HIV P24 Antigen Negative LABS NOTED. Assessment: 07/03/18 15:28 WITHDRAWAL SYMPTOMS. Plan: CONTINUE DETOX. INCREASE DAILY PO FLUID INTAKE.
--- NOTE | 2018-07-03 15:34 | DS ---
[facility] Detox Discharge Summary Admission Date: 06/30/18 Discharge Date: 07/03/18 - History Present History: Alcohol Dependence, Cannabis Dependence, Opioid Dependence Additional Comments: DESPITE ENCOURAGEMENT FROM RECOVERER TO REMAIN ON DETOX UNIT TO COMPLETE DETOX REGIMEN , PATIENT DOES NOT WISH TO REMAIN TO COMPLETE DETOX REGIMEN, STATING THAT SHE "JUST WANTS TO GO HOME AND BE ABLE TO GO TO SLEEP IN HER OWN BED." RISKS OF LEAVING DETOX UNIT AGAINST MEDICAL ADVICE AND PRIOR TO COMPLETION OF DETOX REGIMEN EXPLAINED TO PATIENT. PATIENT ADVISED TO GO IMMEDIATELY TO NEAREST ER SHOULD ANY INTOLERABLE DETOX SYMPTOMS DEVELOP AT ANY TIME. PATIENT VERBALIZED UNDERSTANDING OF ALL INFORMATION / RECOMMENDATIONS PRESENTED TO HIM PRIOR TO DEPARTURE FROM DETOX UNIT. PATIENT LEFT DETOX UNIT IN STABLE MEDICAL CONDITION. Pertinent Past History: Nicotine Dependence, History Of Depression, Anxiety, History Of Bipolar Disorder , Intravenous Drug User (IVDU), History of Herniated Cervical Intervertebral Discs, History of Herniated Lumbar Intervertebral Discs, Asthma, C.O.P.D., History Of Insomnia. - Physical Exam Results Vital Signs: Vital Signs Temperature 96.8 F L 07/03/18 09:35 Pulse Rate 62 07/03/18 09:35 Respiratory Rate 18 07/03/18 09:35 Blood Pressure 98/57 L 07/03/18 09:35 O2 Sat by Pulse Oximetry (%) Pertinent Admission Physical Exam Findings: WITHDRAWAL SYMPTOMS. Laboratory Tests 07/01/18 07/01/18 07/01/18 07:00 07:00 07:00 WBC 4.8 RBC 4.29 Hgb 13.1 Hct 38.3 MCV 89.2 MCH 30.6 D MCHC 34.4 RDW 14.0 Plt Count 218 MPV 8.0 Sodium 138 Potassium 4.4 Chloride 107 Carbon Dioxide 26 Anion Gap 6 L BUN 7 Creatinine 0.8 Creat Clearance w eGFR > 60 Random Glucose 93 Calcium 8.8 Total Bilirubin 0.4 AST 13 L ALT 19 Alkaline Phosphatase 73 Total Protein 6.7 Albumin 3.2 L Valproic Acid RPR Titer Hep C Ab Diagnostic <0.1 HIV 1&2 Antibody Screen HIV P24 Antigen 07/01/18 07/01/18 07/03/18 07:00 07:00 07:00 WBC RBC Hgb Hct MCV MCH MCHC RDW Plt Count MPV Sodium Potassium Chloride Carbon Dioxide Anion Gap BUN Creatinine Creat Clearance w eGFR Random Glucose Calcium Total Bilirubin AST ALT Alkaline Phosphatase Total Protein Albumin Valproic Acid 91.9 RPR Titer Nonreactive Hep C Ab Diagnostic HIV 1&2 Antibody Screen Negative HIV P24 Antigen Negative LABS NOTED. - Treatment Hospital Course: Detox Protocol Followed, Detoxed Safely - Medication Discharge Medications: Ambulatory Orders Budesonide/Formeterol Fumarate [SYMBICORT 160/4.5mcg -] 1 inh PO BID #1 inhaler 03/04/18 Buspirone HCl [Buspar -] 10 mg PO BID #60 tablet 03/05/18 Divalproex *ER* [Depakote *ER* -] 750 mg PO BID #60 tablet.sa 03/05/18 Albuterol Sulfate Inhaler - [Ventolin HFA Inhaler -] 2 inh PO Q4H PRN 06/30/18 Quetiapine Fumarate [Seroquel -] 200 mg PO HS #30 tablet 07/02/18 - Diagnosis (1) History of bipolar disorder Status: Chronic (2) History of depression Status: Chronic (3) Anxiety Status: Chronic (4) IVDU (intravenous drug user) Status: Acute (5) Nicotine dependence Status: Chronic Qualifiers: Nicotine product type: cigarettes Substance use status: uncomplicated Qualified Code(s): F17.210 - Nicotine dependence, cigarettes, uncomplicated (6) Opioid dependence with withdrawal Status: Acute (7) Asthma Status: Chronic Qualifiers: Asthma severity: moderate Asthma persistence: persistent Asthma complication type: uncomplicated Qualified Code(s): J45.40 - Moderate persistent asthma, uncomplicated (8) Cannabis dependence Status: Chronic (9) Herniated lumbar intervertebral disc Status: Chronic (10) Herniated cervical intervertebral disc Status: Chronic (11) Drug-induced mood disorder Status: Chronic (12) Insomnia Status: Chronic Qualifiers: Insomnia type: unspecified Qualified Code(s): G47.00 - Insomnia, unspecified - AMA Did Patient Leave Against Medical Advice: Yes (PATIENT DID NOT WISH TO REMAIN TO COMPLETE DETOX REGIMEN.)
[2018-07-04] MEDS ORDERED: METHADONE HCL 10 MG TABLET (FOR DETOX USE ONLY) PO ONE (10:00)
[2018-07-05] MEDS ORDERED: METHADONE HCL 5 MG TABLET (FOR DETOX USE ONLY) PO ONE (06:00)
== END 2018-07-03 09:25 | disposition left against medical advice (07) | DRG 894 ==
LOC: YASAS 13:36 → Y3N 18:39
PROVIDERS: ADMIT Surgery; ATTEND Surgery
PROC: HZ2ZZZZ Detoxification Services for Substance Abuse Treatment (ICD-10-PCS; principal; 2018-06-30)
DX: F11.23 Opioid dependence with withdrawal (principal); L02.414 Cutaneous abscess of left upper limb; F10.230 Alcohol dependence with withdrawal, uncomplicated; F12.20 Cannabis dependence, uncomplicated; F17.213 Nicotine dependence, cigarettes, with withdrawal; F31.77 Bipolar disorder, in partial remission, most recent episode mixed; F41.8 Other specified anxiety disorders; F19.24 Other psychoactive substance dependence with psychoactive substance-induced mood disorder; F44.9 Dissociative and conversion disorder, unspecified; J45.909 Unspecified asthma, uncomplicated; M50.20 Other cervical disc displacement, unspecified cervical region; M51.26 Other intervertebral disc displacement, lumbar region; G47.00 Insomnia, unspecified; Z86.59 Personal history of other mental and behavioral disorders; R26.89 Other abnormalities of gait and mobility; Z99.89 Dependence on other enabling machines and devices; Z59.0 Homelessness
CPT/HCPCS: 36415; 80053; 80164; 85027; 86593; 86803; 87389; 93005; 93010

== ENCOUNTER 2019-01-26 08:23 | Inpatient (IN) | payer OTHER ==
[2019-01-26 09:19] VITALS: BMI 23.3
--- NOTE | 2019-01-26 10:16 | HP ---
COWS - Scale Resting Pulse: 0= [place] 80 or Below Sweatin= Chills/Flushing Restless Observation: 1= Difficult to Sit Still Pupil Size: 1= Pupils >than Normal Bone or Joint Aches: 2= Severe Diffuse Aches Runny Nose/ Eye Tearin= Runny Nose/Eyes GI Upset > 30mins: 3= Vomiting/Diarrhea Tremor Observation: 2= Slight Tremor Visible Yawning Observation: 2= >3x During Session Anxiety or Irritability: 2=Irritable/Anxious Goose Flesh Skin: 0=Smooth Skin COWS Score: 16 CIWA Score - Admission Criteria [facility]ASAS Guidelines: Admission for Medically Managed Detox: Requires at least one of the followin. CIWA greater than 12 2. Seizures within the past 24 hours 3. Delirium tremens within the past 24 hours 4. Hallucinations within the past 24 hours 5. Acute intervention needed for co occurring medical disorder 6. Acute intervention needed for co occurring psychiatric disorder 7. Severe withdrawal that cannot be handled at a lower level of care (continued vomiting, continued diarrhea, abnormal vital signs) requiring intravenous medication and/or fluids 8. Admission ROS S - HPI Chief Complaint: I want to get clean Allergies/Adverse Reactions: Allergies Allergy/AdvReac Type Severity Reaction Status Date / Time diphenhydramine HCl Allergy Severe Swelling Verified 01/26/19 09:09 [From Benadryl] sulfamethoxazole Allergy Severe Swelling Verified 01/26/19 09:09 [From Bactrim] History of Present Illness: this 38 years old female wwith heroin and marijuana dependence seeking help ti stopusing,withdrawal symptom, multiple admissions in the past,last [facility] in 06/30/18 to 07/03/18 nicotine 1 to 1 and a half pack/day weight loss bipolar disorder,ptsd,anxiety no seizure,no syncope no significant period of sobriety plan for rehab after detox history of asthma Exam Limitations: No Limitations - Ebola screening Have you traveled outside of the country in the last 21 days: No (N) Have you had contact with anyone from an Ebola affected area: No Do you have a fever: No - Review of Systems Constitutional: Chills, Loss of Appetite, Malaise, Night Sweats, Changes in sleep, Weakness, Unintentional Wgt. Loss EENT: reports: Tearing, Nose Congestion Respiratory: reports: No Symptoms reported Cardiac: reports: No Symptoms Reported GI: reports: Diarrhea, Nausea, Vomiting, Abdominal cramping : reports: No Symptoms Reported Musculoskeletal: reports: Back Pain, Joint Pain, Muscle Pain, Joint Stiffness Integumentary: reports: Dryness Neuro: reports: Headache, Tremors Endocrine: reports: No Symptoms Reported Hematology: reports: No Symptoms Reported Psychiatric: reports: No Sypmtoms Reported, Judgement Intact, Mood/Affect Appropiate, Orientated x3, Anxious, other (bipolar disorder,ptsd) Other Systems: Reviewed and Negative Patient History - Patient Medical History Hx Anemia: No Hx Asthma: Yes (Pt. is on SYMBICORT and MDI (PRN).) Hx Chronic Obstructive Pulmonary Disease (COPD): No Hx Cancer: No Hx Cardiac Disorders: No Hx Congestive Heart Failure: No Hx Hypertension: No Hx Hypercholesterolemia: No Hx Pacemaker: No HX Cerebrovascular Accident: No Hx Seizures: No Hx Dementia: No Hx Diabetes: No Hx Gastrointestinal Disorders: No Hx Liver Disease: No Hx Genitourinary Disorders: No Hx Sexually Transmitted Disorders: No Hx Renal Disease (ESRD): No Hx Thyroid Disease: No Hx Human Immunodeficiency Virus (HIV): No (last 06/23 negative) Hx Hepatitis C: No (LAST TESTED IN 05/2016: NEGATIVE.) Hx Depression: Yes (Hospitalized two years ago ([facility], [place] Hx Suicide Attempt: Yes (tried to slit wrist APPROX. 4 yearS ago; PATIENT DENIES SI / HI.) Hx Bipolar Disorder: Yes (Takes Medication.) Hx Schizophrenia: No Other Medical History: no suicidal,no homicidal - Patient Surgical History Past Surgical History: Yes Hx Neurologic Surgery: No Hx Cataract Extraction: No Hx Cardiac Surgery: No Hx Lung Surgery: No Hx Breast Surgery: No Hx Breast Biopsy: No Hx Abdominal Surgery: Yes (tubal ligation 2001) Hx Appendectomy: No Hx Cholecystectomy: No Hx Genitourinary Surgery: No Hx Section: No Hx Orthopedic Surgery: No Hx Hysterectomy: No Other Surgical History: Tubal ligation in 2001. Anesthesia Reaction: No - PPD History Previous Implant?: Yes Documented Results: Negative w/o proof Implanted On Prior R Admission?: Yes Date: 08/21/17 Results: NEGATIVE PPD to be Administered?: No - Reproductive History Patient is a Female of Child Bearing Age (11 -55 yrs old): Yes Last Menstrual Period: 06/25/19 Patient : No - Smoking Cessation Smoking history: Current every day smoker Have you smoked in the past 12 months: Yes Aproximately how many cigarettes per day: 20 Cigars Per Day: 0 Hx Chewing Tobacco Use: No Initiated information on smoking cessation: Yes 'Breaking Loose' booklet given: 01/26/19 - Substance & Tx. History Hx Alcohol Use: No Hx Substance Use: Yes Substance Use Type: Heroin, Marijuana Hx Substance Use Treatment: Yes ([facility] 06/30/18 to 07/03/18) - Substances abused Heroin Substance route: Injection Frequency: Daily Amount used: 10 to 20 bags Age of first use: 26 Date of last use: 01/25/19 Marijuana/Hashish Substance route: Smoking Frequency: Daily Amount used: 1 to 2 blunt Age of first use: 12 Date of last use: 01/25/19 Admission Physical Exam BHS - Vital Signs Vital Signs: Vital Signs - 24 hr 01/26/19 09:08 Temperature 97.0 F L Pulse Rate 72 Respiratory 16 Rate Blood Pressure 97/67 - Physical General Appearance: Yes: Moderate Distress, Tremorous, Irritable, Sweating, Anxious HEENTM: Yes: Normal ENT Inspection, BARB, Pharynx Normal Respiratory: Yes: Lungs Clear, Normal Breath Sounds, No Respiratory Distress Neck: Yes: Within Normal Limits, Supple, Trachea in good position Breast: Yes: Breast Exam Deferred Cardiology: Yes: Within Normal Limits, Regular Rhythm, Regular Rate, S1, S2 Abdominal: Yes: Normal Bowel Sounds, Non Tender, Flat, Soft, Organomegaly Genitourinary: Yes: Within Normal Limits Back: Yes: Normal Inspection, Muscle Spasm Musculoskeletal: Yes: Back pain, Joint Stiffness, Muscle Pain Extremities: Yes: Normal Range of Motion, Tremors Neurological: Yes: reference investigator II-XII NML intact, Fully Oriented, Alert, Motor Strength 5/5 Integumentary: Yes: Dry, Track Howard (cellulitis r/o bscess left forearm) Lymphatic: Yes: Within Normal Limits - Diagnostic (1) Cellulitis of left arm Current Visit: Yes Status: Acute (2) Abscess of arm, left Current Visit: No Status: Acute (3) IVDU (intravenous drug user) Current Visit: No Status: Acute (4) Opioid dependence with withdrawal Current Visit: No Status: Acute (5) Asthma Current Visit: No Status: Chronic Qualifiers: Asthma severity: moderate Asthma persistence: persistent Asthma complication type: uncomplicated Qualified Code(s): J45.40 - Moderate persistent asthma, uncomplicated (6) Weight loss Current Visit: Yes Status: Acute (7) Herniated cervical intervertebral disc Current Visit: No Status: Chronic (8) Herniated lumbar intervertebral disc Current Visit: No Status: Chronic (9) History of bipolar disorder Current Visit: No Status: Chronic (10) History of depression Current Visit: No Status: Chronic (11) PTSD (post-traumatic stress disorder) Current Visit: Yes Status: Acute Cleared for Admission [facility] - Detox or Rehab [facility] Level of Care: Medically Managed Detox Regimen/Protocol: Methadone Breathalyzer - Breathalyzer Breathalyzer: 0 Urine Drug Screen - Test Device Lot number: [id number] Expiration date: 10/01/20 - Control Is test valid?: Yes - Results Drug screen NEGATIVE: No Urine drug screen results: THC-Marijuana, MOP-Opiates, OXY-Oxycodone Inpatient Rehab Admission - Rehab Decision to Admit Inpatient rehab admission?: No
[2019-01-26] MEDS ORDERED: MAG HYDROX/AL HYDROX/SIMETH 30 ML UNIT-DOSE CUP PO PRN (10:26)
[2019-01-26] MEDS ORDERED: IBUPROFEN 400 MG TABLET (FP) PO PRN (10:26)
[2019-01-26] MEDS ORDERED: ACETAMINOPHEN 325 MG TABLET (FP) PO PRN ×2 (10:26)
[2019-01-26] MEDS ORDERED: hydrOXYzine PAMOATE 25 MG CAPSULE (FP) PO PRN (10:26)
[2019-01-26] MEDS ORDERED: MENTHOL/PHENOL 1 EACH UD MM PRN (10:26)
[2019-01-26] MEDS ORDERED: MELATONIN 5 MG TABLETS PO PRN (10:26)
[2019-01-26] MEDS ORDERED: BISMUTH SUBSALICYLATE 262 MG/15 ML BTL PO PRN (10:26)
[2019-01-26] MEDS ORDERED: cloNIDine HCL 0.1 MG TABLET PO PRN (10:26)
[2019-01-26] MEDS ORDERED: MAGNESIUM HYDROX 2400MG/30ML ORAL SUSPENSION 30 ML CUP PO PRN (10:26)
[2019-01-26] MEDS ORDERED: MAGNESIUM CITRATE 300 ML BOTTLE PO PRN (10:26)
[2019-01-26] MEDS ORDERED: METHADONE HCL 10 MG TABLET (FOR DETOX USE ONLY) PO ONE (10:45)
[2019-01-26] MEDS: CEPHALEXIN MONOHYDRATE 500 MG CAPSULE (UD) PO SCH ×3 (11:15→23:04)
[2019-01-26] MEDS: diazePAM 5 MG TABLET PO PRN ×3 (11:16→22:32)
[2019-01-26] MEDS: METHOCARBAMOL 500 MG TABLET PO PRN ×3 (11:17→22:33)
[2019-01-26 12:47] LABS: HEMATOCRIT 41.1 % (32.4-45.2); HEMOGLOBIN 13.8 GM/dL (10.7-15.3); MCH 29.1 pg (25.7-33.7); MCHC 33.7 g/dl (32.0-36.0); MEAN CELL VOLUME 86.4 fl (80-96); MEAN PLT VOLUME 8.4 fl (7.5-11.1); PLATELET COUNT 194 K/MM3 (134-434); RBC 4.75 M/mm3 (3.60-5.2); RDW 14.9 % (11.6-15.6); WHITE BLOOD COUNT 6.4 K/mm3 (4.0-10.0)
[2019-01-26 12:50] LABS: ALBUMIN 3.9 g/dl (3.4-5.0); BILIRUBIN,TOTAL 0.7 mg/dL (0.2-1); CALCIUM 9.4 mg/dL (8.5-10.1); CREATININE 0.8 mg/dL (0.55-1.3); POTASSIUM 4.4 mmol/L (3.5-5.1); TOT PROT 7.6 g/dl (6.4-8.2)
[2019-01-26] MEDS: BUDESONIDE/FORMETEROL FUMARATE 160/4.5 mcg INHALER IH SCH (22:31)
[2019-01-26] MEDS: THIAMINE HCL 100 MG TABLET (FP) PO SCH (22:32)
[2019-01-26] MEDS: NICOTINE 21 MG/24 HOURS TOPICAL PATCH TD SCH (22:35)
[2019-01-27] MEDS: diazePAM 5 MG TABLET PO PRN ×4 (04:44→22:17)
[2019-01-27] MEDS: METHOCARBAMOL 500 MG TABLET PO PRN ×3 (04:45→22:16)
[2019-01-27] MEDS: CEPHALEXIN MONOHYDRATE 500 MG CAPSULE (UD) PO SCH ×4 (06:15→23:02)
[2019-01-27] MEDS ORDERED: METHADONE HCL 10 MG TABLET (FOR DETOX USE ONLY) ONE (08:18)
[2019-01-27] MEDS ORDERED: METHADONE HCL 5 MG TABLET (FOR DETOX USE ONLY) ONE (08:19)
[2019-01-27] MEDS ORDERED: METHADONE (DETOX) 20 MG, METHADONE (DETOX) 5 MG PO ONE (10:00)
[2019-01-27] MEDS: PRENATAL VITAMINS W/ FOLIC ACID TABLET (FP) PO SCH (10:54)
[2019-01-27] MEDS: BUDESONIDE/FORMETEROL FUMARATE 160/4.5 mcg INHALER IH SCH ×2 (10:55→22:13)
[2019-01-27] MEDS: NICOTINE 21 MG/24 HOURS TOPICAL PATCH TD SCH (10:55)
[2019-01-27] MEDS: ALBUTEROL SO4 8 GM HFA INHALER IH PRN ×2 (10:56→17:29)
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
[2019-01-27] MEDS ORDERED: busPIRone HCL 10 MG TABLET (FP) PO SCH (11:45)
--- NOTE | 2019-01-27 14:00 | PN ---
S COWS - Scale Resting Pulse: 0= [place] 80 or Below Sweatin= No chills or Flushing Restless Observation: 1= Difficult to Sit Still Pupil Size: 1= Pupils >than Normal Bone or Joint Aches: 2= Severe Diffuse Aches Runny Nose/ Eye Tearin= Runny Nose/Eyes GI Upset > 30mins: 2= Nausea/Diarrhea Tremor Observation of Outstretched Hands: 2= Slight Tremor Visible Yawning Observation: 1= 1-2x During Session Anxiety or Irritability: 2=Irritable/Anxious Goose Flesh Skin: 0=Smooth Skin COWS Score: 13 S Progress Note (SOAP) Subjective: alert,irritable,anxious,pain in the back,body,interrupted sleep Objective: 01/27/19 13:58 Vital Signs Temperature 98.0 F 01/27/19 13:55 Pulse Rate 57 L 01/27/19 13:55 Respiratory Rate 18 01/27/19 13:55 Blood Pressure 93/58 L 01/27/19 13:55 O2 Sat by Pulse Oximetry (%) Laboratory Last Values WBC 6.4 K/mm3 (4.0-10.0) 01/26/19 10:25 RBC 4.75 M/mm3 (3.60-5.2) 01/26/19 10:25 Hgb 13.8 GM/dL (10.7-15.3) 01/26/19 10:25 Hct 41.1 % (32.4-45.2) 01/26/19 10:25 MCV 86.4 fl (80-96) 01/26/19 10:25 MCH 29.1 pg (25.7-33.7) 01/26/19 10:25 MCHC 33.7 g/dl (32.0-36.0) 01/26/19 10:25 RDW 14.9 % (11.6-15.6) 01/26/19 10:25 Plt Count 194 K/MM3 (134-434) 01/26/19 10:25 MPV 8.4 fl (7.5-11.1) 01/26/19 10:25 Sodium 135 mmol/L (136-145) L 01/26/19 10:25 Potassium 4.4 mmol/L (3.5-5.1) 01/26/19 10:25 Chloride 104 mmol/L (98-107) 01/26/19 10:25 Carbon Dioxide 23 mmol/L (21-32) 01/26/19 10:25 Anion Gap 8 MMOL/L (8-16) 01/26/19 10:25 BUN 14.0 mg/dL (7-18) 01/26/19 10:25 Creatinine 0.8 mg/dL (0.55-1.3) 01/26/19 10:25 Est GFR (CKD-EPI)AfAm 107.64 01/26/19 10:25 Est GFR (CKD-EPI)NonAf 92.87 01/26/19 10:25 Random Glucose 83 mg/dL (74-106) 01/26/19 10:25 Calcium 9.4 mg/dL (8.5-10.1) 01/26/19 10:25 Total Bilirubin 0.7 mg/dL (0.2-1) 01/26/19 10:25 AST 19 U/L (15-37) 01/26/19 10:25 ALT 20 U/L (13-61) 01/26/19 10:25 Alkaline Phosphatase 92 U/L (45-117) 01/26/19 10:25 Total Protein 7.6 g/dl (6.4-8.2) 01/26/19 10:25 Albumin 3.9 g/dl (3.4-5.0) 01/26/19 10:25 POC Urine HCG, Qual Negative 01/26/19 09:31 Hep C Ab Diagnostic 0.2 s/co ratio (0.0-0.9) 01/26/19 10:25 Assessment: 01/27/19 13:59 withdrawal symptom Plan: continue detox methadone regimen,sodium 135,will repaet bmp in am
[2019-01-27] MEDS ORDERED: ALBUTEROL SO4 0.083% IH SOL 2.5 MG/3 ML VIAL.NEB. NEB PRN (17:37)
[2019-01-27 18:26] LABS: EPI CELLS 5.9 /HPF (0-5/HPF); HYALINE CASTS 109 /lpf (0-8); URINE APPEARANCE CLEAR; URINE BACTERIA 6.8 /hpf (NEGATIVE); URINE BILIRUBIN NEGATIVE (NEGATIVE); URINE COLOR YELLOW; URINE GLUCOSE (UA) NEGATIVE (NEGATIVE); URINE KETONE NEGATIVE (NEGATIVE); URINE LEUK ESTERASE TRACE (NEGATIVE); URINE NITRITE NEGATIVE (NEGATIVE); URINE PROTEIN TRACE (NEGATIVE); URINE RBC 1 /hpf (0-4); URINE WBC 1 /hpf (0-5)
[2019-01-27] MEDS ORDERED: QUEtiapine FUMARATE 100 MG TABLET (FP) PO SCH (22:00)
[2019-01-27] MEDS: THIAMINE HCL 100 MG TABLET (FP) PO SCH (22:14)
[2019-01-27] MEDS: busPIRone HCL 5 MG TABLET PO SCH (22:14)
[2019-01-27] MEDS: DIVALPROEX SODIUM 500 MG TABLET E.C. PO SCH (22:14)
[2019-01-28] MEDS: CEPHALEXIN MONOHYDRATE 500 MG CAPSULE (UD) PO SCH ×4 (05:43→23:03)
[2019-01-28] MEDS: diazePAM 5 MG TABLET PO PRN ×4 (05:46→22:36)
[2019-01-28 09:47] LABS: BLOOD UREA NITROGEN 9.8 mg/dL (7-18); CALCIUM 8.7 mg/dL (8.5-10.1); CREATININE 0.7 mg/dL (0.55-1.3); POTASSIUM 3.8 mmol/L (3.5-5.1)
[2019-01-28] MEDS ORDERED: METHADONE HCL 10 MG TABLET (FOR DETOX USE ONLY) PO ONE (10:00)
[2019-01-28] MEDS: BUDESONIDE/FORMETEROL FUMARATE 160/4.5 mcg INHALER IH SCH ×2 (10:25→22:35)
[2019-01-28] MEDS: DIVALPROEX SODIUM 500 MG TABLET E.C. PO SCH (10:25)
[2019-01-28] MEDS: ALBUTEROL SO4 8 GM HFA INHALER IH PRN (10:25)
[2019-01-28] MEDS: NICOTINE 21 MG/24 HOURS TOPICAL PATCH TD SCH (10:26)
[2019-01-28] MEDS: PRENATAL VITAMINS W/ FOLIC ACID TABLET (FP) PO SCH (10:26)
[2019-01-28] MEDS: METHOCARBAMOL 500 MG TABLET PO PRN ×3 (10:28→22:38)
[2019-01-28] MEDS ORDERED: METHADONE HCL 10 MG TABLET (FOR DETOX USE ONLY) ONE (10:51)
[2019-01-28] MEDS: busPIRone HCL 5 MG TABLET PO SCH (11:40)
--- NOTE | 2019-01-28 14:21 | PN ---
S COWS - Scale Resting Pulse: 0= [place] 80 or Below Sweatin= Chills/Flushing Restless Observation: 0= Sits Still Pupil Size: 0= Normal to Room Light Bone or Joint Aches: 1= Mild Discomfort Runny Nose/ Eye Tearin= Nasal Congestion GI Upset > 30mins: 1= Stomach Cramp Tremor Observation of Outstretched Hands: 2= Slight Tremor Visible Yawning Observation: 1= 1-2x During Session Anxiety or Irritability: 2=Irritable/Anxious Goose Flesh Skin: 0=Smooth Skin COWS Score: 9 BHS Progress Note (SOAP) Subjective: left forearm IV Drug abscess semi solid skin color oval shap swell noted encourage warm compression with keflex po q6h discuss aftercare with staff prefers revelation Objective: 01/28/19 14:22 Vital Signs Temperature 97.5 F L 01/28/19 13:12 Pulse Rate 65 01/28/19 13:12 Respiratory Rate 18 01/28/19 13:12 Blood Pressure 104/67 01/28/19 13:12 O2 Sat by Pulse Oximetry (%) Laboratory Last Values WBC 6.4 K/mm3 (4.0-10.0) 01/26/19 10:25 RBC 4.75 M/mm3 (3.60-5.2) 01/26/19 10:25 Hgb 13.8 GM/dL (10.7-15.3) 01/26/19 10:25 Hct 41.1 % (32.4-45.2) 01/26/19 10:25 MCV 86.4 fl (80-96) 01/26/19 10:25 MCH 29.1 pg (25.7-33.7) 01/26/19 10:25 MCHC 33.7 g/dl (32.0-36.0) 01/26/19 10:25 RDW 14.9 % (11.6-15.6) 01/26/19 10:25 Plt Count 194 K/MM3 (134-434) 01/26/19 10:25 MPV 8.4 fl (7.5-11.1) 01/26/19 10:25 Sodium 143 mmol/L (136-145) 01/28/19 08:00 Potassium 3.8 mmol/L (3.5-5.1) 01/28/19 08:00 Chloride 112 mmol/L (98-107) H 01/28/19 08:00 Carbon Dioxide 25 mmol/L (21-32) 01/28/19 08:00 Anion Gap 6 MMOL/L (8-16) L 01/28/19 08:00 BUN 9.8 mg/dL (7-18) 01/28/19 08:00 Creatinine 0.7 mg/dL (0.55-1.3) 01/28/19 08:00 Est GFR (CKD-EPI)AfAm 126.49 01/28/19 08:00 Est GFR (CKD-EPI)NonAf 109.14 01/28/19 08:00 Random Glucose 90 mg/dL (74-106) 01/28/19 08:00 Calcium 8.7 mg/dL (8.5-10.1) 01/28/19 08:00 Total Bilirubin 0.7 mg/dL (0.2-1) 01/26/19 10:25 AST 19 U/L (15-37) 01/26/19 10:25 ALT 20 U/L (13-61) 01/26/19 10:25 Alkaline Phosphatase 92 U/L (45-117) 01/26/19 10:25 Total Protein 7.6 g/dl (6.4-8.2) 01/26/19 10:25 Albumin 3.9 g/dl (3.4-5.0) 01/26/19 10:25 Urine Color Yellow 01/27/19 15:20 Urine Appearance Clear 01/27/19 15:20 Urine pH 7.0 (5.0-8.0) 01/27/19 15:20 Ur Specific [place] 1.028 (1.010-1.035) 01/27/19 15:20 Urine Protein Trace (NEGATIVE) 01/27/19 15:20 Urine Glucose (UA) Negative (NEGATIVE) 01/27/19 15:20 Urine Ketones Negative (NEGATIVE) 01/27/19 15:20 Urine Blood Negative (NEGATIVE) 01/27/19 15:20 Urine Nitrite Negative (NEGATIVE) 01/27/19 15:20 Urine Bilirubin Negative (NEGATIVE) 01/27/19 15:20 Urine Urobilinogen 1.0 mg/dL (0.2-1.0) 01/27/19 15:20 Ur Leukocyte Esterase Trace (NEGATIVE) 01/27/19 15:20 Urine WBC (Auto) 1 /hpf (0-5) 01/27/19 15:20 Urine RBC (Auto) 1 /hpf (0-4) 01/27/19 15:20 Urine Casts (Auto) 109 /lpf (0-8) 01/27/19 15:20 U Pathogenic Cast Auto Hyaline cast=few /lpf (NEGATIVE) 01/27/19 15:20 U Epithel Cells (Auto) 5.9 /HPF (0-5/HPF) 01/27/19 15:20 Urine Bacteria (Auto) 6.8 /hpf (NEGATIVE) 01/27/19 15:20 POC Urine HCG, Qual Negative 01/26/19 09:31 Valproic Acid 4.1 ug/mL (50-100) L 01/28/19 08:00 RPR Titer Nonreactive (NONREACTIVE) 01/27/19 07:45 Hep C Ab Diagnostic 0.2 s/co ratio (0.0-0.9) 01/26/19 10:25 HIV 1&2 Antibody Screen Negative 01/26/19 10:25 HIV P24 Antigen Negative 01/26/19 10:25 TB (QFT) Incubation (.) 01/26/19 10:25 TB Test (QFT) Nil 0.22 IU/mL (.) 01/26/19 10:25 TB Test (QFT) Mitogen >10.00 IU/mL (.) 01/26/19 10:25 TB Test (QFT) Antigen 0.23 IU/mL (.) 01/26/19 10:25 TB Test (QFT) Negative (Negative) 01/26/19 10:25 TB Positive Criteria (.) 01/26/19 10:25 lab noted Assessment: 01/28/19 14:23 opiate withdrawal sx Plan: continue methadone detox regimen
--- NOTE | 2019-01-28 15:09 | PN ---
Psychiatric Progress Note Vital Signs: Vital Signs Period Temp Pulse Resp BP Sys/Romero Pulse Ox Last 24 Hr 97.1 F-98.3 F 58-72 18-18 96-107/56-75 Date of Session: 01/28/19 Chief Complaint:: " Can you increase my medication." HPI: Patient admitted to for alcohol, heroin, cannabis dependence. Patient requesting an increase in her medications. ROS: Patient is coherent, alert + Oriented X3. Current Medications: Active Medications Generic Name Dose Route Start Last Admin Trade Name Freq PRN Reason Stop Dose Admin Acetaminophen 650 mg 01/26/19 10:26 Tylenol - PO Q6H PRN PAIN LEVEL 4 - 6 Acetaminophen 650 mg 01/26/19 10:26 Tylenol - PO Q6H PRN FEVER Al Hydroxide/Mg Hydroxide 30 ml 01/26/19 10:26 Mylanta Oral Suspension - PO Q6H PRN DYSPEPSIA Albuterol Sulfate 2 puff 01/26/19 10:33 01/28/19 10:25 Ventolin Hfa Inhaler - IH 2 puff Q4H PRN Administration SHORT OF BREATH/WHEEZING Albuterol Sulfate 1 amp 01/27/19 17:37 01/27/19 18:52 Ventolin 0.083% Nebulizer Soln - NEB 1 amp Q4H PRN Administration SHORT OF BREATH/WHEEZING Bismuth Subsalicylate 30 ml 01/26/19 10:26 01/26/19 11:16 Pepto-Bismol Liquid - PO 30 ml Q1H PRN Administration DIARRHEA Budesonide/Formoterol Fumarate 1 puff 01/26/19 22:00 01/28/19 10:25 Symbicort 160/4.5mcg - IH 1 puff BID DENTON Administration Buspirone HCl 10 mg 01/28/19 15:04 Buspar - PO BID DENTON Cephalexin HCl 500 mg 01/26/19 12:00 01/28/19 11:40 Keflex - PO 500 mg Q6HPO DENTON Administration Clonidine 0.1 mg 01/26/19 10:26 Catapres - PO 01/28/19 23:59 Q4H PRN Withdrawal Symptoms Diazepam 10 mg 01/26/19 10:32 01/28/19 14:45 Valium - PO 01/29/19 10:33 10 mg Q4H PRN Administration WITHDRAWAL(CONT SUBST) Divalproex Sodium 500 mg 01/27/19 22:00 01/28/19 10:25 Depakote - PO 500 mg BID DENTON Administration Eucalyptus/Menthol/Phenol/Sorbitol 1 each 01/26/19 10:26 Cepastat Lozenge - MM 02/01/19 10:26 Q4H PRN SORE THROAT Hydroxyzine Pamoate 25 mg 01/26/19 10:26 Vistaril - PO 02/01/19 10:26 Q6H PRN For Anxiety Ibuprofen 400 mg 01/26/19 10:26 Motrin - PO Q6H PRN PAIN LEVEL 1 - 3 Magnesium Citrate 300 ml 01/26/19 10:26 Citroma - PO Q48H PRN CONSTIPATION Magnesium Hydroxide 30 ml 01/26/19 10:26 Milk Of Magnesia - PO PRN PRN CONSTIPATION Melatonin 5 mg 01/26/19 10:26 Melatonin PO HS PRN INSOMNIA Methadone HCl 10 mg/ Methadone 15 mg 01/29/19 10:00 HCl 5 mg PO 01/29/19 10:01 ONCE ONE Methadone HCl 5 mg 01/31/19 06:00 Dolophine - PO 01/31/19 06:01 ONCE@0600 ONE Methadone HCl 10 mg 01/30/19 10:00 Dolophine - PO 01/30/19 10:01 ONCE ONE Methocarbamol 500 mg 01/26/19 10:26 01/28/19 10:28 Robaxin - PO 02/01/19 10:26 500 mg Q6H PRN Administration MUSCLE SPASMS Nicotine 21 mg 01/26/19 19:45 01/28/19 10:26 Nicoderm Patch - TD 21 mg DAILY DENTON Administration Nicotine Polacrilex 2 mg 01/26/19 10:26 Nicorette Gum - BUC Q2H PRN NICOTINE REPLACEMENT RX Multivit/Folic Acid/Iron 1 tab 01/27/19 10:00 01/28/19 10:26 Vitamins (Sjr) - PO 1 tab DAILY DENTON Administration Quetiapine Fumarate 100 mg 01/27/19 22:00 01/27/19 22:14 Seroquel - PO 100 mg HS DENTON Administration Thiamine HCl 100 mg 01/26/19 22:00 01/27/19 22:14 Vitamin B1 - PO 100 mg HS DENTON Administration Medication(s) Change(s): Yes. Current Side Effect: No Lab tests ordered: No Lab tests reviewed: Yes Provider note:: Patient requesting her original doses of her medications. Patient seen by Dr. Driscoll yesterday. Dr. Driscoll note read and appreciated. Patient with a history of bipolar disorder and is provided with outpatient psychiatric care at [facility]. As per patient she is prescribed a regimen of seroquel 200 mg/hs + depakote 750 mg po bid + buspar 10 mg po bid. Patient able to tolerate seroquel 100mg + Depakote 500mg BID. No sedation noted. Medications were reduced due to risk of oversedation. Patient reports medication compliance. Will d/c seroquel 100mg + Depakote 500mg BID + Buspar 5mg BID. Will order Seroquel 200mg + Depakote 750mg BID + Buspar 10mg BID. Benefits and side effects discussed. Verbal consent given. Total face to face time:: 25 Mental Status Exam - Mental Status Exam Alert and Oriented to: Time, Place, Person Cognitive Function: Good Patient Appearance: Well Groomed Mood: Euthymic Affect: Mood Congruent Patient Behavior: Cooperative Speech Pattern: Appropriate Voice Loudness: Normal Thought Process: Goal Oriented Thought Disorder: Not Present Hallucinations: Denies Suicidal Ideation: Denies Homicidal Ideation: Denies Insight/Judgement: Poor Sleep: Poorly Appetite: Fair Muscle strength/Tone: Normal Gait/Station: Normal Psychiatric Treatment Plan - Problem List (1) Opioid dependence with withdrawal Current Visit: Yes (2) Cannabis dependence Current Visit: Yes (3) History of bipolar disorder Current Visit: Yes (4) Insomnia Current Visit: Yes Qualifiers: Insomnia type: unspecified Qualified Code(s): G47.00 - Insomnia, unspecified (5) Nicotine dependence Current Visit: Yes Qualifiers: Nicotine product type: cigarettes Substance use status: uncomplicated Qualified Code(s): F17.210 - Nicotine dependence, cigarettes, uncomplicated (6) PTSD (post-traumatic stress disorder) Current Visit: Yes
[2019-01-28] MEDS ORDERED: DIVALPROEX 500 MG, DIVALPROEX 250 MG PO SCH (15:22)
[2019-01-28] MEDS ORDERED: DIVALPROEX SODIUM 500 MG TABLET E.C. PO SCH (15:22)
[2019-01-28] MEDS: NICOTINE POLACRILEX 2 MG GUM BUC PRN (19:24)
[2019-01-28] MEDS: THIAMINE HCL 100 MG TABLET (FP) PO SCH (22:35)
[2019-01-28] MEDS: busPIRone HCL 10 MG TABLET (FP) PO SCH (22:36)
[2019-01-28] MEDS: QUEtiapine FUMARATE 200 MG TABLET PO SCH (22:37)
[2019-01-28] MEDS: DIVALPROEX 500 MG, DIVALPROEX 250 MG PO SCH (22:37)
[2019-01-29] MEDS: diazePAM 5 MG TABLET PO PRN (07:07)
[2019-01-29] MEDS: CEPHALEXIN MONOHYDRATE 500 MG CAPSULE (UD) PO SCH ×4 (07:07→23:31)
[2019-01-29] MEDS ORDERED: METHADONE HCL 10 MG TABLET (FOR DETOX USE ONLY) ONE (08:29)
[2019-01-29] MEDS ORDERED: METHADONE HCL 5 MG TABLET (FOR DETOX USE ONLY) ONE (08:29)
[2019-01-29] MEDS ORDERED: DIVALPROEX SODIUM 250 MG TABLET E.C. ONE ×2 (08:30→21:44)
[2019-01-29] MEDS ORDERED: DIVALPROEX SODIUM 500 MG TABLET E.C. ONE ×2 (08:30→21:44)
[2019-01-29] MEDS ORDERED: METHADONE (DETOX) 10 MG, METHADONE (DETOX) 5 MG PO ONE (10:00)
[2019-01-29] MEDS: NICOTINE 21 MG/24 HOURS TOPICAL PATCH TD SCH (10:17)
[2019-01-29] MEDS: busPIRone HCL 10 MG TABLET (FP) PO SCH ×2 (10:18→22:17)
[2019-01-29] MEDS: PRENATAL VITAMINS W/ FOLIC ACID TABLET (FP) PO SCH (10:18)
[2019-01-29] MEDS: DIVALPROEX 500 MG, DIVALPROEX 250 MG PO SCH ×2 (10:18→22:17)
[2019-01-29] MEDS: BUDESONIDE/FORMETEROL FUMARATE 160/4.5 mcg INHALER IH SCH ×2 (10:18→22:17)
[2019-01-29] MEDS: METHOCARBAMOL 500 MG TABLET PO PRN ×2 (10:19→22:20)
--- NOTE | 2019-01-29 17:46 | PN ---
BHS COWS - Scale Resting Pulse: 1= [place] 81-100 Sweatin= Chills/Flushing Restless Observation: 1= Difficult to Sit Still Pupil Size: 0= Normal to Room Light Bone or Joint Aches: 2= Severe Diffuse Aches Runny Nose/ Eye Tearin= None GI Upset > 30mins: 0= None Tremor Observation of Outstretched Hands: 0= None Yawning Observation: 1= 1-2x During Session Anxiety or Irritability: 2=Irritable/Anxious Goose Flesh Skin: 3=Piloerection COWS Score: 11 BHS Progress Note (SOAP) Subjective: Anxious, Body Aches, Fatigue, Interrupted Sleep. Objective: PATIENT A & O X 3, OBSERVED AMBULATING ON DETOX UNIT UNASSISTED. IN NO ACUTE DISTRESS. 01/29/19 17:45 Vital Signs Temperature 98.8 F 01/29/19 17:36 Pulse Rate 82 01/29/19 17:36 Respiratory Rate 16 01/29/19 17:36 Blood Pressure 107/70 01/29/19 17:36 O2 Sat by Pulse Oximetry (%) Laboratory Tests 01/26/19 01/26/19 01/26/19 09:31 10:25 10:25 WBC RBC Hgb Hct MCV MCH MCHC RDW Plt Count MPV Sodium Potassium Chloride Carbon Dioxide Anion Gap BUN Creatinine Est GFR (CKD-EPI)AfAm Est GFR (CKD-EPI)NonAf Random Glucose Calcium Total Bilirubin AST ALT Alkaline Phosphatase Total Protein Albumin Urine Color Urine Appearance Urine pH Ur Specific [place] Urine Protein Urine Glucose (UA) Urine Ketones Urine Blood Urine Nitrite Urine Bilirubin Urine Urobilinogen Ur Leukocyte Esterase Urine WBC (Auto) Urine RBC (Auto) Urine Casts (Auto) U Pathogenic Cast Auto U Epithel Cells (Auto) Urine Bacteria (Auto) POC Urine HCG, Qual Negative Valproic Acid RPR Titer Hep C Ab Diagnostic 0.2 HIV 1&2 Antibody Screen Negative HIV P24 Antigen Negative TB (QFT) Incubation TB Test (QFT) Nil TB Test (QFT) Mitogen TB Test (QFT) Antigen TB Test (QFT) TB Positive Criteria 01/26/19 01/26/19 01/26/19 10:25 10:25 10:25 WBC 6.4 RBC 4.75 Hgb 13.8 Hct 41.1 MCV 86.4 MCH 29.1 MCHC 33.7 RDW 14.9 Plt Count 194 MPV 8.4 Sodium 135 L Potassium 4.4 Chloride 104 Carbon Dioxide 23 Anion Gap 8 BUN 14.0 Creatinine 0.8 Est GFR (CKD-EPI)AfAm 107.64 Est GFR (CKD-EPI)NonAf 92.87 Random Glucose 83 Calcium 9.4 Total Bilirubin 0.7 AST 19 ALT 20 Alkaline Phosphatase 92 Total Protein 7.6 Albumin 3.9 Urine Color Urine Appearance Urine pH Ur Specific [place] Urine Protein Urine Glucose (UA) Urine Ketones Urine Blood Urine Nitrite Urine Bilirubin Urine Urobilinogen Ur Leukocyte Esterase Urine WBC (Auto) Urine RBC (Auto) Urine Casts (Auto) U Pathogenic Cast Auto U Epithel Cells (Auto) Urine Bacteria (Auto) POC Urine HCG, Qual Valproic Acid RPR Titer Hep C Ab Diagnostic HIV 1&2 Antibody Screen HIV P24 Antigen TB (QFT) Incubation TB Test (QFT) Nil 0.22 TB Test (QFT) Mitogen >10.00 TB Test (QFT) Antigen 0.23 TB Test (QFT) Negative TB Positive Criteria 01/27/19 01/27/19 01/28/19 07:45 15:20 08:00 WBC RBC Hgb Hct MCV MCH MCHC RDW Plt Count MPV Sodium Potassium Chloride Carbon Dioxide Anion Gap BUN Creatinine Est GFR (CKD-EPI)AfAm Est GFR (CKD-EPI)NonAf Random Glucose Calcium Total Bilirubin AST ALT Alkaline Phosphatase Total Protein Albumin Urine Color Yellow Urine Appearance Clear Urine pH 7.0 Ur Specific [place] 1.028 Urine Protein Trace Urine Glucose (UA) Negative Urine Ketones Negative Urine Blood Negative Urine Nitrite Negative Urine Bilirubin Negative Urine Urobilinogen 1.0 Ur Leukocyte Esterase Trace Urine WBC (Auto) 1 Urine RBC (Auto) 1 Urine Casts (Auto) 109 U Pathogenic Cast Auto Hyaline cast=few U Epithel Cells (Auto) 5.9 Urine Bacteria (Auto) 6.8 POC Urine HCG, Qual Valproic Acid 4.1 L RPR Titer Nonreactive Hep C Ab Diagnostic HIV 1&2 Antibody Screen HIV P24 Antigen TB (QFT) Incubation TB Test (QFT) Nil TB Test (QFT) Mitogen TB Test (QFT) Antigen TB Test (QFT) TB Positive Criteria 01/28/19 08:00 WBC RBC Hgb Hct MCV MCH MCHC RDW Plt Count MPV Sodium 143 Potassium 3.8 Chloride 112 H Carbon Dioxide 25 Anion Gap 6 L BUN 9.8 Creatinine 0.7 Est GFR (CKD-EPI)AfAm 126.49 Est GFR (CKD-EPI)NonAf 109.14 Random Glucose 90 Calcium 8.7 Total Bilirubin AST ALT Alkaline Phosphatase Total Protein Albumin Urine Color Urine Appearance Urine pH Ur Specific [place] Urine Protein Urine Glucose (UA) Urine Ketones Urine Blood Urine Nitrite Urine Bilirubin Urine Urobilinogen Ur Leukocyte Esterase Urine WBC (Auto) Urine RBC (Auto) Urine Casts (Auto) U Pathogenic Cast Auto U Epithel Cells (Auto) Urine Bacteria (Auto) POC Urine HCG, Qual Valproic Acid RPR Titer Hep C Ab Diagnostic HIV 1&2 Antibody Screen HIV P24 Antigen TB (QFT) Incubation TB Test (QFT) Nil TB Test (QFT) Mitogen TB Test (QFT) Antigen TB Test (QFT) TB Positive Criteria LABS NOTED. Assessment: 01/29/19 17:45 WITHDRAWAL SYMPTOMS. Plan: CONTINUE DETOX.
[2019-01-29] MEDS: NICOTINE POLACRILEX 2 MG GUM BUC PRN (21:11)
[2019-01-29] MEDS: QUEtiapine FUMARATE 200 MG TABLET PO SCH (22:17)
[2019-01-29] MEDS: THIAMINE HCL 100 MG TABLET (FP) PO SCH (22:17)
[2019-01-29] MEDS: ALBUTEROL SO4 8 GM HFA INHALER IH PRN (22:18)
[2019-01-30] MEDS: CEPHALEXIN MONOHYDRATE 500 MG CAPSULE (UD) PO SCH ×4 (05:42→23:02)
[2019-01-30] MEDS: METHOCARBAMOL 500 MG TABLET PO PRN ×3 (05:44→17:34)
[2019-01-30] MEDS ORDERED: DIVALPROEX SODIUM 500 MG TABLET E.C. ONE ×2 (09:05→21:24)
[2019-01-30] MEDS ORDERED: DIVALPROEX SODIUM 250 MG TABLET E.C. ONE ×2 (09:06→21:24)
[2019-01-30] MEDS ORDERED: METHADONE HCL 10 MG TABLET (FOR DETOX USE ONLY) PO ONE (10:00)
[2019-01-30] MEDS: ALBUTEROL SO4 8 GM HFA INHALER IH PRN (10:39)
[2019-01-30] MEDS: BUDESONIDE/FORMETEROL FUMARATE 160/4.5 mcg INHALER IH SCH ×2 (10:39→22:07)
[2019-01-30] MEDS: NICOTINE 21 MG/24 HOURS TOPICAL PATCH TD SCH (10:40)
[2019-01-30] MEDS: DIVALPROEX 500 MG, DIVALPROEX 250 MG PO SCH ×2 (10:40→22:08)
[2019-01-30] MEDS: PRENATAL VITAMINS W/ FOLIC ACID TABLET (FP) PO SCH (10:40)
[2019-01-30] MEDS: busPIRone HCL 10 MG TABLET (FP) PO SCH ×2 (10:40→22:08)
--- NOTE | 2019-01-30 16:37 | PN ---
[facility] Progress Note Note: Psychiatry Attending's note (follow-up) : Approached by patient. Reason : request for scripts. Ms Ventura is scheduled for discharge on 01/31/19. She expresses the plan to go home + return for rehabilitation. In a few days. " I have to take care of some personal issues before going to rehab." Patient requests a minimum of 15-day supply of medications (has some at home). Observed as alert and fully oriented. Steady. Visible on unit. Well rested. Sociable. Ms Ventura has considerably improved. Pleasant on approach. Responded well to her medications. Not suicidal or homicidal. Goal-directed. Future-oriented. Euthymic. Bright affect. Baseline mental status. Scripts for buspar 10 mg/bid + depakote 750 mg/bid + seroquel 200 mg/hs sent to [facility] # [id number] (patient's request). VA level on admission = 4.5 (negligible). Repeat requested. Pending.
[2019-01-30] MEDS: NICOTINE POLACRILEX 2 MG GUM BUC PRN ×2 (17:34→20:56)
--- NOTE | 2019-01-30 18:19 | PN ---
BHS COWS - Scale Resting Pulse: 1= [place] 81-100 Sweatin= Chills/Flushing Restless Observation: 1= Difficult to Sit Still Pupil Size: 0= Normal to Room Light Bone or Joint Aches: 1= Mild Discomfort Runny Nose/ Eye Tearin= None GI Upset > 30mins: 0= None Tremor Observation of Outstretched Hands: 0= None Yawning Observation: 1= 1-2x During Session Anxiety or Irritability: 2=Irritable/Anxious Goose Flesh Skin: 0=Smooth Skin COWS Score: 7 BHS Progress Note (SOAP) Subjective: Anxious, Body Aches, Interrupted Sleep. Objective: PATIENT A & O X 3, OBSERVED AMBULATING ON DETOX UNIT UNASSISTED. IN NO ACUTE DISTRESS. 01/30/19 18:19 Vital Signs Temperature 97 F L 01/30/19 17:42 Pulse Rate 85 01/30/19 17:42 Respiratory Rate 18 01/30/19 17:42 Blood Pressure 98/65 01/30/19 17:42 O2 Sat by Pulse Oximetry (%) Laboratory Tests 01/26/19 01/26/19 01/26/19 09:31 10:25 10:25 WBC RBC Hgb Hct MCV MCH MCHC RDW Plt Count MPV Sodium Potassium Chloride Carbon Dioxide Anion Gap BUN Creatinine Est GFR (CKD-EPI)AfAm Est GFR (CKD-EPI)NonAf Random Glucose Calcium Total Bilirubin AST ALT Alkaline Phosphatase Total Protein Albumin Urine Color Urine Appearance Urine pH Ur Specific [place] Urine Protein Urine Glucose (UA) Urine Ketones Urine Blood Urine Nitrite Urine Bilirubin Urine Urobilinogen Ur Leukocyte Esterase Urine WBC (Auto) Urine RBC (Auto) Urine Casts (Auto) U Pathogenic Cast Auto U Epithel Cells (Auto) Urine Bacteria (Auto) POC Urine HCG, Qual Negative Valproic Acid RPR Titer Hep C Ab Diagnostic 0.2 HIV 1&2 Antibody Screen Negative HIV P24 Antigen Negative TB (QFT) Incubation TB Test (QFT) Nil TB Test (QFT) Mitogen TB Test (QFT) Antigen TB Test (QFT) TB Positive Criteria 01/26/19 01/26/19 01/26/19 10:25 10:25 10:25 WBC 6.4 RBC 4.75 Hgb 13.8 Hct 41.1 MCV 86.4 MCH 29.1 MCHC 33.7 RDW 14.9 Plt Count 194 MPV 8.4 Sodium 135 L Potassium 4.4 Chloride 104 Carbon Dioxide 23 Anion Gap 8 BUN 14.0 Creatinine 0.8 Est GFR (CKD-EPI)AfAm 107.64 Est GFR (CKD-EPI)NonAf 92.87 Random Glucose 83 Calcium 9.4 Total Bilirubin 0.7 AST 19 ALT 20 Alkaline Phosphatase 92 Total Protein 7.6 Albumin 3.9 Urine Color Urine Appearance Urine pH Ur Specific [place] Urine Protein Urine Glucose (UA) Urine Ketones Urine Blood Urine Nitrite Urine Bilirubin Urine Urobilinogen Ur Leukocyte Esterase Urine WBC (Auto) Urine RBC (Auto) Urine Casts (Auto) U Pathogenic Cast Auto U Epithel Cells (Auto) Urine Bacteria (Auto) POC Urine HCG, Qual Valproic Acid RPR Titer Hep C Ab Diagnostic HIV 1&2 Antibody Screen HIV P24 Antigen TB (QFT) Incubation TB Test (QFT) Nil 0.22 TB Test (QFT) Mitogen >10.00 TB Test (QFT) Antigen 0.23 TB Test (QFT) Negative TB Positive Criteria 01/27/19 01/27/19 01/28/19 07:45 15:20 08:00 WBC RBC Hgb Hct MCV MCH MCHC RDW Plt Count MPV Sodium Potassium Chloride Carbon Dioxide Anion Gap BUN Creatinine Est GFR (CKD-EPI)AfAm Est GFR (CKD-EPI)NonAf Random Glucose Calcium Total Bilirubin AST ALT Alkaline Phosphatase Total Protein Albumin Urine Color Yellow Urine Appearance Clear Urine pH 7.0 Ur Specific [place] 1.028 Urine Protein Trace Urine Glucose (UA) Negative Urine Ketones Negative Urine Blood Negative Urine Nitrite Negative Urine Bilirubin Negative Urine Urobilinogen 1.0 Ur Leukocyte Esterase Trace Urine WBC (Auto) 1 Urine RBC (Auto) 1 Urine Casts (Auto) 109 U Pathogenic Cast Auto Hyaline cast=few U Epithel Cells (Auto) 5.9 Urine Bacteria (Auto) 6.8 POC Urine HCG, Qual Valproic Acid 4.1 L RPR Titer Nonreactive Hep C Ab Diagnostic HIV 1&2 Antibody Screen HIV P24 Antigen TB (QFT) Incubation TB Test (QFT) Nil TB Test (QFT) Mitogen TB Test (QFT) Antigen TB Test (QFT) TB Positive Criteria 01/28/19 08:00 WBC RBC Hgb Hct MCV MCH MCHC RDW Plt Count MPV Sodium 143 Potassium 3.8 Chloride 112 H Carbon Dioxide 25 Anion Gap 6 L BUN 9.8 Creatinine 0.7 Est GFR (CKD-EPI)AfAm 126.49 Est GFR (CKD-EPI)NonAf 109.14 Random Glucose 90 Calcium 8.7 Total Bilirubin AST ALT Alkaline Phosphatase Total Protein Albumin Urine Color Urine Appearance Urine pH Ur Specific [place] Urine Protein Urine Glucose (UA) Urine Ketones Urine Blood Urine Nitrite Urine Bilirubin Urine Urobilinogen Ur Leukocyte Esterase Urine WBC (Auto) Urine RBC (Auto) Urine Casts (Auto) U Pathogenic Cast Auto U Epithel Cells (Auto) Urine Bacteria (Auto) POC Urine HCG, Qual Valproic Acid RPR Titer Hep C Ab Diagnostic HIV 1&2 Antibody Screen HIV P24 Antigen TB (QFT) Incubation TB Test (QFT) Nil TB Test (QFT) Mitogen TB Test (QFT) Antigen TB Test (QFT) TB Positive Criteria LABS NOTED. Assessment: 01/30/19 18:20 WITHDRAWAL SYMPTOMS. Plan: CONTINUE DETOX. PATIENT SCHEDULED FOR D/C FROM DETOX UNIT TOMORROW.
[2019-01-30] MEDS: QUEtiapine FUMARATE 200 MG TABLET PO SCH (22:08)
[2019-01-30] MEDS: THIAMINE HCL 100 MG TABLET (FP) PO SCH (22:08)
[2019-01-31] MEDS: CEPHALEXIN MONOHYDRATE 500 MG CAPSULE (UD) PO SCH (05:31)
[2019-01-31] MEDS ORDERED: METHADONE HCL 5 MG TABLET (FOR DETOX USE ONLY) PO ONE (06:00)
[2019-01-31 06:26] VITALS: BP 93/58; PULSE 64; TEMP 96.9
[2019-01-31] MEDS ORDERED: busPIRone HCL 10 MG TABLET (FP) PO ONE (08:00)
[2019-01-31] MEDS ORDERED: DIVALPROEX SODIUM 250 MG TABLET E.C. PO ONE (08:00)
--- NOTE | 2019-01-31 13:40 | DS ---
[facility] Detox Discharge Summary Admission Date: 01/26/19 Discharge Date: 01/31/19 - History Present History: Opioid Dependence Additional Comments: 38 yearse old female admitted on 01/26/19 for opiate withdrawal sx patient discharged to the community around 7 am today I have not assessed nor evaluated the patient before discharged - Physical Exam Results Vital Signs: Vital Signs Temperature 96.9 F L 01/31/19 06:26 Pulse Rate 64 01/31/19 06:26 Respiratory Rate 16 01/31/19 06:26 Blood Pressure 93/58 L 01/31/19 06:26 O2 Sat by Pulse Oximetry (%) Pertinent Admission Physical Exam Findings: opiate withdrawal sx Laboratory Last Values WBC 6.4 K/mm3 (4.0-10.0) 01/26/19 10:25 RBC 4.75 M/mm3 (3.60-5.2) 01/26/19 10:25 Hgb 13.8 GM/dL (10.7-15.3) 01/26/19 10:25 Hct 41.1 % (32.4-45.2) 01/26/19 10:25 MCV 86.4 fl (80-96) 01/26/19 10:25 MCH 29.1 pg (25.7-33.7) 01/26/19 10:25 MCHC 33.7 g/dl (32.0-36.0) 01/26/19 10:25 RDW 14.9 % (11.6-15.6) 01/26/19 10:25 Plt Count 194 K/MM3 (134-434) 01/26/19 10:25 MPV 8.4 fl (7.5-11.1) 01/26/19 10:25 Sodium 143 mmol/L (136-145) 01/28/19 08:00 Potassium 3.8 mmol/L (3.5-5.1) 01/28/19 08:00 Chloride 112 mmol/L (98-107) H 01/28/19 08:00 Carbon Dioxide 25 mmol/L (21-32) 01/28/19 08:00 Anion Gap 6 MMOL/L (8-16) L 01/28/19 08:00 BUN 9.8 mg/dL (7-18) 01/28/19 08:00 Creatinine 0.7 mg/dL (0.55-1.3) 01/28/19 08:00 Est GFR (CKD-EPI)AfAm 126.49 01/28/19 08:00 Est GFR (CKD-EPI)NonAf 109.14 01/28/19 08:00 Random Glucose 90 mg/dL (74-106) 01/28/19 08:00 Calcium 8.7 mg/dL (8.5-10.1) 01/28/19 08:00 Total Bilirubin 0.7 mg/dL (0.2-1) 01/26/19 10:25 AST 19 U/L (15-37) 01/26/19 10:25 ALT 20 U/L (13-61) 01/26/19 10:25 Alkaline Phosphatase 92 U/L (45-117) 01/26/19 10:25 Total Protein 7.6 g/dl (6.4-8.2) 01/26/19 10:25 Albumin 3.9 g/dl (3.4-5.0) 01/26/19 10:25 Urine Color Yellow 01/27/19 15:20 Urine Appearance Clear 01/27/19 15:20 Urine pH 7.0 (5.0-8.0) 01/27/19 15:20 Ur Specific [place] 1.028 (1.010-1.035) 01/27/19 15:20 Urine Protein Trace (NEGATIVE) 01/27/19 15:20 Urine Glucose (UA) Negative (NEGATIVE) 01/27/19 15:20 Urine Ketones Negative (NEGATIVE) 01/27/19 15:20 Urine Blood Negative (NEGATIVE) 01/27/19 15:20 Urine Nitrite Negative (NEGATIVE) 01/27/19 15:20 Urine Bilirubin Negative (NEGATIVE) 01/27/19 15:20 Urine Urobilinogen 1.0 mg/dL (0.2-1.0) 01/27/19 15:20 Ur Leukocyte Esterase Trace (NEGATIVE) 01/27/19 15:20 Urine WBC (Auto) 1 /hpf (0-5) 01/27/19 15:20 Urine RBC (Auto) 1 /hpf (0-4) 01/27/19 15:20 Urine Casts (Auto) 109 /lpf (0-8) 01/27/19 15:20 U Pathogenic Cast Auto Hyaline cast=few /lpf (NEGATIVE) 01/27/19 15:20 U Epithel Cells (Auto) 5.9 /HPF (0-5/HPF) 01/27/19 15:20 Urine Bacteria (Auto) 6.8 /hpf (NEGATIVE) 01/27/19 15:20 POC Urine HCG, Qual Negative 01/26/19 09:31 Valproic Acid 4.1 ug/mL (50-100) L 01/28/19 08:00 RPR Titer Nonreactive (NONREACTIVE) 01/27/19 07:45 Hep C Ab Diagnostic 0.2 s/co ratio (0.0-0.9) 01/26/19 10:25 HIV 1&2 Antibody Screen Negative 01/26/19 10:25 HIV P24 Antigen Negative 01/26/19 10:25 TB (QFT) Incubation (.) 01/26/19 10:25 TB Test (QFT) Nil 0.22 IU/mL (.) 01/26/19 10:25 TB Test (QFT) Mitogen >10.00 IU/mL (.) 01/26/19 10:25 TB Test (QFT) Antigen 0.23 IU/mL (.) 01/26/19 10:25 TB Test (QFT) Negative (Negative) 01/26/19 10:25 TB Positive Criteria (.) 01/26/19 10:25 lab noted - Treatment Hospital Course: Detox Protocol Followed, Detoxed Safely, Responded well (chart reviewed), Discharged Condition Good (nursing report), Rehab Referral Accepted Patient [facility] - Medication Discharge Medications: Ambulatory Orders Buspirone HCl [Buspar -] 10 mg PO BID #60 tablet 03/05/18 Divalproex *ER* [Depakote *ER* -] 750 mg PO BID #60 tablet.sa 03/05/18 Quetiapine Fumarate [Seroquel -] 200 mg PO HS #30 tablet 07/02/18 Naloxone HCl [Narcan] 4 mg NS ASDIR PRN #1 spray 01/28/19 Albuterol Sulfate Inhaler - [Ventolin HFA Inhaler -] 2 inh PO Q4H PRN #1 inhaler 01/30/19 Budesonide/Formeterol Fumarate [SYMBICORT 160/4.5mcg -] 1 inh IH BID #1 inhaler 01/30/19 Buspirone HCl [Buspar -] 10 mg PO BID #30 tablet 01/30/19 Cephalexin [Keflex] 500 mg PO TID 5 Days #15 capsule 01/30/19 Divalproex [Depakote -] 250 mg PO BID #30 tablet.ec 01/30/19 Divalproex [Depakote -] 500 mg PO BID #30 tablet.ec 01/30/19 Naloxone HCl [Narcan] 4 mg NS ASDIR #1 kit 01/30/19 Quetiapine Fumarate [Seroquel -] 200 mg PO HS #20 tab 01/30/19 - Diagnosis (1) Opioid dependence with withdrawal Status: Acute (2) Nicotine dependence Status: Acute Qualifiers: Nicotine product type: cigarettes Substance use status: in withdrawal Qualified Code(s): F17.213 - Nicotine dependence, cigarettes, with withdrawal (3) Use of cane as ambulatory aid Status: Chronic - AMA Did Patient Leave Against Medical Advice: No
== END 2019-01-31 06:48 | disposition home or self-care (01) | DRG 897 ==
LOC: YASAS 08:23 → Y3N 10:36
PROVIDERS: ADMIT Surgery; ATTEND Surgery
PROC: HZ2ZZZZ Detoxification Services for Substance Abuse Treatment (ICD-10-PCS; principal; 2019-01-26)
DX: F11.23 Opioid dependence with withdrawal (principal); L03.114 Cellulitis of left upper limb; L02.414 Cutaneous abscess of left upper limb; F12.20 Cannabis dependence, uncomplicated; F17.213 Nicotine dependence, cigarettes, with withdrawal; F43.10 Post-traumatic stress disorder, unspecified; F19.24 Other psychoactive substance dependence with psychoactive substance-induced mood disorder; J45.40 Moderate persistent asthma, uncomplicated; G47.00 Insomnia, unspecified; R63.4 Abnormal weight loss; M50.20 Other cervical disc displacement, unspecified cervical region; M51.26 Other intervertebral disc displacement, lumbar region; R26.2 Difficulty in walking, not elsewhere classified; Z99.89 Dependence on other enabling machines and devices; Z88.8 Allergy status to other drugs, medicaments and biological substances; Z91.5 Personal history of self-harm; Z59.0 Homelessness
CPT/HCPCS: 36415; 80048; 80053; 80164; 81003; 81025; 85027; 86480; 86593; 86803; 87389; 94640

== ENCOUNTER 2019-07-26 10:15 | Inpatient (IN) | payer OTHER ==
--- NOTE | 2019-07-26 10:30 | BHS.RME ---
Substance Use & Tx History - Substance Use History Opiates (Heroin) Substance amount: 2 bundles Frequency of use: Daily Substance route: Injection (ex: intravenous or skin popping) Date of Last Use: 07/26/19 (5am) Cannabis Substance amount: 2-3 blunts Frequency of use: Daily Substance route: Smoking Date of Last Use: 07/26/19 (5am) Physical/Psych/Mental Status - Behavior General Behavior: Increased activity (restlessness, agitation) Eye Contact: Normal - Cooperativeness Cooperativeness: Cooperative - Thinking Thought Processes: Tight, Logical, Goal Directed Thought content: Future oriented - Physical Health Problems Is patient presently having any pain?: No Does patient presently have any injuries (include location): No Does patient currently have a fever: No Is patient : No COWS - Scale Resting Pulse: 1= [place] 81-100 Sweatin= Chills/Flushing Restless Observation: 3= Extraneous Movement Pupil Size: 1= Pupils >than Normal Bone or Joint Aches: 1= Mild Discomfort Runny Nose/ Eye Tearin= Nasal Congestion GI Upset > 30mins: 1= Stomach Cramp Tremor Observation: 1= Tremor [place], Not Seen Yawning Observation: 0= None Anxiety or Irritability: 0= None Goose Flesh Skin: 0=Smooth Skin (not yet in full withdrawals due to use at 5am today.) COWS Score: 10
[2019-07-26 11:38] VITALS: BMI 24.1
--- NOTE | 2019-07-26 11:55 | HP ---
COWS - Scale Resting Pulse: 1= [place] 81-100 Sweatin= Chills/Flushing Restless Observation: 3= Extraneous Movement Pupil Size: 1= Pupils >than Normal Bone or Joint Aches: 1= Mild Discomfort Runny Nose/ Eye Tearin= Nasal Congestion GI Upset > 30mins: 1= Stomach Cramp Tremor Observation: 1= Tremor [place], Not Seen Yawning Observation: 0= None Anxiety or Irritability: 0= None Goose Flesh Skin: 0=Smooth Skin (not yet in full withdrawals due to use at 5am today.) COWS Score: 10 CIWA Score - Admission Criteria OASAS Guidelines: Admission for Medically Managed Detox: Requires at least one of the followin. CIWA greater than 12 2. Seizures within the past 24 hours 3. Delirium tremens within the past 24 hours 4. Hallucinations within the past 24 hours 5. Acute intervention needed for co occurring medical disorder 6. Acute intervention needed for co occurring psychiatric disorder 7. Severe withdrawal that cannot be handled at a lower level of care (continued vomiting, continued diarrhea, abnormal vital signs) requiring intravenous medication and/or fluids 8. Admitting History and Physical - Admission Chief Complaint: Ms. Ventura presents to [facility] stating " I want to stop and I want this to be the last time". History of Present Illness: Ms. Ventura presents to [facility] stating " I want to stop and I want this to be the last time". She was last here between January 26 and Jan 31, 2019. She ocmpleted detox and there were no Rehab beds available. She relapsed within one day of discharge, using heroin and marijuana. PMH: Asthma, on 2 inhalers, herniated cervical, thoracic and lumbar discs PSH: tubal ligation 2001 Psych: depression, bipolar, anxiety, on Depakote 750 bid, Buspar 10 BID, Seroquel 200 mg qhs SOC: domiciled, has a room, on SSD Legal: none Substance use hx Heroin: 2 bundles, IV, frist use age 25y, lat use 07/25 at 5 am. No hx of OD Cannabis: 2-3 blunts per day, last use 07/25, first use age 13 y Nicotine: one ppd since age 9y History Source: Patient Limitations to Obtaining History: No Limitations - Past Medical History ...LMP: 06/09/19 - Smoking History Smoking history: Current every day smoker Have you smoked in the past 12 months: Yes Aproximately how many cigarettes per day: 20 - Alcohol/Substance Use Hx Alcohol Use: No Admission ROS BHS - HPI Allergies/Adverse Reactions: Allergies Allergy/AdvReac Type Severity Reaction Status Date / Time diphenhydramine HCl Allergy Severe Swelling Verified 07/26/19 11:33 [From Benadryl] sulfamethoxazole Allergy Severe Swelling Verified 07/26/19 11:33 [From Bactrim] Exam Limitations: No Limitations - Ebola screening Have you traveled outside of the country in the last 21 days: No Have you been sick,other than usual withdrawal symptoms: No Do you have a fever: No - Review of Systems Constitutional: No Symptoms Reported, Unexplained wgt Loss (ten pound loss in 3 weeks) EENT: reports: Blurred Vision (has her own glasses for both reading and distance) Respiratory: reports: Cough Cardiac: reports: No Symptoms Reported GI: reports: Poor Appetite : reports: No Symptoms Reported Musculoskeletal: reports: Back Pain Integumentary: reports: No Symptoms Reported Neuro: reports: No Symptoms reported Endocrine: reports: No Symptoms Reported Hematology: reports: No Symptoms Reported Psychiatric: reports: Anxious, Depressed Patient History - Patient Medical History Hx Anemia: No Hx Asthma: Yes (Pt. is on SYMBICORT and MDI (PRN).) Hx Chronic Obstructive Pulmonary Disease (COPD): No Hx Cancer: No Hx Cardiac Disorders: No Hx Congestive Heart Failure: No Hx Hypertension: No Hx Hypercholesterolemia: No Hx Pacemaker: No HX Cerebrovascular Accident: No Hx Seizures: No Hx Dementia: No Hx Diabetes: No Hx Gastrointestinal Disorders: No Hx Liver Disease: No Hx Genitourinary Disorders: No Hx Sexually Transmitted Disorders: No Hx Renal Disease (ESRD): No Hx Thyroid Disease: No Hx Human Immunodeficiency Virus (HIV): No (last 06/23 negative) Hx Hepatitis C: No (LAST TESTED IN 05/2016: NEGATIVE.) Hx Depression: Yes (Hospitalized two years ago ([place], [place] Hx Suicide Attempt: Yes (tried to slit wrist APPROX. 4 yearS ago; PATIENT DENIES SI / HI.) Hx Bipolar Disorder: Yes (Takes Medication.) Hx Schizophrenia: No Other Medical History: multi level herniated discs - Patient Surgical History Past Surgical History: Yes Hx Neurologic Surgery: No Hx Cataract Extraction: No Hx Cardiac Surgery: No Hx Lung Surgery: No Hx Breast Surgery: No Hx Breast Biopsy: No Hx Abdominal Surgery: Yes (tubal ligation 2001) Hx Appendectomy: No Hx Cholecystectomy: No Hx Genitourinary Surgery: No Hx Section: No Hx Orthopedic Surgery: No Hx Hysterectomy: No Other Surgical History: Tubal ligation in 2001. Anesthesia Reaction: No - PPD History Previous Implant?: Yes Documented Results: Negative w/proof Date: 08/21/17 Results: QUANTI (-)01/21 - Reproductive History Last Menstrual Period: 06/09/19 - Smoking Cessation Smoking history: Current every day smoker Have you smoked in the past 12 months: Yes Aproximately how many cigarettes per day: 20 Cigars Per Day: 0 Hx Chewing Tobacco Use: No Initiated information on smoking cessation: Yes 'Breaking Loose' booklet given: 07/26/19 - Substances abused Heroin Substance route: Injection Frequency: Daily Amount used: 2 BUNDLES Age of first use: 25 Date of last use: 07/26/19 Marijuana/Hashish Substance route: Smoking Amount used: 2 to 3 blunts Age of first use: 13 Date of last use: 07/26/19 Admission Physical Exam [facility] - Vital Signs Vital Signs: Vital Signs - 24 hr 07/26/19 11:36 Temperature 97.1 F L Pulse Rate 66 Respiratory 12 Rate Blood Pressure 90/60 - Physical General Appearance: Yes: Within Normal Limits HEENTM: Yes: Hearing grossly Normal, Normocephalic, Normal Voice Respiratory: Yes: Wheezing Neck: Yes: Within Normal Limits Breast: Yes: Breast Exam Deferred Cardiology: Yes: Gallop/S3 Abdominal: Yes: Normal Bowel Sounds, Non Tender, Flat, Soft Back: Yes: Normal Inspection Musculoskeletal: Yes: Within Normal Limits Extremities: Yes: Within Normal Limits Neurological: Yes: Alert Integumentary: Yes: Track [place] (clean, no sign of infection) Lymphatic: Yes: Within Normal Limits Cleared for Admission [facility] - Detox or Rehab [facility] Level of Care: Medically Managed Detox Regimen/Protocol: Methadone Breathalyzer - Breathalyzer Breathalyzer: 0 Urine Drug Screen - Test Device Lot number: [id number] Expiration date: 01/02/21 - Control Is test valid?: Yes - Results Drug screen NEGATIVE: No Urine drug screen results: THC-Marijuana, FEN-Fentanyl, MOP-Opiates Inpatient Rehab Admission - Rehab Decision to Admit Inpatient rehab admission?: No
[2019-07-26] MEDS ORDERED: MENTHOL/PHENOL 1 EACH UD MM PRN (12:00)
[2019-07-26] MEDS ORDERED: cloNIDine HCL 0.1 MG TABLET PO PRN (12:00)
[2019-07-26] MEDS ORDERED: MAGNESIUM HYDROX 2400MG/30ML ORAL SUSPENSION 30 ML CUP PO PRN (12:00)
[2019-07-26] MEDS ORDERED: NICOTINE POLACRILEX 2 MG GUM BUC PRN (12:00)
[2019-07-26] MEDS ORDERED: BISMUTH SUBSALICYLATE 524 MG/30 ML UD PO PRN (12:00)
[2019-07-26] MEDS ORDERED: IBUPROFEN 400 MG TABLET (FP) PO PRN (12:00)
[2019-07-26] MEDS ORDERED: MAGNESIUM CITRATE 300 ML BOTTLE PO PRN (12:00)
[2019-07-26] MEDS ORDERED: ACETAMINOPHEN 325 MG TABLET (FP) PO PRN ×2 (12:00)
[2019-07-26] MEDS ORDERED: MAG HYDROX/AL HYDROX/SIMETH 30 ML UNIT-DOSE CUP PO PRN (12:00)
[2019-07-26] MEDS ORDERED: MOMETASONE FUROATE 110 MCG/IH INHALER IH SCH (12:30)
[2019-07-26] MEDS ORDERED: ONDANSETRON *ODT* 4 MG TABLET SL ONE (13:30)
[2019-07-26] MEDS: NICOTINE 21 MG/24 HOURS TOPICAL PATCH TD SCH (13:43)
[2019-07-26] MEDS ORDERED: METHADONE HCL 10 MG TABLET (FOR DETOX USE ONLY) PO ONE (14:00)
[2019-07-26] MEDS ORDERED: hydrOXYzine PAMOATE 25 MG CAPSULE (FP) PO SCH (14:00)
[2019-07-26] MEDS: BUDESONIDE/FORMETEROL FUMARATE 160/4.5 mcg INHALER IH SCH ×2 (14:17→22:21)
[2019-07-26] MEDS: diazePAM 5 MG TABLET PO PRN ×2 (15:05→19:10)
[2019-07-26] MEDS: METHOCARBAMOL 500 MG TABLET PO PRN (15:05)
[2019-07-26 20:53] LABS: HEMATOCRIT 40.9 % (32.4-45.2); HEMOGLOBIN 13.8 GM/dL (10.7-15.3); MCH 30.6 pg (25.7-33.7); MCHC 33.8 g/dl (32.0-36.0); MEAN CELL VOLUME 90.6 fl (80-96); MEAN PLT VOLUME 8.6 fl (7.5-11.1); PLATELET COUNT 180 K/MM3 (134-434); RBC 4.51 M/mm3 (3.60-5.2); RDW 13.8 % (11.6-15.6)
[2019-07-26 21:18] LABS: ALBUMIN 3.6 g/dl (3.4-5.0); BLOOD UREA NITROGEN 8.4 mg/dL (7-18); CALCIUM 8.7 mg/dL (8.5-10.1); CREATININE 0.8 mg/dL (0.55-1.3); TOT PROT 7.2 g/dl (6.4-8.2)
[2019-07-26] MEDS: MELATONIN 5 MG TABLETS PO SCH (22:21)
[2019-07-26] MEDS: THIAMINE HCL 100 MG TABLET (FP) PO SCH (22:22)
[2019-07-26] MEDS: hydrOXYzine PAMOATE 25 MG CAPSULE (FP) PO PRN (22:23)
[2019-07-27] MEDS: METHOCARBAMOL 500 MG TABLET PO PRN (08:25)
[2019-07-27] MEDS: diazePAM 5 MG TABLET PO PRN ×4 (08:25→22:25)
[2019-07-27] MEDS ORDERED: METHADONE HCL 5 MG TABLET (FOR DETOX USE ONLY) ONE (08:44)
[2019-07-27] MEDS ORDERED: METHADONE HCL 10 MG TABLET (FOR DETOX USE ONLY) ONE (08:44)
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
[2019-07-27] MEDS ORDERED: DIVALPROEX SODIUM 250 MG TABLET E.C. PO SCH (10:00)
[2019-07-27] MEDS ORDERED: METHADONE (DETOX) 20 MG, METHADONE (DETOX) 5 MG PO ONE (10:00)
[2019-07-27] MEDS ORDERED: DIVALPROEX NA *ER* EXTEND REL 250 MG TABLET.SA PO SCH (10:00)
[2019-07-27] MEDS: busPIRone HCL 10 MG TABLET (FP) PO SCH ×2 (10:30→22:20)
[2019-07-27] MEDS: PRENATAL VITAMINS W/ FOLIC ACID TABLET (FP) PO SCH (10:30)
[2019-07-27] MEDS: DIVALPROEX 500 MG, DIVALPROEX 250 MG PO SCH ×2 (10:30→22:20)
[2019-07-27] MEDS: NICOTINE 21 MG/24 HOURS TOPICAL PATCH TD SCH (10:31)
[2019-07-27] MEDS: BUDESONIDE/FORMETEROL FUMARATE 160/4.5 mcg INHALER IH SCH ×2 (10:31→22:26)
[2019-07-27] MEDS: hydrOXYzine PAMOATE 25 MG CAPSULE (FP) PO PRN (10:33)
[2019-07-27] MEDS ORDERED: FLU VACCINE QUAD 60 MCG/0.5 ML (MDV 19-20) IM ONE (12:00)
[2019-07-27] MEDS ORDERED: IBUPROFEN 400 MG TABLET (FP) PO PRN (13:49)
--- NOTE | 2019-07-27 14:19 | PN ---
[facility] COWS - Scale Resting Pulse: 0= [place] 80 or Below Sweatin= Chills/Flushing Restless Observation: 1= Difficult to Sit Still Pupil Size: 0= Normal to Room Light Bone or Joint Aches: 2= Severe Diffuse Aches Runny Nose/ Eye Tearin= Runny Nose/Eyes GI Upset > 30mins: 0= None Tremor Observation of Outstretched Hands: 1= Tremor [place], Not Seen Yawning Observation: 1= 1-2x During Session Anxiety or Irritability: 1=Feels Anxious/Irritable Goose Flesh Skin: 0=Smooth Skin COWS Score: 9 S Progress Note (SOAP) Subjective: back pain sweats shakes interrupted sleep muscle aches teary eyes/nasal congestions Objective: 07/27/19 14:17 Vital Signs Temperature 98.1 F 07/27/19 12:34 Pulse Rate 66 07/27/19 12:34 Respiratory Rate 18 07/27/19 12:34 Blood Pressure 110/65 07/27/19 12:34 O2 Sat by Pulse Oximetry (%) 97 07/27/19 12:34 Laboratory Tests 07/26/19 07/26/19 07/26/19 11:24 12:05 12:05 WBC RBC Hgb Hct MCV MCH MCHC RDW Plt Count MPV Sodium 139 Potassium 4.0 Chloride 108 H Carbon Dioxide 26 Anion Gap 6 L BUN 8.4 Creatinine 0.8 Est GFR (CKD-EPI)AfAm 107.64 Est GFR (CKD-EPI)NonAf 92.87 Random Glucose 71 L Calcium 8.7 Total Bilirubin 1.0 AST 22 ALT 30 Alkaline Phosphatase 84 Total Protein 7.2 Albumin 3.6 POC Urine HCG, Qual Negative Syphilis Serology HIV Ag/Ab Combo Qual Negative 07/26/19 07/26/19 12:05 12:05 WBC 5.0 RBC 4.51 Hgb 13.8 Hct 40.9 MCV 90.6 MCH 30.6 MCHC 33.8 RDW 13.8 Plt Count 180 MPV 8.6 Sodium Potassium Chloride Carbon Dioxide Anion Gap BUN Creatinine Est GFR (CKD-EPI)AfAm Est GFR (CKD-EPI)NonAf Random Glucose Calcium Total Bilirubin AST ALT Alkaline Phosphatase Total Protein Albumin POC Urine HCG, Qual Syphilis Serology Non-reactive HIV Ag/Ab Combo Qual aaox3 ambulating no acute distress Assessment: 07/27/19 14:18 withdrawals Plan: flexril prn d/c roboxin lidocaine patch motrin increased continue detox
[2019-07-27] MEDS: LIDOCAINE 5% TOPICAL PATCH TP SCH (14:25)
[2019-07-27] MEDS ORDERED: QUEtiapine FUMARATE 200 MG TABLET ONE (20:51)
[2019-07-27] MEDS ORDERED: DIVALPROEX SODIUM 500 MG TABLET E.C. ONE (20:51)
[2019-07-27] MEDS ORDERED: DIVALPROEX SODIUM 250 MG TABLET E.C. ONE (20:51)
[2019-07-27] MEDS ORDERED: QUEtiapine FUMARATE 50 MG TABLET ONE (20:51)
[2019-07-27] MEDS ORDERED: QUEtiapine FUMARATE 200 MG TABLET PO SCH (22:00)
[2019-07-27] MEDS: QUETIAPINE FUMARATE 50 MG, QUETIAPINE FUMARATE 200 MG PO SCH (22:21)
[2019-07-27] MEDS: MELATONIN 5 MG TABLETS PO SCH (22:21)
[2019-07-27] MEDS: THIAMINE HCL 100 MG TABLET (FP) PO SCH (22:21)
[2019-07-27] MEDS: CYCLOBENZAPRINE HCL 10 MG TABLET (FP) PO PRN (22:25)
[2019-07-27] MEDS: LIDOCAINE PATCH REMOVAL MC SCH (22:27)
[2019-07-28] MEDS ORDERED: DIVALPROEX SODIUM 250 MG TABLET E.C. ONE ×2 (08:55→20:57)
[2019-07-28] MEDS ORDERED: DIVALPROEX SODIUM 500 MG TABLET E.C. ONE ×2 (08:55→20:57)
[2019-07-28] MEDS ORDERED: METHADONE HCL 10 MG TABLET (FOR DETOX USE ONLY) PO ONE (10:00)
[2019-07-28] MEDS: DIVALPROEX 500 MG, DIVALPROEX 250 MG PO SCH ×2 (10:12→22:18)
[2019-07-28] MEDS: LIDOCAINE 5% TOPICAL PATCH TP SCH (10:12)
[2019-07-28] MEDS: NICOTINE 21 MG/24 HOURS TOPICAL PATCH TD SCH (10:12)
[2019-07-28] MEDS: PRENATAL VITAMINS W/ FOLIC ACID TABLET (FP) PO SCH (10:12)
[2019-07-28] MEDS: busPIRone HCL 10 MG TABLET (FP) PO SCH ×2 (10:12→22:18)
[2019-07-28] MEDS: CYCLOBENZAPRINE HCL 10 MG TABLET (FP) PO PRN (10:14)
[2019-07-28] MEDS: diazePAM 5 MG TABLET PO PRN ×2 (10:14→16:53)
[2019-07-28] MEDS: BUDESONIDE/FORMETEROL FUMARATE 160/4.5 mcg INHALER IH SCH ×2 (10:17→22:18)
[2019-07-28] MEDS ORDERED: SODIUM CHLORIDE NASAL SPRAY 44 ML BOTTLE NS PRN (11:04)
--- NOTE | 2019-07-28 11:04 | PN ---
BHS COWS - Scale Resting Pulse: 0= [place] 80 or Below Sweatin= Chills/Flushing Restless Observation: 1= Difficult to Sit Still Pupil Size: 0= Normal to Room Light Bone or Joint Aches: 1= Mild Discomfort Runny Nose/ Eye Tearin= Nasal Congestion GI Upset > 30mins: 0= None Tremor Observation of Outstretched Hands: 1= Tremor [place], Not Seen Yawning Observation: 1= 1-2x During Session Anxiety or Irritability: 1=Feels Anxious/Irritable Goose Flesh Skin: 0=Smooth Skin COWS Score: 7 BHS Progress Note (SOAP) Subjective: low back pain sweats diarrhea nasal congestion body aches Objective: 07/28/19 11:03 Vital Signs Temperature 98.9 F 07/28/19 09:00 Pulse Rate 75 07/28/19 09:00 Respiratory Rate 19 07/28/19 09:00 Blood Pressure 101/62 07/28/19 09:00 O2 Sat by Pulse Oximetry (%) 98 07/28/19 06:05 Laboratory Tests 07/26/19 07/26/19 07/26/19 11:24 12:05 12:05 WBC RBC Hgb Hct MCV MCH MCHC RDW Plt Count MPV Sodium 139 Potassium 4.0 Chloride 108 H Carbon Dioxide 26 Anion Gap 6 L BUN 8.4 Creatinine 0.8 Est GFR (CKD-EPI)AfAm 107.64 Est GFR (CKD-EPI)NonAf 92.87 Random Glucose 71 L Calcium 8.7 Total Bilirubin 1.0 AST 22 ALT 30 Alkaline Phosphatase 84 Total Protein 7.2 Albumin 3.6 POC Urine HCG, Qual Negative Valproic Acid Syphilis Serology HIV Ag/Ab Combo Qual Negative 07/26/19 07/26/19 07/28/19 12:05 12:05 07:30 WBC 5.0 RBC 4.51 Hgb 13.8 Hct 40.9 MCV 90.6 MCH 30.6 MCHC 33.8 RDW 13.8 Plt Count 180 MPV 8.6 Sodium Potassium Chloride Carbon Dioxide Anion Gap BUN Creatinine Est GFR (CKD-EPI)AfAm Est GFR (CKD-EPI)NonAf Random Glucose Calcium Total Bilirubin AST ALT Alkaline Phosphatase Total Protein Albumin POC Urine HCG, Qual Valproic Acid 75.0 Syphilis Serology Non-reactive HIV Ag/Ab Combo Qual labs noted aaox3 ambulating no acute distress Assessment: 07/28/19 11:03 withdrawals Plan: continue detox increase fluids lidocaine patch muscle relaxants motrin/tylenol valium prn pepto prn actifed prn
[2019-07-28] MEDS: ONDANSETRON *ODT* 4 MG TABLET SL PRN ×2 (14:36→21:25)
[2019-07-28] MEDS ORDERED: QUEtiapine FUMARATE 50 MG TABLET ONE (20:56)
[2019-07-28] MEDS ORDERED: QUEtiapine FUMARATE 200 MG TABLET ONE (20:57)
[2019-07-28] MEDS: QUETIAPINE FUMARATE 50 MG, QUETIAPINE FUMARATE 200 MG PO SCH (22:18)
[2019-07-28] MEDS: THIAMINE HCL 100 MG TABLET (FP) PO SCH (22:18)
[2019-07-28] MEDS: LIDOCAINE PATCH REMOVAL MC SCH (22:22)
[2019-07-28] MEDS: MELATONIN 5 MG TABLETS PO SCH (22:23)
[2019-07-29] MEDS: diazePAM 5 MG TABLET PO PRN ×2 (01:37→09:42)
[2019-07-29] MEDS: CYCLOBENZAPRINE HCL 10 MG TABLET (FP) PO PRN ×3 (01:38→22:07)
[2019-07-29] MEDS: hydrOXYzine PAMOATE 25 MG CAPSULE (FP) PO PRN (06:19)
[2019-07-29] MEDS: ONDANSETRON *ODT* 4 MG TABLET SL PRN (06:19)
[2019-07-29] MEDS ORDERED: METHADONE HCL 10 MG TABLET (FOR DETOX USE ONLY) ONE (08:59)
[2019-07-29] MEDS ORDERED: METHADONE HCL 5 MG TABLET (FOR DETOX USE ONLY) ONE (08:59)
[2019-07-29] MEDS ORDERED: DIVALPROEX SODIUM 500 MG TABLET E.C. ONE ×2 (09:00→21:01)
[2019-07-29] MEDS ORDERED: DIVALPROEX SODIUM 250 MG TABLET E.C. ONE ×2 (09:00→21:01)
[2019-07-29] MEDS: DIVALPROEX 500 MG, DIVALPROEX 250 MG PO SCH ×2 (09:37→22:07)
[2019-07-29] MEDS: busPIRone HCL 10 MG TABLET (FP) PO SCH ×2 (09:37→22:07)
[2019-07-29] MEDS: LIDOCAINE 5% TOPICAL PATCH TP SCH (09:38)
[2019-07-29] MEDS ORDERED: METHADONE (DETOX) 10 MG, METHADONE (DETOX) 5 MG PO ONE (10:00)
[2019-07-29] MEDS ORDERED: MELATONIN 5 MG TABLETS PO PRN (10:02)
[2019-07-29] MEDS ORDERED: COLLOIDAL OATMEAL 1 BAR EACH TP ONE (10:04)
[2019-07-29] MEDS ORDERED: PROCHLORPERAZINE MALEATE 5 MG TABLET PO PRN (10:06)
--- NOTE | 2019-07-29 10:18 | PN ---
BHS COWS - Scale Resting Pulse: 0= [place] 80 or Below Sweatin= Chills/Flushing Restless Observation: 1= Difficult to Sit Still Pupil Size: 0= Normal to Room Light Bone or Joint Aches: 1= Mild Discomfort Runny Nose/ Eye Tearin= None GI Upset > 30mins: 2= Nausea/Diarrhea Tremor Observation of Outstretched Hands: 1= Tremor [place], Not Seen Yawning Observation: 0= None Anxiety or Irritability: 2=Irritable/Anxious Goose Flesh Skin: 0=Smooth Skin COWS Score: 8 BHS Progress Note (SOAP) Subjective: nausea sweats some kind of rash/or bruising noticed on my skin body aches diarrhea Objective: 07/29/19 10:20 Vital Signs Temperature 97.7 F 07/29/19 08:30 Pulse Rate 83 07/29/19 08:30 Respiratory Rate 18 07/29/19 08:30 Blood Pressure 104/60 07/29/19 08:30 O2 Sat by Pulse Oximetry (%) 98 07/29/19 06:04 Laboratory Tests 07/26/19 07/26/19 07/26/19 11:24 12:05 12:05 WBC RBC Hgb Hct MCV MCH MCHC RDW Plt Count MPV Sodium 139 Potassium 4.0 Chloride 108 H Carbon Dioxide 26 Anion Gap 6 L BUN 8.4 Creatinine 0.8 Est GFR (CKD-EPI)AfAm 107.64 Est GFR (CKD-EPI)NonAf 92.87 Random Glucose 71 L Calcium 8.7 Total Bilirubin 1.0 AST 22 ALT 30 Alkaline Phosphatase 84 Total Protein 7.2 Albumin 3.6 POC Urine HCG, Qual Negative Valproic Acid Syphilis Serology HIV Ag/Ab Combo Qual Negative 07/26/19 07/26/19 07/28/19 12:05 12:05 07:30 WBC 5.0 RBC 4.51 Hgb 13.8 Hct 40.9 MCV 90.6 MCH 30.6 MCHC 33.8 RDW 13.8 Plt Count 180 MPV 8.6 Sodium Potassium Chloride Carbon Dioxide Anion Gap BUN Creatinine Est GFR (CKD-EPI)AfAm Est GFR (CKD-EPI)NonAf Random Glucose Calcium Total Bilirubin AST ALT Alkaline Phosphatase Total Protein Albumin POC Urine HCG, Qual Valproic Acid 75.0 Syphilis Serology Non-reactive HIV Ag/Ab Combo Qual labs noted and WNL however, pt has unexplained rash/dark bruising noted and repeated lab aaox3 ambulating no acute distress Assessment: 07/29/19 10:23 withdrawal sx skin assessed, dark looking bruising noted to elbow area, one in back of left calf only. It appears to be more like bruising that has now developed and pt has now discovered it. When touched pt winced and c/o tenderness. There was no other bruising/rash noted to other parts of body. Plan: labs repeated aveeno soap visitril d/c thiamine d/c tylenol prn d/c motrin d/c zofran compazine ordered prn analgesic balm bid apply ice prn
[2019-07-29] MEDS: BUDESONIDE/FORMETEROL FUMARATE 160/4.5 mcg INHALER IH SCH ×2 (10:24→22:09)
[2019-07-29] MEDS: PRENATAL VITAMINS W/ FOLIC ACID TABLET (FP) PO SCH (10:24)
[2019-07-29] MEDS: NICOTINE 21 MG/24 HOURS TOPICAL PATCH TD SCH (10:24)
[2019-07-29] MEDS ORDERED: HYDROCORTISONE 1% TOPICAL CREAM 30 GM TUBE TP ONE (10:30)
[2019-07-29] MEDS: METHYL SALICYLATE/MENTHOL OINT 30 GM TUBE TP SCH ×2 (12:05→22:10)
[2019-07-29] MEDS ORDERED: HYDROCORTISONE 1% TOPICAL CREAM 30 GM TUBE TP SCH (14:00)
[2019-07-29 14:52] LABS: BASO % 0.4 % (0-2.0); EOS % 0.8 % (0-4.5); HEMATOCRIT 41.7 % (32.4-45.2); HEMOGLOBIN 14.1 GM/dL (10.7-15.3); LYMPH % 28.2 % (8-40); MCH 30.1 pg (25.7-33.7); MCHC 33.8 g/dl (32.0-36.0); MEAN CELL VOLUME 89.2 fl (80-96); MEAN PLT VOLUME 8.3 fl (7.5-11.1); MONO % 8.6 % (3.8-10.2); PLATELET COUNT 179 K/MM3 (134-434); RBC 4.67 M/mm3 (3.60-5.2); WHITE BLOOD COUNT 5.8 K/mm3 (4.0-10.0)
[2019-07-29 15:00] LABS: ALBUMIN 3.6 g/dl (3.4-5.0); BILIRUBIN,TOTAL 0.6 mg/dL (0.2-1); BLOOD UREA NITROGEN 9.2 mg/dL (7-18); CALCIUM 9.2 mg/dL (8.5-10.1); CREATININE 0.9 mg/dL (0.55-1.3); POTASSIUM 4.1 mmol/L (3.5-5.1); TOT PROT 7.2 g/dl (6.4-8.2)
[2019-07-29] MEDS ORDERED: QUEtiapine FUMARATE 50 MG TABLET ONE (21:01)
[2019-07-29] MEDS ORDERED: QUEtiapine FUMARATE 200 MG TABLET ONE (21:01)
[2019-07-29] MEDS: QUETIAPINE FUMARATE 50 MG, QUETIAPINE FUMARATE 200 MG PO SCH (22:07)
[2019-07-29] MEDS: LIDOCAINE PATCH REMOVAL MC SCH (22:10)
[2019-07-30] MEDS ORDERED: METHADONE HCL 10 MG TABLET (FOR DETOX USE ONLY) PO ONE ×2 (06:00→10:00)
--- NOTE | 2019-07-30 08:39 | DS ---
[facility] Detox Discharge Summary Admission Date: 07/26/19 Discharge Date: 07/30/19 - History Present History: Alcohol Dependence, Opioid Dependence - Physical Exam Results Vital Signs: Vital Signs Temperature 97.3 F L 07/30/19 05:44 Pulse Rate 86 07/30/19 05:44 Respiratory Rate 16 07/30/19 05:44 Blood Pressure 93/60 07/30/19 05:44 O2 Sat by Pulse Oximetry (%) 99 07/30/19 05:44 Pertinent Admission Physical Exam Findings: Vital Signs Temperature 97.3 F L 07/30/19 05:44 Pulse Rate 86 07/30/19 05:44 Respiratory Rate 16 07/30/19 05:44 Blood Pressure 93/60 07/30/19 05:44 O2 Sat by Pulse Oximetry (%) 99 07/30/19 05:44 Laboratory Tests 07/26/19 07/26/19 07/26/19 11:24 12:05 12:05 WBC RBC Hgb Hct MCV MCH MCHC RDW Plt Count MPV Absolute Neuts (auto) Neutrophils % Lymphocytes % Monocytes % Eosinophils % Basophils % Nucleated RBC % Sodium 139 Potassium 4.0 Chloride 108 H Carbon Dioxide 26 Anion Gap 6 L BUN 8.4 Creatinine 0.8 Est GFR (CKD-EPI)AfAm 107.64 Est GFR (CKD-EPI)NonAf 92.87 Random Glucose 71 L Calcium 8.7 Total Bilirubin 1.0 AST 22 ALT 30 Alkaline Phosphatase 84 Total Protein 7.2 Albumin 3.6 POC Urine HCG, Qual Negative Valproic Acid Syphilis Serology HIV Ag/Ab Combo Qual Negative 07/26/19 07/26/19 07/28/19 12:05 12:05 07:30 WBC 5.0 RBC 4.51 Hgb 13.8 Hct 40.9 MCV 90.6 MCH 30.6 MCHC 33.8 RDW 13.8 Plt Count 180 MPV 8.6 Absolute Neuts (auto) Neutrophils % Lymphocytes % Monocytes % Eosinophils % Basophils % Nucleated RBC % Sodium Potassium Chloride Carbon Dioxide Anion Gap BUN Creatinine Est GFR (CKD-EPI)AfAm Est GFR (CKD-EPI)NonAf Random Glucose Calcium Total Bilirubin AST ALT Alkaline Phosphatase Total Protein Albumin POC Urine HCG, Qual Valproic Acid 75.0 Syphilis Serology Non-reactive HIV Ag/Ab Combo Qual 07/29/19 07/29/19 10:40 10:40 WBC 5.8 RBC 4.67 Hgb 14.1 Hct 41.7 MCV 89.2 MCH 30.1 MCHC 33.8 RDW 14.0 Plt Count 179 MPV 8.3 Absolute Neuts (auto) 3.6 Neutrophils % 62.0 Lymphocytes % 28.2 Monocytes % 8.6 Eosinophils % 0.8 Basophils % 0.4 Nucleated RBC % 0 Sodium 140 Potassium 4.1 Chloride 105 Carbon Dioxide 28 Anion Gap 7 L BUN 9.2 Creatinine 0.9 Est GFR (CKD-EPI)AfAm 93.35 Est GFR (CKD-EPI)NonAf 80.54 Random Glucose 85 Calcium 9.2 Total Bilirubin 0.6 AST 22 ALT 36 Alkaline Phosphatase 94 Total Protein 7.2 Albumin 3.6 POC Urine HCG, Qual Valproic Acid Syphilis Serology HIV Ag/Ab Combo Qual aaox3 ambulating no acute distress skin rash/and or bruising remain same. continue with hydrocortisone cream. - Treatment Hospital Course: Detox Protocol Followed, Detoxed Safely, Responded well, Discharged Condition Good, Rehab Referral Accepted - Medication Discharge Medications: Ambulatory Orders Divalproex *ER* [Depakote *ER* -] 750 mg PO BID #60 tablet.sa 03/05/18 Naloxone HCl [Narcan] 4 mg NS ASDIR PRN #1 spray 01/28/19 Albuterol Sulfate Inhaler - [Ventolin HFA Inhaler -] 2 inh PO Q4H PRN #1 inhaler 01/30/19 Budesonide/Formeterol Fumarate [SYMBICORT 160/4.5mcg -] 1 inh IH BID #1 inhaler 01/30/19 Buspirone HCl [Buspar -] 10 mg PO BID #30 tablet 01/30/19 Beclomethasone Dipropionate [Qvar Redihaler] 10.6 gm IH PRN 07/26/19 Quetiapine Fumarate [Seroquel -] 250 mg PO HS 07/26/19 - Diagnosis (1) Substance-induced sleep disorder Current Visit: Yes Status: Acute (2) Uncomplicated opioid dependence Current Visit: Yes Status: Chronic (3) Bipolar disorder Current Visit: Yes Status: Chronic (4) Alcohol dependence with uncomplicated withdrawal Current Visit: Yes Status: Chronic (5) Cannabis dependence Current Visit: Yes Status: Chronic (6) Fracture, tooth Current Visit: Yes Status: Chronic Qualifiers: Encounter type: initial encounter Fracture type: closed Qualified Code(s): S02.5XXA - Fracture of tooth (traumatic), initial encounter for closed fracture (7) IVDU (intravenous drug user) Current Visit: No Status: Acute (8) Weight loss Current Visit: No Status: Acute (9) Anxiety Current Visit: No Status: Chronic (10) Asthma Current Visit: Yes Status: Chronic Qualifiers: Asthma severity: moderate Asthma persistence: persistent Asthma complication type: uncomplicated Qualified Code(s): J45.40 - Moderate persistent asthma, uncomplicated (11) Drug-induced mood disorder Current Visit: No Status: Chronic (12) Herniated cervical disc Current Visit: No Status: Chronic (13) Herniated cervical intervertebral disc Current Visit: No Status: Chronic (14) Herniated lumbar intervertebral disc Current Visit: No Status: Chronic (15) History of bipolar disorder Current Visit: No Status: Chronic (16) History of depression Current Visit: No Status: Chronic (17) Insomnia Current Visit: No Status: Chronic Qualifiers: Insomnia type: unspecified Qualified Code(s): G47.00 - Insomnia, un specified (18) Nicotine dependence Current Visit: No Status: Chronic Qualifiers: Nicotine product type: cigarettes Substance use status: in withdrawal Qualified Code(s): F17.213 - Nicotine dependence, cigarettes, with withdrawal (19) PTSD (post-traumatic stress disorder) Current Visit: No Status: Chronic (20) Use of cane as ambulatory aid Current Visit: No Status: Chronic (21) Bipolar disorder Current Visit: No Status: Suspected Qualifiers: Active/Remission status: in partial remission Most recent bipolar episode type: mixed Qualified Code(s): F31.77 - Bipolar disorder, in partial remission, most recent episode mixed - AMA Did Patient Leave Against Medical Advice: No
[2019-07-30] MEDS ORDERED: diazePAM 5 MG TABLET PO ONE (08:55)
[2019-07-30] MEDS: busPIRone HCL 10 MG TABLET (FP) PO SCH (09:13)
[2019-07-30] MEDS: DIVALPROEX 500 MG, DIVALPROEX 250 MG PO SCH (09:13)
[2019-07-30] MEDS: BUDESONIDE/FORMETEROL FUMARATE 160/4.5 mcg INHALER IH SCH (09:14)
[2019-07-30] MEDS: PRENATAL VITAMINS W/ FOLIC ACID TABLET (FP) PO SCH (09:16)
[2019-07-30] MEDS: METHYL SALICYLATE/MENTHOL OINT 30 GM TUBE TP SCH (09:39)
[2019-07-30] MEDS: LIDOCAINE 5% TOPICAL PATCH TP SCH (09:40)
[2019-07-30] MEDS: NICOTINE 21 MG/24 HOURS TOPICAL PATCH TD SCH (09:41)
[2019-07-30 09:44] VITALS: BP 99/67; PULSE 85; TEMP 98.1
--- NOTE | 2019-07-30 13:43 | PN ---
[facility] Progress Note Note: Patient is discharged today, Scripts for 30 days supply of medications(Seroquel 200 mg/hs, Depakote 750 mg/bid, Buspar 10 mg/bid) are electronically transmitted to [facility], [address] [place] [address]
[2019-07-31] MEDS ORDERED: METHADONE HCL 5 MG TABLET (FOR DETOX USE ONLY) PO ONE (06:00)
== END 2019-07-30 09:28 | disposition home or self-care (01) | DRG 897 ==
LOC: YASAS 10:15 → Y6N 12:12
PROVIDERS: ADMIT Allergy & Immunology; ATTEND Allergy & Immunology
PROC: HZ2ZZZZ Detoxification Services for Substance Abuse Treatment (ICD-10-PCS; principal; 2019-07-26)
DX: F10.230 Alcohol dependence with withdrawal, uncomplicated (principal); F11.20 Opioid dependence, uncomplicated; F19.282 Other psychoactive substance dependence with psychoactive substance-induced sleep disorder; F12.20 Cannabis dependence, uncomplicated; F17.210 Nicotine dependence, cigarettes, uncomplicated; F19.24 Other psychoactive substance dependence with psychoactive substance-induced mood disorder; F31.77 Bipolar disorder, in partial remission, most recent episode mixed; F41.9 Anxiety disorder, unspecified; F43.10 Post-traumatic stress disorder, unspecified; G47.00 Insomnia, unspecified; J45.40 Moderate persistent asthma, uncomplicated; L98.8 Other specified disorders of the skin and subcutaneous tissue; M51.26 Other intervertebral disc displacement, lumbar region; M50.20 Other cervical disc displacement, unspecified cervical region; M51.24 Other intervertebral disc displacement, thoracic region; R21 Rash and other nonspecific skin eruption; R63.4 Abnormal weight loss; S02.5XXA Fracture of tooth (traumatic), initial encounter for closed fracture; Z68.24 Body mass index [BMI] 24.0-24.9, adult; Z91.410 Personal history of adult physical and sexual abuse; Z98.51 Tubal ligation status; Z91.5 Personal history of self-harm; Z99.89 Dependence on other enabling machines and devices; X58.XXXA Exposure to other specified factors, initial encounter; Y93.89 Activity, other specified; Y92.89 Other specified places as the place of occurrence of the external cause; Y99.8 Other external cause status
CPT/HCPCS: 36415; 80053; 80164; 81025; 85025; 85027; 87389; Q0162

== ENCOUNTER 2023-03-11 10:45 | Inpatient (IN) | payer OTHER ==
[2023-03-11 11:19] VITALS: BMI 29.1
[2023-03-11] MEDS ORDERED: LOPERAMIDE HCL 2 MG CAPSULE PO PRN (12:29)
[2023-03-11] MEDS ORDERED: NICOTINE POLACRILEX 2 MG GUM BUC PRN (12:29)
[2023-03-11] MEDS ORDERED: NALOXONE HCL (KLOXXADO) 8 MG SPRAY NS PRN (12:29)
[2023-03-11] MEDS ORDERED: NALOXONE HCL 0.4 MG/ML VIAL IM PRN (12:29)
[2023-03-11] MEDS ORDERED: guaiFENesin 600 MG TABLET.ER (FP) PO PRN (12:29)
[2023-03-11] MEDS ORDERED: IBUPROFEN 400 MG TABLET (FP) PO PRN (12:29)
[2023-03-11] MEDS ORDERED: IBUPROFEN 600 MG TABLET (FP) PO PRN (12:29)
[2023-03-11] MEDS ORDERED: MAGNESIUM HYDROX 2400MG/30ML ORAL SUSPENSION 30 ML CUP PO PRN (12:29)
[2023-03-11] MEDS ORDERED: ACETAMINOPHEN 325 MG TABLET (FP) PO PRN (12:29)
[2023-03-11] MEDS ORDERED: DICYCLOMINE HCL 10 MG CAPSULE PO PRN (12:29)
[2023-03-11] MEDS ORDERED: ONDANSETRON *ODT* 4 MG TABLET SL PRN (12:29)
[2023-03-11] MEDS ORDERED: MAG HYDROX/AL HYDROX/SIMETH 30 ML UNIT-DOSE CUP PO PRN (12:29)
[2023-03-11] MEDS ORDERED: BENZONATATE 200 MG CAPSULE PO PRN (12:29)
[2023-03-11] MEDS ORDERED: BENZOCAINE/MENTHOL (CHLORASEPTIC ) LOZENGE MM PRN (12:29)
[2023-03-11] MEDS ORDERED: METHOCARBAMOL 500 MG TABLET PO PRN (12:29)
[2023-03-11] MEDS ORDERED: BISMUTH SUBSALICYLATE 524 MG/30 ML PO PRN (12:29)
[2023-03-11] MEDS ORDERED: POLYETHYLENE GLYCOL (HEALTHYLAX) 3350 17 GM PACKET PO PRN (12:29)
[2023-03-11] MEDS ORDERED: cloNIDine HCL 0.1 MG TABLET PO PRN (12:33)
[2023-03-11] MEDS ORDERED: diazePAM 5 MG TABLET PO PRN (12:35)
[2023-03-11] MEDS ORDERED: diazePAM 5 MG TABLET ONE (12:53)
[2023-03-11] MEDS ORDERED: methaDONE HCL 10 MG TABLET (FOR DETOX USE ONLY) PO ONE (13:15)
[2023-03-11] MEDS ORDERED: ALBUTEROL SO4 HFA INHALER IH PRN (14:58)
[2023-03-11 16:51] LABS: HEMATOCRIT 37.6 % (32.4-45.2); HEMOGLOBIN 12.6 GM/dL (10.7-15.3); MCH 31.5 pg (25.7-33.7); MCHC 33.5 g/dl (32.0-36.0); MEAN CELL VOLUME 93.9 fl (80-96); PLATELET COUNT 188 10^3/uL (134-434); RDW 13.9 % (11.6-15.6); WHITE BLOOD COUNT 6.3 K/mm3 (4.0-10.0)
[2023-03-11 17:20] LABS: CHLORIDE 105 mmol/L (98-107); POTASSIUM 4.2 mmol/L (3.5-5.1); SODIUM 136 mmol/L (136-145)
[2023-03-11 17:21] LABS: CALCIUM 8.9 mg/dL (8.5-10.1)
[2023-03-11 17:22] LABS: ALBUMIN 3.2 g/dl (3.4-5.0); ANION GAP 2 mmol/L (4-13); BLOOD UREA NITROGEN 8.8 mg/dL (7-18); CO2 30 mmol/L (21-32); GLUCOSE,RANDOM 102 mg/dL (74-106)
[2023-03-11 17:25] LABS: SGOT/AST 21 U/L (15-37); SGPT/ALT 38 U/L (13-61)
[2023-03-11 17:27] LABS: BILIRUBIN,TOTAL 0.4 mg/dL (0.2-1); TOT PROT 6.6 g/dl (6.4-8.2)
[2023-03-11 17:28] LABS: ALK PHOS 87 U/L (45-117)
[2023-03-11 18:22] VITALS: BP 106/72; PULSE 74; RESP 18; TEMP 97.8
[2023-03-11] MEDS ORDERED: THIAMINE HCL 100 MG TABLET (FP) PO SCH (22:00)
[2023-03-11] MEDS ORDERED: MONTELUKAST NA 10 MG TABLET PO SCH (22:00)
[2023-03-11] MEDS ORDERED: MELATONIN 5 MG TABLETS PO SCH (22:00)
[2023-03-11] MEDS ORDERED: BUDESONIDE/FORMETEROL FUMARATE 160/4.5 mcg INHALER IH SCH (22:00)
[2023-03-12] MEDS ORDERED: PRENATAL VITAMINS W/ FOLIC ACID TABLET (FP) PO SCH (10:00)
[2023-03-12] MEDS ORDERED: NICOTINE 21 MG/24 HOURS TOPICAL PATCH TD SCH (10:00)
[2023-03-12] MEDS ORDERED: FLU VACCINE (FLULAVAL) PF 60 MCG/0.5 ML SYRINGE 2023-2024 IM ONE (12:00)
[2023-03-13] MEDS ORDERED: methaDONE HCL 10 MG TABLET (FOR DETOX USE ONLY) PO ONE (10:00)
[2023-03-15] MEDS ORDERED: methaDONE HCL 10 MG TABLET (FOR DETOX USE ONLY) PO ONE (10:00)
== END 2023-03-11 18:47 | disposition left against medical advice (07) | DRG 770 ==
LOC: YASAS 10:45 → Y6N 13:14
PROVIDERS: ADMIT Allergy & Immunology; ATTEND Surgery
PROC: HZ2ZZZZ Detoxification Services for Substance Abuse Treatment (ICD-10-PCS; principal; 2023-03-11)
DX: F11.20 Opioid dependence, uncomplicated (principal); F13.10 Sedative, hypnotic or anxiolytic abuse, uncomplicated; F17.210 Nicotine dependence, cigarettes, uncomplicated; F31.9 Bipolar disorder, unspecified; F41.9 Anxiety disorder, unspecified; F43.10 Post-traumatic stress disorder, unspecified; J44.9 Chronic obstructive pulmonary disease, unspecified; J45.40 Moderate persistent asthma, uncomplicated; Z56.0 Unemployment, unspecified; Z59.00 Homelessness unspecified; Z88.2 Allergy status to sulfonamides; Z88.8 Allergy status to other drugs, medicaments and biological substances
CPT/HCPCS: 36415; 80053; 80307; 81025; 85027; 86780; 87635; 87811